=== PATIENT | male | born 1960 | race Caucasian/White ===

== ENCOUNTER 2020-01-30 18:47 | Inpatient (IN) | payer OTHER, SELFPAY ==
[2020-01-30] VITALS (30 sets, daily range): BP systolic 98–209; BP diastolic 52–139; PULSE 83–127; RESP 10–35; TEMP 36–36.6; O2SAT 95–99
--- NOTE | 2020-01-30 18:30 | RT.EKG_ITS ---
APPROVED REPORT Exam: Resting ECG Patient Location: E HR:95 bpm ECG Measurements Heart Rate 95 AXIS NJ 161 P 65 QRSd 90 QRS -31 QT 354 T 42 QTc 445 Conclusion Sinus rhythm...normal P axis, V-rate 60- 99 Left axis deviation...QRS axis (-30,-90)
[2020-01-30 19:07] LABS: BE (Venous) -1 mmol/L (-2-3); HCO3 (Venous) 24 mmol/L (23-28); O2 Sat (Venous) 86 %; TCO2 (Venous) 21 mmol/L (24-29); pCO2 (Venous) 41 mmHg (41-51); pH (Venous) 7.38 (7.31-7.41); pO2 (Venous) 51 mmHg
[2020-01-30 19:09] LABS: Abs Immature Grans 0.02 10^3/uL (0.0-0.06); Absolute Basophil Count 0.05 10^3/uL (0.0-0.2); Absolute Eosinophil Count 0.09 10^3/uL (0.0-0.7); Absolute Lymphocyte Count 2.75 10^3/uL (1.2-3.4); Absolute Monocyte Count 0.45 10^3/uL (0.1-0.8); Absolute Neutrophil Count 3.73 10^3/uL (1.2-6.7); Basophils % 0.7; Eosinophils % 1.3; HGB 14.8 g/dL (13.5-17.5); Immature Grans % 0.3; Lymphocytes % 38.8; MCH 29.3 pg (27.0-33.0); MCHC 35.2 % (32.0-36.0); MCV 83.2 fL (80-95); MPV 10.5 fL (8.0-11.0); Monocytes % 6.3; Neutrophils % 52.6; Nucleated RBC 0 %; Platelet Count 207 10^3/uL (130-400); RBC 5.05 10^6/uL (4.36-5.78); RDW 12.3 % (11.8-14.1); RDW-SD 37.4 fL; WBC 7.09 10^3/uL (4.4-10.8)
[2020-01-30] MEDS: PROPOFOL 1,000 MG/100 ML BTL 3 MG IVPB (19:15)
--- NOTE | 2020-01-30 19:15 | DI.CT_ITS ---
EXAM: CT HEAD CERVICAL SPINE WO CLINICAL HISTORY: trauma TECHNIQUE: COMPARISON: CT HEAD WITHOUT CONTRAST from 04/20/2013 FINDINGS: CT examination cervical spine was performed utilizing multi slice acquisition and multiplanar reconst ruction. There is an ET tube and NG tube in position. There is an anterior cervical fusion at C5-6 level which appears intact. There are degenerative changes of the cervical spine. There is no evide nce of acute fracture. No cervical mass or. No facet dislocation. Noncontrast cranial CT was performed. Ventricular system is normal in appearance. There is no evide nce of acute intracranial hemorrhage, mass effect, or midline shift. The orbital and temporal bone s tructures appear intact. Mastoid air cells and visualized paranasal sinuses predominantly clear. IMPRESSION: No evidence of acute cervical spine fracture. No evidence of acute intracranial injury. RADIATION DOSE DELIVERED: 1,566.18mGy.cm Total DLP
--- NOTE | 2020-01-30 19:15 | DI.CT_ITS ---
EXAM: CT THORAX ABD/PEL CTA TECHNIQUE: CT examination of the chest, abdomen, and pelvis was performed with bolus infusion of 100 cc of Omnipaque 350. COMPARISON: CT ABD PELVIS WITH CONTRAST from 07/14/2009 FINDINGS: There is no evidence of a thoracic vascular injury. There are dependent areas of increased intrapul monary radiodensity, atelectasis versus aspiration pneumonia versus contusion.. No pneumothorax or p leural effusion. No mediastinal hematoma. No adenopathy in the chest. Tracheobronchial tree appears i ntact. The liver shows marked steatosis. The spleen, and pancreas appear normal. Gallbladder and bile ducts are normal. Adrenals and kidneys are unremarkable except for multiple bilateral incidental renal cysts.. No evid ence of urinary tract injury or obstruction. No abdominal or pelvic vascular injury seen. 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 No abdominal or pelvic adenopathy. No significant abdominal wall hernia or he matoma. No evidence of bowel injury. No fracture identified in the region surveyed. IMPRESSION: Dependent atelectasis of both lungs versus aspiration or less likely pulmonary contusion. Follow-up chest radiographs requested. RADIATION DOSE DELIVERED: 1,340.08mGy.cm Total DLP 1,340.08mGy.cm Total DLP DATA REPOSITORY: All CT scans at this facility are submitted to the National Radiology Data Registry (NRDR) Dose Index Registry (DIR) with the [employer] ([employer]). RADIATION OPTIMIZATION: All CT scans at this facility use at least one of these dose optimization te chniques: automated exposure control; mA and/or kV adjustment per patient size (includes targeted exa ms where dose is matched to clinical indication); or iterative reconstruction.
[2020-01-30] MEDS: fentaNYL 1,000 MCG in Normal Saline 80 ML 9.9 MCG IV (19:18)
--- NOTE | 2020-01-30 19:19 | ED.GENADUL_ITS ---
Discharge Plan Disposition Patient Disposition: [facility] INPATIENT Condition: Critical Discharge Details Clinical Impression: Chest pain, Unresponsive, Alcohol intoxication, Encounter for intubation Primary Care Provider: [facility] Provider: Elliott Lieberman Home Meds and New Rx's Prescriptions: No Action penicillin V potassium 500 MG tablet 500 mg PO QID Qty: 40 RF: 0 acetaminophen-codeine [Tylenol-Codeine #3] 1 TAB tablet 1 tab PO Q4H PRN PRN (Reason: Pain) Qty: 5 RF: 0 Medical Decision Making <Cesario Robertson MD - Last Filed: 01/30/20 19:38> 59 yo male with unknown medical history comes in with ems unresponsive. He was apparently at the [employer] and had 5 alcoholic drinks. HE started to complain of ch est pain there and apparently was given nitro by bystanders (unclear if this was his own nitro or another persons). He then collapsed to the groud and since ems has had him he has been unresponsive to any stimuli. glucose with them was over 200. HE arrives with a gcs of 3, pupils are dilated but are responsive. No reported seizure like activity. No signs of trauma, ekg shows sinus rhythm without ishcemic findings. He had snoring respirations on arrival and was not protecting his airway so I intubated him with a 7.5 ET tube using 100mg rocuronium and 100mg propofol without complications. Unclear etiology of his unresponsiveness and chest pain earlier. Could be just alcohol intoxication but given the fall and chest pain will obtian ct head and c sspine to evaluate for traumatic injuries. Will also obtain cta chest/abd/pelvis to evaluate for disseciton as well. Will obtain labs including troponin, cbc, metabolic panel and drug screen. Pt's labs unremarkable thus far, negative troponin, tolerating the ventilator well, heading to CT now. Pt will be signed out to oncoming provider pending imaging results Differential Diagnosis Differential Diagnosis: tbi, acs, dissection, alcohol intoxication Lab Data Lab results reviewed: Yes I reviewed the patient's lab results. ECG Data Attestation: I personally reviewed and interpreted this ECG (s) as follows: Prior ECG tracings: not available for review Interpretation: sinus rhythm, rate of 95, pr 161, qtc 445 <Elliott Lieberman DO - Last Filed: 01/30/20 22:58> Upon my evaluation, this patient had a high probability of imminent or life- threatening deterioration, which required my direct attention, intervention, and personal management. I have personally provided 30 minutes of critical care time exclusive of time spent on separately billable procedures. Time includes review of laboratory data, radiology results, discussion with consultants, managing the ventilator, sedatives, and monitoring for potential decompensation. Interventions were performed as documented. Patient was signed out to me by my colleague Dr. Cesario Aguero, please refer to his HPI assessment and plan physical exam. Patient was intubated prior to my arrival, started on medications work-up was started we are pending read of imaging and the return of the rest of his labs. Laboratory work-up has returned, relatively unremarkable, no white count bandemia or left shift, CT scan of the chest abdomen pelvis is positive for signs of aspiration pneumonia, CT scan of the head neck is negative for acute process per virtual radiology. Zosyn was started for suspected aspiration pneumonia, VBG unremarkable, electrolytes demonstrate a sodium of 129, calcium of 7.6, both of which I feel unlikely to be the cause of the patient's symptomatology, proBNP and initial troponin are negative, TSH benign, urine drug screen here negative, sugar elevated, salicylates and acetaminophen negative, ethyl alcohol 132. Patient was initially sedated with propofol and fentanyl, Versed was then added, eventually on these the patient began to slowly start to wake up, with purpose ful movements of all extremities, and vaguely interacting and responding to her questions and statements. He has tried writing on a board. He does not appear to be bucking the vent at this time, and appears stable. Uncertain as to the exact etiology of the cause of the patient's symptoms, I do wonder if he had dysrhythmia, and then became altered secondary to transient intracranial ischemia from the dysrhythmia. Although he is on multiple sedatives he does not seem to show significant focal deficit at this time. No indication for TPA currently. I think this would be harmful for the patient in the current scenario. I did contact the hospital and she will come and assess the patient. [facility] secondary to a lack of room availability at the hospital. 10:56 PM Patient will be admitted for further management. I have extensively reviewed the treatment plan with the patient. I have addressed all patient concerns at this time. I have also discussed the plan with the admitting physician and they agree with the current assessment and plan and have agreed to assume responsibility for the patient. All parties demonstrate verbal understanding and agreement with our assessment and plan at this time. FINDINGS: Brain: Normal. No hemorrhage. Unremarkable white matter. No mass effect. Cerebral ventricles: No ventriculomegaly. Bones/joints: Unremarkable. No acute fracture. Paranasal sinuses: There is a small amount of fluid in the right maxillary sinus and a nasal mucosal thickening and opacification of a few ethmoid air cells. Mastoid air cells: Visualized mastoid air cells are well aerated. Soft tissues: Unremarkable. Nasal cavity: There is minimal nasal mucosal thickening IMPRESSION: 1. No acute intracranial abnormality. 2. Evidence of sinus inflammation. FINDINGS: Tubes, catheters and devices: Orotracheal tube terminates in the upper trachea at the level of T2. Orogastric tube traverses the visualized portion of the upper esophagus. Bones/joints: There is surgical fusion C5-C6 including anterior orthopedic plate. No acute fracture or spondylolisthesis. Discs/Spinal canal/Neural foramina: No significant disc protrusion. No severe spinal canal stenosis. No significant neural foraminal narrowing. Soft tissues: Unremarkable. Lungs: Lung apices are normal. IMPRESSION: No acute findings. Thank you for allowing us to participate in the care of your patient. Dictated and Authenticated by: Dell Maurer MD 01/30/2020 8:21 PM Eastern Time ([place] & [place]) IMPRESSION: 1. No thoracic aortic dissection or aneurysm. 2. Dependent bibasilar airspace opacities, right greater than left, some of which represents atelectasis but there may be underlying aspiration or bronchopneumonia in these regions as well. Recommend clinical correlation. IMPRESSION: 1. No abdominal aortic aneurysm or dissection identified. 2. No acute process within the abdomen or pelvis identified. 3. 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 4. Hepatic steatosis. 5. Multiple simple renal cysts. No follow-up is recommended. Thank you for allowing us to participate in the care of your patient. Dictated and Authenticated by: Freddie Ashley MD 01/30/2020 8:40 PM Eastern Time ([place] & [place]) HPI <Cesario Robertson MD - Last Filed: 01/30/20 19:38> General Mode of arrival: EMS . Date/Time Provider Initiated Documentation: 01/30/20 19:13 . Limitations to Documentation: altered mental status . Information obtained by: EMS . History of Present Illness 59 year old M presents to the emergency department with the chief complaint of unresponsive, Patient started experiencing this hour(s) (1) and it has been constant. Patient notes chest pain. Related Data Home Medications Medication Instructions Recorded Confirmed acetaminophen-codeine [Tylenol 1 tab PO Q4H PRN PRN #5 tab 06/09/15 W/Codeine #3 Tablet] penicillin V potassium 500 mg PO QID #40 tablet 06/09/15 Previous Rx's Medication Instructions Recorded acetaminophen-codeine [Tylenol 1 tab PO Q4H PRN PRN #5 tab 06/09/15 W/Codeine #3 Tablet] penicillin V potassium 500 mg PO QID #40 tablet 06/09/15 Allergies Allergy/AdvReac Type Severity Reaction Status Date / Time No Known Allergies Allergy Unverified 06/09/15 22:23 Review of Systems <Cesario Robertson MD - Last Filed: 01/30/20 19:38> Unobtainable due to mental status PFSH <Cesario Robertson MD - Last Filed: 01/30/20 19:38> Social History Smoking/Tobacco Use Status: Never Alcohol Intake: current Drug use: Never Exam <Cesario Robertson MD - Last Filed: 01/30/20 19:38> Const General: other (unresponsive) Orientation: alert [facility] Head: normal to inspection Ears: external ears normal General nose exam: external nose normal Mouth: moist mucous membranes Eyes General: appearance normal, both eyes and all related structures Neck Neck: normal visual inspection Resp Effort & Inspection: normal respiratory effort Cardio Rate: regular rate GI Palpation: soft Skin General skin exam: no rashes or lesions noted Neuro General: patient obtunded Extrem General: normal to inspection Psych Mental Status: mental status grossly normal Course <Cesario Robertson MD - Last Filed: 01/30/20 19:38> Lab/Test Results Lab/Test Results: Laboratory Tests Range/Units 01/30/20 01/30/20 01/30/20 18:38 19:00 19:00 WBC (4.4-10.8) 10^3/uL 7.09 RBC (4.36-5.78) 10^6/uL 5.05 Hgb (13.5-17.5) g/dL 14.8 Hct (40.0-50.0) % 42.0 MCV (80-95) fL 83.2 MCH (27.0-33.0) pg 29.3 MCHC (32.0-36.0) % 35.2 RDW (11.8-14.1) % 12.3 Plt Count (130-400) 10^3/uL 207 MPV (8.0-11.0) fL 10.5 Immature Gran % 0.3 Neutrophils % 52.6 Lymphocytes % 38.8 Monocytes % 6.3 Eosinophils % 1.3 Basophils % 0.7 Nucleated RBC % % 0 Absolute Neutrophils (1.2-6.7) 10^3/uL 3.73 Absolute Lymphocytes (1.2-3.4) 10^3/uL 2.75 Absolute Monocytes (0.1-0.8) 10^3/uL 0.45 Absolute Eosinophils (0.0-0.7) 10^3/uL 0.09 Absolute Basophils (0.0-0.2) 10^3/uL 0.05 VBG pH (7.31-7.41) 7.38 VBG pCO2 (41-51) mmHg 41 VBG pO2 mmHg 51 VBG HCO3 (23-28) mmol/L 24 VBG Total CO2 (24-29) mmol/L 21 L VBG O2 Saturation % 86 VBG Base Excess (-2-3) mmol/L -1 Sodium Cancelled Potassium Cancelled Chloride Cancelled Carbon Dioxide Cancelled Anion Gap Cancelled BUN Cancelled Creatinine Cancelled Estimated GFR/1.73 m2 Cancelled Glucose Cancelled Calcium Cancelled Procedures <Cesario Robertson MD - Last Filed: 01/30/20 19:38> Intubation Time out performed: Yes sedative: other (propofol) Mg Given: 100 paralytic: Rocuronium Mg Given: 100 Laryngoscope: fiberoptic video scope (size 4 cmac mac blade) ET Tube Size: 7.5 ET Tube Uncuffed: No Tube Secured Depth (cm): 22 Tube Secured Location: lips Tube Placement Confirmation: visualized tube passing through cords, equal breath sounds bilaterally, no breath sounds over epigastrum and confirmation by capnometry Patient Tolerated Procedure: no complications Intubation Complications: none Critical Care Time <Cesario Robertson MD - Last Filed: 01/30/20 19:38> Critical Care Time Critical Care Time: Yes Total Critical Care Time: 60 (minutes) Attestation: time spent with frequent reassessments, hemodynamic monitoring and lab review in patient with gcs of 3 requiring intubation and potential to deteriorate at any time Sign Out <Cesario Robertson MD - Last Filed: 01/30/20 19:38> Sign Out Data: Sign Out Comment: Unknown medical history, was at [facility] drinking alcohol when he complained of chest pain and was given nitro by bystanders then collapsed. GCS of 3 on arrival in ED, ct head/cspine and cta chest/abd/pelvis pending Last updated by Cesario Robertson MD at 01/30/20 19:41
[2020-01-30 19:33] LABS: Albumin 3.6 g/dL (3.4-5.0); Alkaline Phosphatase 83 U/L (46-116); BUN 11 mg/dL (7-18); Bilirubin, Total 0.6 mg/dL (0.2-1.0); CREATININE 0.96 mg/dL (0.70-1.30); Calcium 7.6 mg/dL (8.5-10.1); Chloride 95 mmol/L (98-107); ETHANOL BLOOD 132.3 mg/dL (<3); Lipase 99 U/L (73-393); Magnesium 2.2 mg/dL (1.8-2.4); NT-proBNP 20 pg/mL (<300); Potassium 3.9 mmol/L (3.5-5.1); Sodium 129 mmol/L (136-145); TSH (W/Ref FT4) 1.31 uIU/mL (0.36-3.74); Total Protein 7.2 g/dL (6.4-8.2); Troponin I < 0.05 ng/mL (<0.06)
[2020-01-30 19:34] LABS: Glucose 356 mg/dL (74-106)
[2020-01-30 19:36] LABS: Salicylate < 2.8 mg/dL (2.8-20.0)
[2020-01-30] MEDS: Vecuronium 10 MG VIAL IVP (19:38)
[2020-01-30 19:47] LABS: Acetaminophen < 2 ug/mL (10-30)
--- NOTE | 2020-01-30 20:22 | DI.VRAD_ITS ---
PROCEDURE INFORMATION: Exam: CT Head Without Contrast Exam date and time: 01/30/2020 7:52 PM Age: 59 years old Clinical indication: Injury or trauma; Blunt trauma (contusions or hematomas); Unconscious; Injury date: 01/30/20; Injury details: Fall from standing hit head TECHNIQUE: Imaging protocol: Computed tomography of the head without contrast. Radiation optimization: All CT scans at this facility use at least one of these dose optimization techniques: automated exposure control; mA and/or kV adjustment per patient size (includes targeted exams where dose is matched to clinical indication); or iterative reconstruction. COMPARISON: CT HEAD WITHOUT CONTRAST 04/20/2013 8:21 PM FINDINGS: Brain: Normal. No hemorrhage. Unremarkable white matter. No mass effect. Cerebral ventricles: No ventriculomegaly. Bones/joints: Unremarkable. No acute fracture. Paranasal sinuses: There is a small amount of fluid in the right maxillary sinus and a nasal mucosal thickening and opacification of a few ethmoid air cells. Mastoid air cells: Visualized mastoid air cells are well aerated. Soft tissues: Unremarkable. Nasal cavity: There is minimal nasal mucosal thickening IMPRESSION: 1. No acute intracranial abnormality. 2. Evidence of sinus inflammation. PROCEDURE INFORMATION: Exam: CT Cervical Spine Without Contrast Exam date and time: 01/30/2020 7:52 PM Age: 59 years old Clinical indication: Injury or trauma; Blunt trauma (contusions or hematomas); Unconscious; Injury date: 01/30/20; Injury details: Fall from standing hit head TECHNIQUE: Imaging protocol: Computed tomography images of the cervical spine without contrast. Radiation optimization: All CT scans at this facility use at least one of these dose optimization techniques: automated exposure control; mA and/or kV adjustment per patient size (includes targeted exams where dose is matched to clinical indication); or iterative reconstruction. COMPARISON: CT HEAD WITHOUT CONTRAST 04/20/2013 8:21 PM FINDINGS: Tubes, catheters and devices: Orotracheal tube terminates in the upper trachea at the level of T2. Orogastric tube traverses the visualized portion of the upper esophagus. Bones/joints: There is surgical fusion C5-C6 including anterior orthopedic plate. No acute fracture or spondylolisthesis. Discs/Spinal canal/Neural foramina: No significant disc protrusion. No severe spinal canal stenosis. No significant neural foraminal narrowing. Soft tissues: Unremarkable. Lungs: Lung apices are normal. IMPRESSION: No acute findings. Dictated and Authenticated by: Dell Maurer MD. Ordering:ALISTAIR Nassar MD
[2020-01-30] MEDS: Omnipaque 350 MG/ML 100 ML BTL IJ (20:24)
[2020-01-30] MEDS: Normal Saline - Diluent 50 ML VIAL IV (20:25)
[2020-01-30] MEDS: Normal Saline Flush 10 ML SYR IVP (20:25)
[2020-01-30 20:31] LABS: ALT 36 U/L (16-63); AST 22 U/L (15-37)
[2020-01-30 20:32] LABS: Bilirubin, Direct 0.08 mg/dL (0.00-0.20)
[2020-01-30] MEDS: PIPERACILLIN/TAZO 4.5 GM in Normal Saline 100 ML IVPB (20:38)
--- NOTE | 2020-01-30 20:40 | DI.VRAD_ITS ---
PROCEDURE INFORMATION: Exam: CT Angiography Chest With Contrast Exam date and time: 01/30/2020 7:19 PM Age: 59 years old Clinical indication: Type not specified; Other: Chest pain, unresponsivr; Patient HX: Chest pain, unresponsive TECHNIQUE: Imaging protocol: Computed tomographic angiography of the chest with intravenous contrast. 3D rendering (Not supervised by radiologist): MIP and/or 3D reconstructed images were created by the technologist. Radiation optimization: All CT scans at this facility use at least one of these dose optimization techniques: automated exposure control; mA and/or kV adjustment per patient size (includes targeted exams where dose is matched to clinical indication); or iterative reconstruction. Contrast material: OMNIPAQUE 350; Contrast volume: 100 ml; Contrast route: INTRAVENOUS (IV); COMPARISON: CR ABD FLAT UPRIGHT PA CHEST 08/10/2014 10:11 PM FINDINGS: Tubes, catheters and devices: There is an endotracheal tube in place with its tip at the level of the clavicular heads. There is a nasogastric tube in place, with its tip within the lateral gastric body. Pulmonary arteries: See Aorta finding. Aorta: There is no thoracic aortic dissection or aneurysm. Evaluation for pulmonary embolism is limited due to suboptimal opacification of the central pulmonary arteries, but no central pulmonary embolism is identified on this exam. Lungs: There are dependent bibasilar airspace opacities, some of which appears to represent atelectasis, but there may be underlying aspiration or bronchopneumonia in these regions as well. There is mild atelectasis within the lingula. Pleural space: Unremarkable. No pneumothorax. No pleural effusion. Heart: Heart size is normal. There is no bowing of the interventricular septum or disproportionate enlargement of the right heart. No pericardial effusion is identified. Lymph nodes: Unremarkable. No enlarged lymph nodes. Bones/joints: There is anterior fusion hardware at C5-C6 which appears grossly intact. No acute fractures or subluxations are identified. Soft tissues: Unremarkable. IMPRESSION: 1. No thoracic aortic dissection or aneurysm. 2. Dependent bibasilar airspace opacities, right greater than left, some of which represents atelectasis but there may be underlying aspiration or bronchopneumonia in these regions as well. Recommend clinical correlation. PROCEDURE INFORMATION: Exam: CT Angiography Abdomen and Pelvis With Contrast Exam date and time: 01/30/2020 7:19 PM Age: 59 years old Clinical indication: Type not specified; Other: Chest pain, unresponsivr; Patient HX: Chest pain, unresponsive TECHNIQUE: Imaging protocol: Computed tomographic angiography of the abdomen and pelvis with intravenous contrast material. 3D rendering (Not supervised by radiologist): MIP and/or 3D reconstructed images were created by the technologist. Radiation optimization: All CT scans at this facility use at least one of these dose optimization techniques: automated exposure control; mA and/or kV adjustment per patient size (includes targeted exams where dose is matched to clinical indication); or iterative reconstruction. Contrast material: OMNIPAQUE 350; Contrast volume: 100 ml; Contrast route: INTRAVENOUS (IV); COMPARISON: CR ABD FLAT UPRIGHT PA CHEST 08/10/2014 10:11 PM FINDINGS: Aorta: See Celiac trunk and mesenteric arteries finding. Celiac trunk and mesenteric arteries: There is focal narrowing of the origin of the celiac axis, best seen on image 68, series 8, suggesting mass effect associated with the adjacent median arcuate ligament. The distal celiac axis enhances normally. There is no aneurysm or dissection involving the abdominal aorta or iliac arteries. There is mild atherosclerotic calcification of the inferior aspect of the abdominal aorta. Renal arteries: No occlusion or significant stenosis. Right iliac arteries: No occlusion or significant stenosis. Left iliac arteries: No occlusion or significant stenosis. Liver: The liver parenchyma demonstrates diffusely decreased attenuation suggesting steatosis. Gallbladder and bile ducts: Unremarkable. No calcified stones. No ductal dilation. Pancreas: Unremarkable. No mass. No ductal dilation. Spleen: Unremarkable. No splenomegaly. Adrenals: Unremarkable. No mass. Kidneys and ureters: There are multiple bilateral simple renal cysts, the largest measuring 5.7 x 6.6 cm at the lateral lower pole the left kidney on image 91, series 4. Stomach and bowel: Unremarkable. No obstruction. No mucosal thickening. Appendix: No evidence of appendicitis. Intraperitoneal space: Unremarkable. No free air. No significant fluid collection. Lymph nodes: Unremarkable. No enlarged lymph nodes. Urinary bladder: Unremarkable. No mass. Reproductive: Unremarkable as visualized. Bones/joints: No acute fractures or subluxations are identified. Soft tissues: Unremarkable. IMPRESSION: 1. No abdominal aortic aneurysm or dissection identified. 2. No acute process within the abdomen or pelvis identified. 3. 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 4. Hepatic steatosis. 5. Multiple simple renal cysts. No follow-up is recommended. Dictated and Authenticated by: Freddie Ashley MD. Ordering:ALISTAIR Nassar MD
[2020-01-30 20:46] LABS: Bilirubin Negative (Negative); Blood Negative (Negative); Clarity Clear (Clear); Glucose 500 mg/dL (Negative); Ketones Negative (Negative); Leukocyte Esterase Negative (Negative); Nitrite Negative (Negative); Urobilinogen 0.2 EU/dL (Up TO 0.2); pH 6.5 (5-8)
[2020-01-30 20:56] LABS: Bacteria Negative HPF (Negative); C & S Indicated? No; Casts Negative LPF (Negative); Crystals Negative HPF (Negative); Epithelial Cells Negative HPF (Negative); Mucus Negative (Negative); Other Cells Negative (Negative); RBC Negative HPF (0-2); WBC Negative HPF (0-5)
[2020-01-30 21:00] LABS: *AMPHETAMINES SCREEN URINE Negative (Negative); *BARBITURATES SCREEN URINE Negative (Negative); *BENZODIAZEPINES SCREEN URINE Negative (Negative); Cannabinoids THC Negative (Negative); Cocaine Screen,Urine Negative (Negative); METHADONE URINE SCREEN Negative (Negative); OPIATES URINE SCREEN Negative (Negative)
[2020-01-30 21:01] LABS: Tricyclic Antidepressants Negative (Negative)
[2020-01-30] MEDS: MIDAZOLAM 50 MG in Normal Saline 90 ML IV (21:14)
[2020-01-30 22:03] LABS: BE -4 mmol/L (-2-3); HCO3 22 mmol/L (22-26); pCO2 48 mmHg (35-45); pH 7.28 (7.35-7.45); pO2 85 mmHg (80-105); sO2 96 % (95-98); tCO2 20 mmol/L (23-27)
[2020-01-30 22:06] LABS: FIO2 40 %; Site Right Radial
--- NOTE | 2020-01-30 22:10 | NUR.NOTE ---
Nursing Note: Rapid Intubation Note: Propofal 100 mg given @ 190 Sean 100 mg given @ 190 Intubated @ 1909, 7.5 ET 22 @ lip
[2020-01-30 22:26] LABS: Troponin I < 0.05 ng/mL (<0.06)
--- NOTE | 2020-01-30 23:09 | HPE_ITS ---
Date of service: 01/30/20 Time of Service: 22:50 Assessment and Plan Assessment and plan (1) LOC (loss of consciousness): Status: Acute Assessment and plan: preceded by chest pain. DDx: syncope, non-convulsive status epilepticus, CVA/hypoperfusion, alcohol intoxication The patient could not protect airway and was intubated. Since the patient's mental status was already improving in the ED and he was noted to be waking up while on propofol, versed, and fentanyl, I trust that the process was transient and he should be able to be extubated within the next 24 hours. (2) On mechanically assisted ventilation: Status: Acute Assessment and plan: As above. Does have evidence of aspiration PNA, so this is being treated with IV zosyn. Checking ABG now that the patient's rate was increased to 18 (from 15) as he did have evidence of mild respiratory acidosis/CO2 retention. We will do daily ABGs, sedation vacations, plan for extubation within the next 24 hours. (3) Aspiration pneumonia: Status: Acute Assessment and plan: Continue zosyn started in the ED. Is considered a PUI for COVID-19. (4) Chest pain: Status: Acute Assessment and plan: No ACS by troponins. However, the patient also had chest pains in June of this year for which he was seen at the [place] and was recommended to have outpatient stress test. At the time, his chest pain was relieved with nitroglycerin. We will contact his PCP to see if this stress test happened. The patient would benefit from having a stress test prior to discharge. For now, monitor on a vehicle monitor technician. Start rectal Asa as intubated. (5) Alcohol intoxication: Status: Acute Assessment and plan: Reviewing [facility] records, the patient was in remission as of November of 2019, so this is a recurrence of drinking. Unfortunately, I do not know whether the patient has ever had an alcohol withdrawal seizure. Certaily, the patient is at risk of withdrawal, which we should keep in mind when attempting to extubate him. Start banana bag/IV thiamine. (6) Non-insulin dependent type 2 diabetes mellitus: Status: Chronic Assessment and plan: Cover with SSI Q6H (7) CAD (coronary artery disease): Status: Chronic Assessment and plan: Per [facility] ED notes from 06/2019, the patient had an SD in his 30s. No further details are provided. As above, we will investigate if the patient ever had a stress test. (8) Hyperlipidemia: Status: Chronic Assessment and plan: Check fasting lipid panel. Not on a statin at this time. (9) Hypertension: Status: Chronic Assessment and plan: Not on antihypertensives as outpatient. Will monitor BPs here. (10) DVT prophylaxis: Status: Acute Assessment and plan: lovenox, teds, SCDS. (11) Discharge planning issues: Status: Acute Assessment and plan: Full code. Total Critical Care Time 60 minutes. History of Present Illness History of Present Illness Chief Complaint: chest pain followed by prolonged episode of LOC Narrative: Mr Deleon is a 59 year old male with PMHx of CAD s/p SD, NIDDM2, hypertension, hyperlipidemia, Alcohol dependence, CORDELIA (?on CPAP), TBI, who, per ED provider report, was drinking at [employer] when he reported chest pain, for which he took nitroglycerin (unclear if it was his or someone else's), following which he collapsed to the ground and became unresponsive, which he still was at the time of EMS evaluation and remained so during transfer to [facility] ED. Here, his GCS was 3 and he was felt to not be able to protect his airway. He was intubated, using rocuronium and propofol. His workup in the ED oswald s so far revealed what appears to be aspiration pneumonia, but is otherwise negative. The patient remains intubated, sedated. [facility], but [facility] due to lack of beds/resources. Hospitalists were asked to take over care. The patient cannot provide any history due to being intubated/sedated. Review of Systems Unobtainable due to endotracheal tube [facility] Medical History (Updated 01/31/20 @ 00:05 by Poly Briceno MD) Alcohol dependence CAD (coronary artery disease) Cervical radiculopathy due to degenerative joint disease of spine Hyperlipidemia Hypertension Impulse control disorder Internal thrombosed hemorrhoids Late effects of self-inflicted injury Major depressive disorder, recurrent, unspecified Migraines [facility], during his early 30s Neck pain Non-insulin dependent type 2 diabetes mellitus Obstructive sleep apnea OCD (obsessive compulsive disorder) Polysubstance abuse PTSD (post-traumatic stress disorder) Rectal bleeding Rosacea Sleep disturbance TBI (traumatic brain injury) Surgical History (Updated 01/30/20 @ 23:20 by Poly Briceno MD) Status post cervical discectomy Family History (Updated 01/30/20 @ 23:31 by Poly Briceno MD) Other Family history unobtainable due to patient's condition Social History Smoking/Tobacco Use Status: Never Alcohol Intake: current Drug use: Never Meds Home Medications and Allergies Home Medications Medication Instructions Recorded Confirmed Type cyclobenzaprine 10 mg PO BID PRN 01/30/20 01/30/20 History ibuprofen 800 mg PO TID PRN PRN 01/30/20 01/30/20 History metformin 1,000 mg PO BID AC 01/30/20 01/30/20 History mirtazapine 60 mg PO HS 01/30/20 01/30/20 History paroxetine HCl 80 mg PO HS 01/30/20 01/30/20 History Allergies Allergy/AdvReac Type Severity Reaction Status Date / Time No Known Allergies Allergy Unverified 06/09/15 22:23 Exam Narrative Exam Narrative: General: Obese male, intubated, sedated Neurological: Eyes closed, does not open to voice or pain (sedated), pupils 3 mm, symmetric, not tracking, not following commands Psychiatric: unable to evaluate due to being sedated Skin: visible skin intact HEENT: Atraumatic, normocephalic, eyes closed, ET tube in place, C-collar in place Cardiovascular: RRR, no m/r/g Lungs: Ventilator respiratory sounds Gastrointestinal: soft, nondistended Genitourinary: has a marrero Extremities: no edema BLEs Results Imaging Additional studies: CT head w/o contrast: 1. No acute intracranial abnormality. 2. Evidence of sinus inflammation. CT c-spine w/o contrast: No acute findings. CT chest: 1. No thoracic aortic dissection or aneurysm. 2. Dependent bibasilar airspace opacities, right greater than left, some of which represents atelectasis but there may be underlying aspiration or bronchopneumonia in these regions as well. Recommend clinical correlation. Evaluation for pulmonary embolism is limited due to suboptimal opacification of the central pulmonary arteries, but no central pulmonary embolism is identified on this exam. CTA abdomen/pelvis: 1. No abdominal aortic aneurysm or dissection identified. 2. No acute process within the abdomen or pelvis identified. 3. 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 4. Hepatic steatosis. 5. Multiple simple renal cysts. No follow-up is recommended. EKG: ST, HR 95, L axis deviation, Peaked T waves, no acute ischemia Labs Result diagrams: 01/30/20 19:00 01/30/20 19:00 Labs: Laboratory Results - last 24 hr 01/30/20 01/30/20 01/30/20 18:38 19:00 19:00 WBC RBC Hgb Hct MCV MCH MCHC RDW Plt Count MPV Immature Gran % Neutrophils % Lymphocytes % Monocytes % Eosinophils % Basophils % Nucleated RBC % Absolute Neutrophils Absolute Lymphocytes Absolute Monocytes Absolute Eosinophils Absolute Basophils ABG Sample Site ABG pH ABG pCO2 ABG pO2 ABG HCO3 ABG Total CO2 ABG O2 Saturation ABG Base Excess VBG pH VBG pCO2 VBG pO2 VBG HCO3 VBG Total CO2 VBG O2 Saturation VBG Base Excess Oxygen Liter Flow FiO2 Sodium Cancelled 129 L Potassium Cancelled 3.9 Chloride Cancelled 95 L Carbon Dioxide Cancelled 21.0 Anion Gap Cancelled 13.0 H BUN Cancelled 11 Creatinine Cancelled 0.96 Estimated GFR/1.73 m2 Cancelled >= 60.00 Glucose Cancelled 356 H Calcium Cancelled 7.6 L Magnesium 2.2 Total Bilirubin 0.6 Conjugated Bilirubin 0.08 AST 22 ALT 36 Alkaline Phosphatase 83 Troponin I NT-Pro-B Natriuret Pep 20 Total Protein 7.2 Albumin 3.6 Lipase 99 TSH 1.31 Urine Color Urine Clarity Urine pH Ur Specific [place] Urine Protein Urine Ketones Urine Blood Urine Nitrite Urine Bilirubin Urine Urobilinogen Ur Leukocyte Esterase Urine RBC Urine WBC Ur Epithelial Cells Urine Crystals Urine Bacteria Urine Casts Urine Mucus Urine Other Ur Culture Indicated? Urine Glucose Salicylates Urine Opiates Screen Urine Methadone Screen Acetaminophen < 2 Ur Barbiturates Screen Ur Tricyclics Screen Ur Amphetamines Screen U Benzodiazepines Scrn Urine Cocaine Screen Ur THC Screen Ethyl Alcohol 132.3 01/30/20 01/30/20 01/30/20 19:00 19:00 19:00 WBC 7.09 RBC 5.05 Hgb 14.8 Hct 42.0 MCV 83.2 MCH 29.3 MCHC 35.2 RDW 12.3 Plt Count 207 MPV 10.5 Immature Gran % 0.3 Neutrophils % 52.6 Lymphocytes % 38.8 Monocytes % 6.3 Eosinophils % 1.3 Basophils % 0.7 Nucleated RBC % 0 Absolute Neutrophils 3.73 Absolute Lymphocytes 2.75 Absolute Monocytes 0.45 Absolute Eosinophils 0.09 Absolute Basophils 0.05 ABG Sample Site ABG pH ABG pCO2 ABG pO2 ABG HCO3 ABG Total CO2 ABG O2 Saturation ABG Base Excess VBG pH 7.38 VBG pCO2 41 VBG pO2 51 VBG HCO3 24 VBG Total CO2 21 L VBG O2 Saturation 86 VBG Base Excess -1 Oxygen Liter Flow FiO2 Sodium Potassium Chloride Carbon Dioxide Anion Gap BUN Creatinine Estimated GFR/1.73 m2 Glucose Calcium Magnesium Total Bilirubin Conjugated Bilirubin AST ALT Alkaline Phosphatase Troponin I NT-Pro-B Natriuret Pep Total Protein Albumin Lipase TSH Urine Color Urine Clarity Urine pH Ur Specific [place] Urine Protein Urine Ketones Urine Blood Urine Nitrite Urine Bilirubin Urine Urobilinogen Ur Leukocyte Esterase Urine RBC Urine WBC Ur Epithelial Cells Urine Crystals Urine Bacteria Urine Casts Urine Mucus Urine Other Ur Culture Indicated? Urine Glucose Salicylates < 2.8 Urine Opiates Screen Urine Methadone Screen Acetaminophen Ur Barbiturates Screen Ur Tricyclics Screen Ur Amphetamines Screen U Benzodiazepines Scrn Urine Cocaine Screen Ur THC Screen Ethyl Alcohol 01/30/20 01/30/20 01/30/20 19:00 19:31 19:31 WBC RBC Hgb Hct MCV MCH MCHC RDW Plt Count MPV Immature Gran % Neutrophils % Lymphocytes % Monocytes % Eosinophils % Basophils % Nucleated RBC % Absolute Neutrophils Absolute Lymphocytes Absolute Monocytes Absolute Eosinophils Absolute Basophils ABG Sample Site ABG pH ABG pCO2 ABG pO2 ABG HCO3 ABG Total CO2 ABG O2 Saturation ABG Base Excess VBG pH VBG pCO2 VBG pO2 VBG HCO3 VBG Total CO2 VBG O2 Saturation VBG Base Excess Oxygen Liter Flow FiO2 Sodium Potassium Chloride Carbon Dioxide Anion Gap BUN Creatinine Estimated GFR/1.73 m2 Glucose Calcium Magnesium Total Bilirubin Conjugated Bilirubin AST ALT Alkaline Phosphatase Troponin I < 0.05 NT-Pro-B Natriuret Pep Total Protein Albumin Lipase TSH Urine Color Yellow Urine Clarity Clear Urine pH 6.5 Ur Specific [place] 1.010 Urine Protein Trace H Urine Ketones Negative Urine Blood Negative Urine Nitrite Negative Urine Bilirubin Negative Urine Urobilinogen 0.2 Ur Leukocyte Esterase Negative Urine RBC Negative Urine WBC Negative Ur Epithelial Cells Negative Urine Crystals Negative Urine Bacteria Negative Urine Casts Negative Urine Mucus Negative Urine Other Negative Ur Culture Indicated? No Urine Glucose 500 H Salicylates Urine Opiates Screen Negative Urine Methadone Screen Negative Acetaminophen Ur Barbiturates Screen Negative Ur Tricyclics Screen Negative Ur Amphetamines Screen Negative U Benzodiazepines Scrn Negative Urine Cocaine Screen Negative Ur THC Screen Negative Ethyl Alcohol 01/30/20 01/30/20 22:00 22:00 WBC RBC Hgb Hct MCV MCH MCHC RDW Plt Count MPV Immature Gran % Neutrophils % Lymphocytes % Monocytes % Eosinophils % Basophils % Nucleated RBC % Absolute Neutrophils Absolute Lymphocytes Absolute Monocytes Absolute Eosinophils Absolute Basophils ABG Sample Site Right radial ABG pH 7.28 L ABG pCO2 48 H ABG pO2 85 ABG HCO3 22 ABG Total CO2 20 L ABG O2 Saturation 96 ABG Base Excess -4 L VBG pH VBG pCO2 VBG pO2 VBG HCO3 VBG Total CO2 VBG O2 Saturation VBG Base Excess Oxygen Liter Flow [id number] FiO2 40 Sodium Potassium Chloride Carbon Dioxide Anion Gap BUN Creatinine Estimated GFR/1.73 m2 Glucose Calcium Magnesium Total Bilirubin Conjugated Bilirubin AST ALT Alkaline Phosphatase Troponin I < 0.05 NT-Pro-B Natriuret Pep Total Protein Albumin Lipase TSH Urine Color Urine Clarity Urine pH Ur Specific [place] Urine Protein Urine Ketones Urine Blood Urine Nitrite Urine Bilirubin Urine Urobilinogen Ur Leukocyte Esterase Urine RBC Urine WBC Ur Epithelial Cells Urine Crystals Urine Bacteria Urine Casts Urine Mucus Urine Other Ur Culture Indicated? Urine Glucose Salicylates Urine Opiates Screen Urine Methadone Screen Acetaminophen Ur Barbiturates Screen Ur Tricyclics Screen Ur Amphetamines Screen U Benzodiazepines Scrn Urine Cocaine Screen Ur THC Screen Ethyl Alcohol Last Vital Signs Temp 36 C L 01/30/20 20:32 Pulse 100 H 01/30/20 21:46 Resp 10 L 01/30/20 21:46 BP 118/92 H 01/30/20 21:46 Pulse Ox 96 01/30/20 21:46 COVID-19 Screening Exposure or possible exposure to illness during travel?: Yes Medical treatment received for symptoms/illness related to travel?: Patient is not able to answer any of the above questions. Possible exposure is presumed since he was drinking [place] the [place]
[2020-01-31] VITALS (84 sets, daily range): BP systolic 105–146; BP diastolic 41–88; PULSE 70–98; RESP 1–23; TEMP 36.3–37.3; O2SAT 89–100
[2020-01-31 00:08] LABS: BE -4 mmol/L (-2-3); HCO3 22 mmol/L (22-26); pCO2 43 mmHg (35-45); pH 7.32 (7.35-7.45); pO2 137 mmHg (80-105); sO2 99 % (95-98); tCO2 20 mmol/L (23-27)
[2020-01-31 00:10] LABS: FIO2 40 %; Site Right Radial
[2020-01-31] MEDS: Normal Saline 1,000 ML 150 ML IV ×2 (00:37→10:00)
[2020-01-31] MEDS: THIAMINE 100 MG in Normal Saline 100 ML 200 MG IVPB (01:10)
[2020-01-31] MEDS: Pantoprazole 40 MG VIAL IVP ×2 (01:15→23:25)
[2020-01-31] MEDS: Albuterol/Ipratropium 3 ML UPD VIAL UPD ×5 (01:16→23:26)
[2020-01-31] MEDS: Aspirin 300 MG SUPP PR ×2 (01:17→09:13)
[2020-01-31] MEDS: Insulin Aspart 300 UNITS/3 ML PEN SC ×5 (01:50→23:22)
[2020-01-31] MEDS: PIPERACILLIN/TAZO 4.5 GM in Normal Saline 100 ML IVPB ×4 (01:51→19:48)
[2020-01-31] MEDS: Lacri-Lube 3.5 GM TUBE OU (01:51)
[2020-01-31] MEDS: MAGNESIUM SULFATE 8.12 MEQ, MULTIVITAMIN 10 ML, THIAMINE 100 MG, FOLIC ACID 1 MG in Nor... 150 MG IV (01:52)
[2020-01-31] MEDS: PROPOFOL 1,000 MG/100 ML BTL 35.7 MG IVPB ×2 (02:22→04:52)
[2020-01-31 06:39] LABS: Lactate 1.7 mmol/L (0.6-1.4)
[2020-01-31 06:45] LABS: Abs Immature Grans 0.03 10^3/uL (0.0-0.06); Absolute Eosinophil Count 0.08 10^3/uL (0.0-0.7); Absolute Lymphocyte Count 2.26 10^3/uL (1.2-3.4); Absolute Monocyte Count 0.77 10^3/uL (0.1-0.8); Basophils % 0.4; Eosinophils % 0.7; HCT 38.6 % (40.0-50.0); HGB 13.6 g/dL (13.5-17.5); Immature Grans % 0.3; MCHC 35.2 % (32.0-36.0); MPV 10.6 fL (8.0-11.0); Monocytes % 6.8; Neutrophils % 71.8; Nucleated RBC 0 %; Platelet Count 202 10^3/uL (130-400); RBC 4.54 10^6/uL (4.36-5.78); RDW 12.8 % (11.8-14.1); RDW-SD 39.6 fL
[2020-01-31] MEDS: MIDAZOLAM 50 MG in Normal Saline 90 ML 13.874 MG IV (06:47)
[2020-01-31 06:48] LABS: Absolute Basophil Count 0.05 10^3/uL (0.0-0.2); Absolute Neutrophil Count 8.11 10^3/uL (1.2-6.7)
[2020-01-31] MEDS: PROPOFOL 1,000 MG/100 ML BTL 38.6 MG IVPB (07:03)
[2020-01-31 07:43] LABS: BE 1 mmol/L (-2-3); HCO3 26 mmol/L (22-26); pCO2 43 mmHg (35-45); pH 7.39 (7.35-7.45); pO2 74 mmHg (80-105); sO2 95 % (95-98); tCO2 23 mmol/L (23-27)
[2020-01-31 07:45] LABS: FIO2 30 %; Site Left Radial
[2020-01-31 07:55] LABS: Cholesterol 488 mg/dL (<200)
[2020-01-31 07:56] LABS: HDL Cholesterol 29 mg/dL (40-60); Triglyceride 3876 mg/dL (<150)
[2020-01-31 07:57] LABS: Anion Gap 11.5 mmol/L (3-11); CO2 21.5 mmol/L (21.0-32.0); Chloride 99 mmol/L (98-107); Potassium 3.6 mmol/L (3.5-5.1); Sodium 132 mmol/L (136-145); TSH 1.25 uIU/mL (0.36-3.74); Troponin I < 0.05 ng/mL (<0.06)
--- NOTE | 2020-01-31 08:00 | DI.US_ITS ---
APPROVED REPORT EXAM: Comprehensive 2D, Doppler, and color-flow Echocardiogram Patient Location: In-Patient Room/Bed: [id number] [employer] Supervisor: Sophie Aden RDCS (AE) Indications: Syncope, Chest pain Other Information Technically limited study due to inability to position patient. Conclusion Normal left ventricular chamber size and wall thickness. Estimated ejection fraction is 55 to 60%. There are no segmental wall motion abnormalities. Normal right ventricular size and function Normal right and left atrial size Mild aortic valve sclerosis without regurgitation or stenosis Mildly thickened mitral leaflets, trace regurgitation Structurally normal tricuspid valve with trace regurgitation. Normal estimated right ventricular sys tolic pressure Structurally normal pulmonic valve Wall motion Left Ventricle The left ventricle is normal size. The left ventricular systolic function is normal. The left ventric ular ejection fraction is within the normal range. There is normal left ventricular wall thickness. T here is normal LV segmental wall motion. There is no ventricular septal defect visualized. LVEF is 56 %. Right Ventricle The right ventricle is normal size. The right ventricular systolic function is normal. The RVSP is 19 .9 mmHg. Atria The left atrium size is normal. The right atrium size is normal. The interatrial septum is intact wit h no evidence for an atrial septal defect. Aortic Valve The Aortic valve is sclerotic. Aortic valve is trileaflet. There is no aortic valvular stenosis. No a ortic regurgitation is present. Mitral Valve Mitral valve leaflets are mildly thickened. No evidence of mitral valve stenosis. Trace mitral regurg itation. Tricuspid Valve The tricuspid valve is normal in structure. There is no tricuspid valve stenosis. Trace tricuspid reg urgitation. Pulmonic Valve The pulmonary valve is normal in structure. There is no pulmonic valvular stenosis. There is no pulmo tania valvular regurgitation. Great Vessels The aortic root is normal in size. The ascending aorta is normal in size. Aortic arch is not visualiz ed. IVC is normal in size and collapses >50% with inspiration. Pericardium There is no pericardial effusion. 2D Dimensions IVSD d PLAX 1.04 cm M: 0.6-1.2 LV Vol A2C d MOD 74.3 mL LVPW d PLAX 1.05 cm M: 0.6 - 1.2 LV Vol A4C d MOD 101.0 mL LVID d PLAX 4.47 cm M: 4.2 - 5.8 LA vol/ BSA A2C s A-L 14.7 mL/m2 LVDs 3.15 cm M: 2.5 - 4.0 LA vol/ BSA A4C s A-L 14.2 mL/m2 Ao Root d 3.01 cm M: 3.1 - 3.7 LA Vol/ BSA Biplane s A-L 14.6 mL/m2 RA Area A4C 14.40 cm2 LA Area A4C s MOD 12.95 cm2 RA Vol/ BSA A4C s A-L 17.5 mL/m2 LA Area A2C s MOD 13.32 cm2 Ao Asc Diam d 3.45 cm M: 2.6 - 3.4 LV EF A4C MOD 55.9 % LV EF Teichholz 55.2 % LV EF A2C MOD 56.9 % LVEF (Yip's) 56.91 % M: 52 - 72 LV EF Biplane MOD 56.9 % LV Volume 64.27 mL M: 62 - 150 SV 50.36 mL LV Volume Index 29.08 mL/m2 M: 34 - 74 SV Index 22.79 mL/m2 LV Vol Biplane MOD 88.5 mL FS 28.55 % M-Mode TAPSE 2.47 cm (M/F) >1.7 LV Diastology MV E' medial 0.086 (>0.07 m/s) E/A Ratio 1.0 LV E/e MED 6.60 (<14) MV E Vmax 0.57 (0.4-1.3 m/s) MV E' lateral 0.084 (>0.1 m/s) MV A Vmax 0.55 (0.4-1.3 m/s) LV E/e LAT 6.70 (<14) MV E/A Ratio 1.00 MV E/E' medial 6.65 MV E/E' lateral 6.74 Aortic Valve LVOT Area 3.33 cm2 AoV Area Vmax 2.44 cm2 LVOT Vmax 1.00 m/s AoV Area/ BSA (Vmax) 1.10 cm2/m2 LVOT Mean Roberto. 0.61 m/s VANESSA Mean Roberto. 2.16 cm2 LVOT Peak Grad 4.0 mmHg VANESSA Mean Roberto. Index 0.98 cm2/m2 LVOT Mean Grad 1.8 mmHg LVOT VTI 0.163 m LVOT Diam s 2.05 cm AoV Vmax 1.36 m/s Velocity Ratio 0.73 AoV Mean Roberto. 0.95 m/s AoV Peak Grad 7.4 mmHg LVOT SV 54.19 mL AoV Mean Grad 4.0 mmHg AoV VTI 0.247 m AoV Area VTI 2.20 cm2 AoV Area/ BSA (VTI) 0.99 cm/m2 Mitral Valve MV DT 256 (160-240 msec) MV PHT 74 msec MV Area PHT 2.97 cm2 Pulmonary Valve PV Vmax 1.14 (0.5-1.5 m/s) RVOT Peak Gr. 1.70 mmHg PV Peak Grad 5.2 mmHg RVOT Mean Gr. 0.85 mmHg PV Mean Grad 2.6 mmHg RVOT VTI 0.117 m PV VTI 0.182 m RVOT Vmax 0.65 m/s Tricuspid Valve TR Peak Grad 16.8 mmHg TR Vmax 2.05 m/s RA Pressure 3.00 mmHg RVSP (TR) 19.9 mmHg
--- NOTE | 2020-01-31 08:15 | DI.RAD_ITS ---
EXAM: XR PORTABLE CHEST AP CLINICAL HISTORY: intubated patient, f/u PNA TECHNIQUE: COMPARISON: CR ABD FLAT UPRIGHT PA CHEST from 08/10/2014 FINDINGS: Semi upright portable chest at 0815 hours. Heart is not enlarged. Lungs are grossly clear and well expanded. There is an ET tube which lies about 8 cm above the gayle. There is an NG tube in place. IMPRESSION: RADIATION DOSE DELIVERED: Total DLP
[2020-01-31 08:16] LABS: Albumin 3.4 g/dL (3.4-5.0); Total Protein 6.3 g/dL (6.4-8.2)
[2020-01-31 08:17] LABS: Bilirubin, Total 0.4 mg/dL (0.2-1.0); Glucose 182 mg/dL (74-106); Magnesium 2.1 mg/dL (1.8-2.4)
[2020-01-31 08:18] LABS: BUN 13 mg/dL (7-18); CREATININE 0.73 mg/dL (0.70-1.30)
[2020-01-31 08:28] LABS: Bilirubin, Direct 0.08 mg/dL (0.00-0.20); Calcium 7.9 mg/dL (8.5-10.1)
[2020-01-31 08:33] LABS: ALT 26 U/L (16-63); AST 21 U/L (15-37); Alkaline Phosphatase 58 U/L (46-116)
[2020-01-31 08:34] LABS: LDL CHOLESTEROL 113 mg/dL (<100)
--- NOTE | 2020-01-31 08:43 | PDOC.CMIN ---
- If Service Date Differs Date of service: 01/31/20 Time of Service: 11:00 Care Management Initial Assess REASON FOR HOSPITALIZATION:: Chest Pain, LOC, Aspiration Pneumonia PAST MEDICAL HISTORY/PAST SURGICAL HISTORY:: Alcohol dependence, CAD, cervical radiculopathy due to degenerative joint disease of spine, hyperlipidemia, hypertension, impulse control disorder, internal thrombosed hemorrhoids, late effects of self-inflicted injury, major depressive disorder recurrent, migrains, OH, neck pain, non-insulin dependent type 2 DM, CORDELIA, OCD, polysubstance abuse, PTSD, rectal bleeding, rosacea, sleep disturbance, TBI, cervical discectomy PREVIOUS FUNCTIONAL STATUS/SOCIAL/FAMILY SUPPORTS:: Unable to attain; patient currently unable to engage in CM assessment. Bryan normally accesses [facility] care at the [facility]. CM left VM for Libby Mason [facility]. CURRENT FUNCTIONAL STATUS:: Bryan was extubated this morning. He continues to be closely monitored in the ICU. ADVANCE DIRECTIVES:: None on file at [facility]. Has patient been provided with info about the portal/API?: No Did the patient sign up for the portal?: No CODE STATUS:: Full Code INSURANCE COVERAGE / FINANCIAL ISSUES:: [facility] CURRENT HOME/COMMUNITY [facility]/E[facility]IP[facility]. PRIMARY CARE PHYSICIAN:: [facility] POTENTIAL DISCHARGE NEEDS:: Follow up appointment with [facility]. PATIENT/FAMILY EDUCATION NEEDS:: Review discharge instructions, discuss Ask Me Three. ANTICIPATED BARRIERS TO DISCHARGE:: None identified at this time. TRANSPORTATION:: TBD by disposition. PLAN:: Bryan will return home when ready per MD. He will be evaluated for further needs to determine discharge plan. CM continues to follow.
[2020-01-31] MEDS: Enoxaparin 40 MG/0.4 ML SYR SC (09:13)
[2020-01-31] MEDS: Normal Saline Flush 10 ML SYR (10:05)
--- NOTE | 2020-01-31 13:29 | PGE_ITS ---
Date of Service Date of service: 01/31/20 Time of Service: 13:30 Assessment and Plan Assessment and plan (1) Non-insulin dependent type 2 diabetes mellitus: Status: Chronic Assessment and plan: On metformin at home; holding now. Diabetic diet. Glucose monitoring. A1c pending. (2) CAD (coronary artery disease): Status: Chronic Assessment and plan: He described CP prior to unresponsive episode; was given a nitroglycerin SL by a friend. Troponin levels normal. No EKG changes. Echocardiogram ordered. Not on an ASA or statin. Total cholesterol of 488. LDL LDL 113. HDL 29. Triglycerides 3876 See hyperlipidemia Begin ASA 81mg daily. Qualifiers: Coronary Disease-Associated Artery/Lesion type: [place] artery [place] vs. transplanted heart: [place] heart (3) Hypertension: Status: Chronic Assessment and plan: Not currently taking an antihypertensive Normotensive currently. Monitor (4) Aspiration pneumonia: Status: Acute Assessment and plan: His CP that he experienced could have been a result of reflux with subsequent aspiration. Alternatively he could have aspirated while unresponsive. Regardless, cont Zosyn and monitor. (5) LOC (loss of consciousness): Status: Acute Assessment and plan: Unclear etiology. No seizure-like activity noted. Blood Etoh level elevated and was drinking at the time but level not at a level that would indicate a blackout. Arrhythmia?. Orthostasis? On telemetry and monitoring. (6) ETOH abuse: Status: Chronic Assessment and plan: Intoxicated on admission. Will begin CIWA monitoring with prn lorazepam. (7) Mixed hyperlipidemia: Status: Acute Assessment and plan: Significantly elevated triglycerides and total cholesterol. Not on any lipid lowering meds. Lipitor 40mg daily; likely will need to titrate upward unless lifestyle modifications are effective; dietary and Etoh cessation. Tricor 145mg daily. Monitor as outpt. (8) Hyponatremia: Status: Acute Assessment and plan: Mild. Monitor. Subjective Subjective Interval history since last seen: Post-extubation, patient is lethargic but answers questions with brief answers. He doesn't recall the events of last PM and why he was brought here. Currently denies pain. Exam Const General: cooperative Nutritional Appearance: overweight Limitations: altered mental status (D/t sedating medications) Eyes General: appearance normal, both eyes and all related structures Sclera: sclerae normal Neck Other: C-collar in place. Resp Effort & Inspection: normal respiratory effort Auscultation: diminished lung sounds, no rales, no rhonchi and no wheezes Cardio Rate: regular rate Rhythm: regular rhythm Heart Sounds: S1 normal and S2 normal GI Palpation: soft and nontender Auscultation: hypoactive bowel sounds Skin General skin exam: no rashes or lesions noted Neuro General: moves all extremities Speech: other (speech is truncated d/t lethargy/sedation. Diminished volume.) Extrem General: no pedal edema and no calf tenderness Objective Last Vital Signs Temp 36.6 C 01/31/20 09:35 Pulse 89 01/31/20 12:01 Resp 14 01/31/20 12:01 BP 122/71 01/31/20 12:01 Pulse Ox 95 01/31/20 12:01 Laboratory Results - last 24 hr 01/30/20 01/30/20 01/30/20 18:38 19:00 19:00 WBC RBC Hgb Hct MCV MCH MCHC RDW Plt Count MPV Immature Gran % Neutrophils % Lymphocytes % Monocytes % Eosinophils % Basophils % Nucleated RBC % Absolute Neutrophils Absolute Lymphocytes Absolute Monocytes Absolute Eosinophils Absolute Basophils ABG Sample Site ABG pH ABG pCO2 ABG pO2 ABG HCO3 ABG Total CO2 ABG O2 Saturation ABG Base Excess VBG pH VBG pCO2 VBG pO2 VBG HCO3 VBG Total CO2 VBG O2 Saturation VBG Base Excess VBG Lactate Oxygen Liter Flow FiO2 Sodium Cancelled 129 L Potassium Cancelled 3.9 Chloride Cancelled 95 L Carbon Dioxide Cancelled 21.0 Anion Gap Cancelled 13.0 H BUN Cancelled 11 Creatinine Cancelled 0.96 Estimated GFR/1.73 m2 Cancelled >= 60.00 Glucose Cancelled 356 H Hemoglobin A1c Calcium Cancelled 7.6 L Magnesium 2.2 Total Bilirubin 0.6 Conjugated Bilirubin 0.08 AST 22 ALT 36 Alkaline Phosphatase 83 Troponin I NT-Pro-B Natriuret Pep 20 Total Protein 7.2 Albumin 3.6 Triglycerides Total Cholesterol LDL Cholesterol Direct LDL Cholesterol, Calc HDL Cholesterol Lipase 99 TSH 1.31 Urine Color Urine Clarity Urine pH Ur Specific [place] Urine Protein Urine Ketones Urine Blood Urine Nitrite Urine Bilirubin Urine Urobilinogen Ur Leukocyte Esterase Urine RBC Urine WBC Ur Epithelial Cells Urine Crystals Urine Bacteria Urine Casts Urine Mucus Urine Other Ur Culture Indicated? Urine Glucose Salicylates Urine Opiates Screen Urine Methadone Screen Acetaminophen < 2 Ur Barbiturates Screen Ur Tricyclics Screen Ur Amphetamines Screen U Benzodiazepines Scrn Urine Cocaine Screen Ur THC Screen Ethyl Alcohol 132.3 01/30/20 01/30/20 01/30/20 19:00 19:00 19:00 WBC 7.09 RBC 5.05 Hgb 14.8 Hct 42.0 MCV 83.2 MCH 29.3 MCHC 35.2 RDW 12.3 Plt Count 207 MPV 10.5 Immature Gran % 0.3 Neutrophils % 52.6 Lymphocytes % 38.8 Monocytes % 6.3 Eosinophils % 1.3 Basophils % 0.7 Nucleated RBC % 0 Absolute Neutrophils 3.73 Absolute Lymphocytes 2.75 Absolute Monocytes 0.45 Absolute Eosinophils 0.09 Absolute Basophils 0.05 ABG Sample Site ABG pH ABG pCO2 ABG pO2 ABG HCO3 ABG Total CO2 ABG O2 Saturation ABG Base Excess VBG pH 7.38 VBG pCO2 41 VBG pO2 51 VBG HCO3 24 VBG Total CO2 21 L VBG O2 Saturation 86 VBG Base Excess -1 VBG Lactate Oxygen Liter Flow FiO2 Sodium Potassium Chloride Carbon Dioxide Anion Gap BUN Creatinine Estimated GFR/1.73 m2 Glucose Hemoglobin A1c Calcium Magnesium Total Bilirubin Conjugated Bilirubin AST ALT Alkaline Phosphatase Troponin I NT-Pro-B Natriuret Pep Total Protein Albumin Triglycerides Total Cholesterol LDL Cholesterol Direct LDL Cholesterol, Calc HDL Cholesterol Lipase TSH Urine Color Urine Clarity Urine pH Ur Specific [place] Urine Protein Urine Ketones Urine Blood Urine Nitrite Urine Bilirubin Urine Urobilinogen Ur Leukocyte Esterase Urine RBC Urine WBC Ur Epithelial Cells Urine Crystals Urine Bacteria Urine Casts Urine Mucus Urine Other Ur Culture Indicated? Urine Glucose Salicylates < 2.8 Urine Opiates Screen Urine Methadone Screen Acetaminophen Ur Barbiturates Screen Ur Tricyclics Screen Ur Amphetamines Screen U Benzodiazepines Scrn Urine Cocaine Screen Ur THC Screen Ethyl Alcohol 01/30/20 01/30/20 01/30/20 19:00 19:31 19:31 WBC RBC Hgb Hct MCV MCH MCHC RDW Plt Count MPV Immature Gran % Neutrophils % Lymphocytes % Monocytes % Eosinophils % Basophils % Nucleated RBC % Absolute Neutrophils Absolute Lymphocytes Absolute Monocytes Absolute Eosinophils Absolute Basophils ABG Sample Site ABG pH ABG pCO2 ABG pO2 ABG HCO3 ABG Total CO2 ABG O2 Saturation ABG Base Excess VBG pH VBG pCO2 VBG pO2 VBG HCO3 VBG Total CO2 VBG O2 Saturation VBG Base Excess VBG Lactate Oxygen Liter Flow FiO2 Sodium Potassium Chloride Carbon Dioxide Anion Gap BUN Creatinine Estimated GFR/1.73 m2 Glucose Hemoglobin A1c Calcium Magnesium Total Bilirubin Conjugated Bilirubin AST ALT Alkaline Phosphatase Troponin I < 0.05 NT-Pro-B Natriuret Pep Total Protein Albumin Triglycerides Total Cholesterol LDL Cholesterol Direct LDL Cholesterol, Calc HDL Cholesterol Lipase TSH Urine Color Yellow Urine Clarity Clear Urine pH 6.5 Ur Specific [place] 1.010 Urine Protein Trace H Urine Ketones Negative Urine Blood Negative Urine Nitrite Negative Urine Bilirubin Negative Urine Urobilinogen 0.2 Ur Leukocyte Esterase Negative Urine RBC Negative Urine WBC Negative Ur Epithelial Cells Negative Urine Crystals Negative Urine Bacteria Negative Urine Casts Negative Urine Mucus Negative Urine Other Negative Ur Culture Indicated? No Urine Glucose 500 H Salicylates Urine Opiates Screen Negative Urine Methadone Screen Negative Acetaminophen Ur Barbiturates Screen Negative Ur Tricyclics Screen Negative Ur Amphetamines Screen Negative U Benzodiazepines Scrn Negative Urine Cocaine Screen Negative Ur THC Screen Negative Ethyl Alcohol 01/30/20 01/30/20 01/31/20 22:00 22:00 00:05 WBC RBC Hgb Hct MCV MCH MCHC RDW Plt Count MPV Immature Gran % Neutrophils % Lymphocytes % Monocytes % Eosinophils % Basophils % Nucleated RBC % Absolute Neutrophils Absolute Lymphocytes Absolute Monocytes Absolute Eosinophils Absolute Basophils ABG Sample Site Right radial Right radial ABG pH 7.28 L 7.32 L ABG pCO2 48 H 43 ABG pO2 85 137 H ABG HCO3 22 22 ABG Total CO2 20 L 20 L ABG O2 Saturation 96 99 H ABG Base Excess -4 L -4 L VBG pH VBG pCO2 VBG pO2 VBG HCO3 VBG Total CO2 VBG O2 Saturation VBG Base Excess VBG Lactate Oxygen Liter Flow Vt470/peep5/r15 Vt470/r18/peep5 FiO2 40 40 Sodium Potassium Chloride Carbon Dioxide Anion Gap BUN Creatinine Estimated GFR/1.73 m2 Glucose Hemoglobin A1c Calcium Magnesium Total Bilirubin Conjugated Bilirubin AST ALT Alkaline Phosphatase Troponin I < 0.05 NT-Pro-B Natriuret Pep Total Protein Albumin Triglycerides Total Cholesterol LDL Cholesterol Direct LDL Cholesterol, Calc HDL Cholesterol Lipase TSH Urine Color Urine Clarity Urine pH Ur Specific [place] Urine Protein Urine Ketones Urine Blood Urine Nitrite Urine Bilirubin Urine Urobilinogen Ur Leukocyte Esterase Urine RBC Urine WBC Ur Epithelial Cells Urine Crystals Urine Bacteria Urine Casts Urine Mucus Urine Other Ur Culture Indicated? Urine Glucose Salicylates Urine Opiates Screen Urine Methadone Screen Acetaminophen Ur Barbiturates Screen Ur Tricyclics Screen Ur Amphetamines Screen U Benzodiazepines Scrn Urine Cocaine Screen Ur THC Screen Ethyl Alcohol 10/26/20 10/26/20 10/26/20 06:25 06:25 06:25 WBC RBC Hgb Hct MCV MCH MCHC RDW Plt Count MPV Immature Gran % Neutrophils % Lymphocytes % Monocytes % Eosinophils % Basophils % Nucleated RBC % Absolute Neutrophils Absolute Lymphocytes Absolute Monocytes Absolute Eosinophils Absolute Basophils ABG Sample Site ABG pH ABG pCO2 ABG pO2 ABG HCO3 ABG Total CO2 ABG O2 Saturation ABG Base Excess VBG pH VBG pCO2 VBG pO2 VBG HCO3 VBG Total CO2 VBG O2 Saturation VBG Base Excess VBG Lactate 1.7 H Oxygen Liter Flow FiO2 Sodium 132 L Potassium 3.6 Chloride 99 Carbon Dioxide 21.5 Anion Gap 11.5 H BUN 13 Creatinine 0.73 Estimated GFR/1.73 m2 >= 60.00 Glucose 182 H D Hemoglobin A1c Cancelled Calcium 7.9 L Magnesium 2.1 Total Bilirubin 0.4 Conjugated Bilirubin 0.08 AST 21 ALT 26 Alkaline Phosphatase 58 Troponin I < 0.05 NT-Pro-B Natriuret Pep Total Protein 6.3 L Albumin 3.4 Triglycerides 3876 H Total Cholesterol 488 H LDL Cholesterol Direct 113 H LDL Cholesterol, Calc Tnp HDL Cholesterol 29 L Lipase TSH 1.25 Urine Color Urine Clarity Urine pH Ur Specific [place] Urine Protein Urine Ketones Urine Blood Urine Nitrite Urine Bilirubin Urine Urobilinogen Ur Leukocyte Esterase Urine RBC Urine WBC Ur Epithelial Cells Urine Crystals Urine Bacteria Urine Casts Urine Mucus Urine Other Ur Culture Indicated? Urine Glucose Salicylates Urine Opiates Screen Urine Methadone Screen Acetaminophen Ur Barbiturates Screen Ur Tricyclics Screen Ur Amphetamines Screen U Benzodiazepines Scrn Urine Cocaine Screen Ur THC Screen Ethyl Alcohol 01/31/20 01/31/20 06:25 07:40 WBC 11.30 H D RBC 4.54 Hgb 13.6 Hct 38.6 L MCV 85.0 MCH 30.0 MCHC 35.2 RDW 12.8 Plt Count 202 MPV 10.6 Immature Gran % 0.3 Neutrophils % 71.8 Lymphocytes % 20.0 Monocytes % 6.8 Eosinophils % 0.7 Basophils % 0.4 Nucleated RBC % 0 Absolute Neutrophils 8.11 H Absolute Lymphocytes 2.26 Absolute Monocytes 0.77 Absolute Eosinophils 0.08 Absolute Basophils 0.05 ABG Sample Site Left radial ABG pH 7.39 ABG pCO2 43 ABG pO2 74 L ABG HCO3 26 ABG Total CO2 23 ABG O2 Saturation 95 ABG Base Excess 1 VBG pH VBG pCO2 VBG pO2 VBG HCO3 VBG Total CO2 VBG O2 Saturation VBG Base Excess VBG Lactate Oxygen Liter Flow Vt470/r18/peep5 FiO2 30 Sodium Potassium Chloride Carbon Dioxide Anion Gap BUN Creatinine Estimated GFR/1.73 m2 Glucose Hemoglobin A1c Calcium Magnesium Total Bilirubin Conjugated Bilirubin AST ALT Alkaline Phosphatase Troponin I NT-Pro-B Natriuret Pep Total Protein Albumin Triglycerides Total Cholesterol LDL Cholesterol Direct LDL Cholesterol, Calc HDL Cholesterol Lipase TSH Urine Color Urine Clarity Urine pH Ur Specific [place] Urine Protein Urine Ketones Urine Blood Urine Nitrite Urine Bilirubin Urine Urobilinogen Ur Leukocyte Esterase Urine RBC Urine WBC Ur Epithelial Cells Urine Crystals Urine Bacteria Urine Casts Urine Mucus Urine Other Ur Culture Indicated? Urine Glucose Salicylates Urine Opiates Screen Urine Methadone Screen Acetaminophen Ur Barbiturates Screen Ur Tricyclics Screen Ur Amphetamines Screen U Benzodiazepines Scrn Urine Cocaine Screen Ur THC Screen Ethyl Alcohol
[2020-01-31 14:35] LABS: COVID-19 RT-PCR UVMMC Result Negative (Negative)
[2020-01-31] MEDS: Acetaminophen 650 MG SUPP PR (16:19)
[2020-01-31] MEDS: Atorvastatin 40 MG TAB PO (19:59)
[2020-01-31] MEDS: Normal Saline Flush 10 ML SYR IVP ×2 (20:00→23:26)
[2020-01-31] MEDS: Normal Saline 1,000 ML 50 ML IV (21:56)
[2020-02-01] VITALS (62 sets, daily range): BP systolic 111–140; BP diastolic 74–89; PULSE 66–96; RESP 1–32; TEMP 36.8–37.1; O2SAT 89–99
[2020-02-01] MEDS: PIPERACILLIN/TAZO 4.5 GM in Normal Saline 100 ML IVPB ×4 (01:29→20:16)
[2020-02-01] MEDS: LORazepam 1 MG TAB PO/SL ×2 (01:33→06:50)
[2020-02-01] MEDS: Albuterol/Ipratropium 3 ML UPD VIAL UPD (06:13)
[2020-02-01] MEDS: Acetaminophen 325 MG TAB 650 MG PO ×2 (06:24→17:31)
[2020-02-01 06:47] LABS: Abs Immature Grans 0.02 10^3/uL (0.0-0.06); Absolute Basophil Count 0.05 10^3/uL (0.0-0.2); Absolute Eosinophil Count 0.19 10^3/uL (0.0-0.7); Absolute Monocyte Count 0.49 10^3/uL (0.1-0.8); Absolute Neutrophil Count 4.54 10^3/uL (1.2-6.7); Basophils % 0.7; Eosinophils % 2.6; HCT 38.2 % (40.0-50.0); Immature Grans % 0.3; Lymphocytes % 28.4; MCH 29.6 pg (27.0-33.0); MPV 10.8 fL (8.0-11.0); Monocytes % 6.6; Neutrophils % 61.4; Nucleated RBC 0 %; Platelet Count 178 10^3/uL (130-400); RBC 4.39 10^6/uL (4.36-5.78); RDW 12.8 % (11.8-14.1); RDW-SD 40.5 fL; WBC 7.39 10^3/uL (4.4-10.8)
[2020-02-01] MEDS: Insulin Aspart 300 UNITS/3 ML PEN SC ×4 (07:55→21:39)
[2020-02-01 07:56] LABS: ALT 26 U/L (16-63); AST 17 U/L (15-37); Albumin 3.2 g/dL (3.4-5.0); Alkaline Phosphatase 64 U/L (46-116); Anion Gap 6.9 mmol/L (3-11); BUN 15 mg/dL (7-18); Bilirubin, Total 0.7 mg/dL (0.2-1.0); CO2 23.1 mmol/L (21.0-32.0); Calcium 7.6 mg/dL (8.5-10.1); Chloride 104 mmol/L (98-107); Glucose 188 mg/dL (74-106); Potassium 3.5 mmol/L (3.5-5.1); Sodium 134 mmol/L (136-145); Total Protein 6.2 g/dL (6.4-8.2)
[2020-02-01] MEDS: Normal Saline Flush 10 ML SYR IVP ×3 (08:08→17:32)
[2020-02-01 08:33] LABS: Estimated Average Glucose 312 mg/dL; Hemoglobin A1C 12.5 % (<5.7)
--- NOTE | 2020-02-01 08:36 | CMPROGNOTE_ITS ---
Care Management Progress Note S/O: Per , Bryan will be transferred to M/S, and monitored for alcohol withdrawal. He is on room air and continues to be treated for aspiration pneumonia. CM paged [employer] to connect Bryan with services; he declined support. He reports he is 100% service connected. Libby Mason CM at the [facility] reports Bryan's PCP is Dr. Gutierrez at [facility], he also sees Izaiah Valenzuela for addiction services supports and is followed by . Libby reported the [facility] would be willing to consider Bryan in transfer. reports Bryan is not scoring high on CIWA and will likely discharge back to the community tomorrow; not requiring acute transfer. CM continues to follow. A: 59 year old male admitted to [facility] 01/30/20 for Chest pain, LOC, Aspiration Pneumonia P: Bryan will return home when ready per . [facility] will [facility] with [facility]; DC summary to [facility] to the [facility] upon discharge. CM continues to follow.
[2020-02-01] MEDS: Folic Acid 1 MG TAB PO (09:30)
[2020-02-01] MEDS: Enoxaparin 40 MG/0.4 ML SYR SC (09:30)
[2020-02-01] MEDS: Fenofibrate, Micronized 145 MG TAB PO (09:30)
[2020-02-01] MEDS: Multivitamin TAB 1 TAB PO (09:31)
[2020-02-01] MEDS: Thiamine 100 MG TAB PO (09:32)
[2020-02-01] MEDS: Aspirin 81 MG CHEW PO (09:32)
--- NOTE | 2020-02-01 10:37 | PHA.REVIEW ---
Pharmacy Admission Review - Admission Clinical Review (Last Updated 01/30/20 @ 23:42 by Poly Briceno MD) Hyponatremia (Acute) Mixed hyperlipidemia (Acute) On mechanically assisted ventilation (Acute) Aspiration pneumonia (Acute) Discharge planning issues (Acute) DVT prophylaxis (Acute) LOC (loss of consciousness) (Acute) Chest pain (Acute) Unresponsive (Acute) Alcohol intoxication (Acute) Encounter for intubation (Acute) No Known Allergies Allergy (Unverified 06/09/15 22:23) Height 6 ft Weight 93.4 kg - Renal Dosing Renal Dosing: BUN 15 mg/dL (7-18) 02/01/20 06:06 Creatinine 1.00 mg/dL (0.70-1.30) 02/01/20 06:06 Medications needing adjustments: Reviewed (Crcl ~89 mL/min current meds okay) - Anticoagulation Anticoagulation: Hgb 13.0 g/dL (13.5-17.5) L 02/01/20 06:06 Hct 38.2 % (40.0-50.0) L 02/01/20 06:06 Plt Count 178 10^3/uL (130-400) 02/01/20 06:06 Creatinine 1.00 mg/dL (0.70-1.30) 02/01/20 06:06 DVT Prohphylaxis: Reviewed Medications: Enoxaparin Therapeutic Anticoagulation: N/A - Opiate Usage Evaluate Pain Scale/Pains Meds: Intervened (fentanyl drip still ordered, no longer intubated, will talk to provider) Scheduled Bowel Reg ordered if on Opiates?: No - Relevant Labs Sodium 134 mmol/L (136-145) L 02/01/20 06:06 Potassium 3.5 mmol/L (3.5-5.1) 02/01/20 06:06 Chloride 104 mmol/L (98-107) 02/01/20 06:06 Magnesium 2.1 mg/dL (1.8-2.4) 01/31/20 06:25 Electrolytes, C-Reactive P, ESR: Reviewed - DM Control DM Control: Glucose 188 mg/dL (74-106) H 02/01/20 06:06 Hemoglobin A1c 12.5 % (<5.7) H 01/31/20 06:25 Hemoglobin A1c Cancelled 01/31/20 06:25 Finger Stick Blood Glucose 168 Finger Stick Blood Glucose 168 Insulin Dosing: Reviewed (sliding scale aspart ordered) - Heart Failure/SD Heart Failure/SD: Troponin I < 0.05 ng/mL (<0.06) 01/31/20 06:25 NT-Pro-B Natriuret Pep 20 pg/mL (<300) 01/30/20 19:00 EF%, ANNA's, B-Blockers, Diuretics: Reviewed - BP Control BP Control: Blood Pressure [Right Arm] 140/89 Blood Pressure 140/88 Blood Pressure 127/81 Blood Pressure 119/79 Blood Pressure 111/83 Blood Pressure 112/78 If elevated: N/A - Qtc Review If Elevated: N/A (QTc 445) - IV to PO Switch IV Medications: Intervened (Talked to provider about changing pantoprazole from IV to PO as pt is taking other PO meds.) - Home Meds Home Med List reviewed: Reviewed (Paroxetine may enhance the antiplatelet effect of ibuprofen; ibuprofen may diminish the therapeutic effect of paroxetine. Consider alternatives to NSAIDs, monitor.) Relevent Home Meds Not ordered & why?: cyclobenzaprine (PRN), ibuprofen (PRN), metformin (on hold, has sliding scale aspart ordered), mirtazapine, paroxetine - Current meds Current Medication Order Review: Intervened (Talked to provider as pt still had active orders for fentanyl drip, midazolam drip and propofol infusion yet pt was extubated yesterday. Okay by provider to discontinue these.) - Comments Comments/Follow Ups: Watch VS, BG, labs and for med changes (possible restart home meds?) Antibiotic Activity - Pharmacy Antibiotic Review Pharmacy Antibiotic Activity: Reviewed, no change (Zosyn to cover for aspiration pneumonia.)
--- NOTE | 2020-02-01 11:40 | W.PM.PROGNOT ---
Date of Service Date of service: 02/01/20 Time of Service: 11:40 Assessment and Plan Assessment and plan (1) Non-insulin dependent type 2 diabetes mellitus: Status: Chronic Assessment and plan: A1c of 12.5 On SS insulin; controlled. Diabetic education ordered. Begin glipizide now, metformin at time of d/c. Diabetic diet. (2) Hypertension: Status: Chronic Assessment and plan: Controlled No current antihypertensives. Qualifiers: Hypertension type: essential hypertension Qualified Code(s): I10 - Essential (primary) hypertension (3) Aspiration pneumonia: Status: Acute Assessment and plan: Cont Zosyn today. WBC count normal Change to po antibiotic tomorrow. Transfer to Med-Surg status Qualifiers: Laterality: left Lung location: lower lobe of lung (4) LOC (loss of consciousness): Status: Acute Assessment and plan: Unknown etiology. On telemetry; no arrythmia noted. (5) Alcohol intoxication: Status: Acute Assessment and plan: He states he doesn't drink regularly / daily. Was drinking at a bar at time of episode of CP then LOC. Encourage cessation. (6) Mixed hyperlipidemia: Status: Acute Assessment and plan: Initiated Atorvastatin and Tricor this admission Will need repeat lab as outpt. Subjective Subjective Patient reports: no new complaints, feels better and afebrile; denies nausea, vomiting and shortness of breath Exam Const General: cooperative and no acute distress Nutritional Appearance: average body habitus Orientation: alert, oriented to person and oriented to place Resp Effort & Inspection: normal respiratory effort Auscultation: clear to auscultation bilaterally and diminished lung sounds Cardio Jugular venous pressure: no JVD Rate: regular rate Rhythm: regular rhythm Heart Sounds: S1 normal and S2 normal GI Palpation: soft and nontender Auscultation: normal bowel sounds Extrem General: no pedal edema and no calf tenderness Objective Last Vital Signs Temp 36.8 C 02/01/20 08:12 Pulse 81 02/01/20 07:59 Resp 21 02/01/20 07:59 BP 140/89 02/01/20 07:59 Pulse Ox 96 02/01/20 07:59 Laboratory Results - last 24 hr 01/30/20 01/31/20 02/01/20 20:22 06:25 06:06 WBC RBC Hgb Hct MCV MCH MCHC RDW Plt Count MPV Immature Gran % Neutrophils % Lymphocytes % Monocytes % Eosinophils % Basophils % Nucleated RBC % Absolute Neutrophils Absolute Lymphocytes Absolute Monocytes Absolute Eosinophils Absolute Basophils Sodium 134 L Potassium 3.5 Chloride 104 Carbon Dioxide 23.1 Anion Gap 6.9 BUN 15 Creatinine 1.00 Estimated GFR/1.73 m2 >= 60.[address] Glu mg/dL 312 Hemoglobin A1c 12.5 H Calcium 7.6 L Total Bilirubin 0.7 AST 17 ALT 26 Alkaline Phosphatase 64 Total Protein 6.2 L Albumin 3.2 L COVID-19 PCR Negative Nasopharyn COVID-19 PCR Not Applicable [facility] 06:06 WBC 7.39 D RBC 4.39 Hgb 13.0 L Hct 38.2 L MCV 87.0 MCH 29.6 MCHC 34.0 RDW 12.8 Plt Count 178 MPV 10.8 Immature Gran % 0.3 Neutrophils % 61.4 Lymphocytes % 28.4 Monocytes % 6.6 Eosinophils % 2.6 Basophils % 0.7 Nucleated RBC % 0 Absolute Neutrophils 4.54 Absolute Lymphocytes 2.10 Absolute Monocytes 0.49 Absolute Eosinophils 0.19 Absolute Basophils 0.05 Sodium Potassium Chloride Carbon Dioxide Anion Gap BUN Creatinine Estimated GFR/1.[address] Glu mg/dL Hemoglobin A1c Calcium Total Bilirubin AST ALT Alkaline Phosphatase Total Protein Albumin COVID-19 PCR Nasopharyn COVID-19 PCR Ref Test Perform Site
--- NOTE | 2020-02-01 12:16 | NUR.NOTE ---
RN sends SNPP request to have MD write order to dc marrero catheter.Nursing Note:
--- NOTE | 2020-02-01 12:29 | W.NUTRFU ---
Date of service: 02/01/20 Time of Service: 12:29 Nutritional Follow up NOTE: 59 year old male admitted with alcohol intoxication, LOC requiring intubation. Currently extubated and to be moved out of ICU. Hx of CAD s/p NC, Dm2, HTN, hyperlipidemia, TBI and ETOH dependence. BMI wnl for age. Meds include MVI, thiamin, folic acid for repletion. A1C of 12.5% indicates hx of poorly controlled DM2. [employer] Consult pending. Following diabetic diet with excellent intake. Time Spent in Nutritional Counseling and Treatment: 0 time spent face to face
--- NOTE | 2020-02-01 13:53 | NUR.NOTE ---
Patient returns to bed after walking the full loop. Patient is more communicative.Nursing Note:
[2020-02-01] MEDS: Normal Saline 1,000 ML 50 ML IV (18:28)
[2020-02-01] MEDS: Atorvastatin 40 MG TAB PO (20:16)
[2020-02-01] MEDS: PARoxetine 20 MG TAB 80 MG PO (21:32)
[2020-02-01] MEDS: Mirtazapine 15 MG TAB 60 MG PO (21:32)
[2020-02-02] VITALS: PULSE 81
[2020-02-02] MEDS: PIPERACILLIN/TAZO 4.5 GM in Normal Saline 100 ML IVPB ×2 (02:13→08:01)
[2020-02-02] MEDS: glipiZIDE 5 MG TAB PO (06:35)
[2020-02-02] MEDS: Pantoprazole 40 MG TABCR PO (06:35)
[2020-02-02 07:08] LABS: Abs Immature Grans 0.02 10^3/uL (0.0-0.06); Absolute Basophil Count 0.06 10^3/uL (0.0-0.2); Absolute Eosinophil Count 0.24 10^3/uL (0.0-0.7); Absolute Lymphocyte Count 1.87 10^3/uL (1.2-3.4); Absolute Monocyte Count 0.49 10^3/uL (0.1-0.8); Absolute Neutrophil Count 3.75 10^3/uL (1.2-6.7); Basophils % 0.9; Eosinophils % 3.7; HCT 40.1 % (40.0-50.0); HGB 14.3 g/dL (13.5-17.5); Immature Grans % 0.3; Lymphocytes % 29.1; MCH 30.2 pg (27.0-33.0); MCHC 35.7 % (32.0-36.0); MCV 84.8 fL (80-95); MPV 10.5 fL (8.0-11.0); Monocytes % 7.6; Neutrophils % 58.4; Nucleated RBC 0 %; Platelet Count 193 10^3/uL (130-400); RBC 4.73 10^6/uL (4.36-5.78); RDW 12.6 % (11.8-14.1); RDW-SD 38.5 fL; WBC 6.43 10^3/uL (4.4-10.8)
[2020-02-02 07:52] VITALS: BP 149/86; PULSE 72; RESP 20; TEMP 37; O2SAT 94
[2020-02-02] MEDS: Insulin Aspart 300 UNITS/3 ML PEN SC (08:00)
[2020-02-02] MEDS: Enoxaparin 40 MG/0.4 ML SYR SC (08:00)
[2020-02-02] MEDS: Thiamine 100 MG TAB PO (08:01)
[2020-02-02] MEDS: Fenofibrate, Micronized 145 MG TAB PO (08:01)
[2020-02-02] MEDS: Aspirin 81 MG CHEW PO (08:02)
[2020-02-02] MEDS: Multivitamin TAB 1 TAB PO (08:02)
[2020-02-02] MEDS: Folic Acid 1 MG TAB PO (08:02)
--- NOTE | 2020-02-02 09:40 | DSE_ITS ---
Date of service: 02/02/20 Time of Service: 09:40 DS: Diagnosis Discharge Diagnosis (1) Non-insulin dependent type 2 diabetes mellitus: Status: Chronic (2) Hypertension: Status: Chronic (3) Aspiration pneumonia: Status: Acute (4) LOC (loss of consciousness): Status: Acute (5) Alcohol intoxication: Status: Acute (6) Mixed hyperlipidemia: Status: Acute Discharge Plan Disposition Patient Disposition: HOME Condition: Fair Discharge Details Reason For Visit: CHEST PAIN, LOC, ASPIRATION PNEUMONIA Admit Date/Time: 01/30/20 22:49 Admit Provider: Poly Briceno Attending Provider: Poly Briceno [facility] Care Provider[facility] Hospital Course Hospital Course: Mr Deleon is a 59 year old male with PMHx of CAD s/p RI, NIDDM2, hypertension, hyperlipidemia, Alcohol dependence, CORDELIA (?on CPAP), TBI, who, per ED provider report, was drinking at [employer] when he reported chest pain, for which he took nitroglycerin (unclear if it was his or someone else's). He then collapsed to the ground and became unresponsive; remained so at the time of EMS evaluation and remained so during transfer to [facility] ED. Here, his GCS was 3 and he was felt to not be able to protect his airway. He was intubated, using rocuronium and propofol. His workup in the ED revealed what appears to be aspiration pneumonia, but was otherwise negative. [place] transfer was sought, but declined due to lack of beds/resources. Hospitalists were asked to take over care. The following AM he was extubated w/o difficulty. He then was weaned readily to room air. Of note, he had an elevated hemoglobin A1c of 12.5. He takes metformin at home and could not tell me what a previous A1c reading was. Sliding scale insulin utilized. Glipizide initiated. His triglycerides were markedly elevated at 3876, total cholesterol at 488 and LDL of 113. HDL 29. Tricor and Atorvastatin initiated. He had no respiratory complaints of cough/sputum, SOA during the course of the remaining hospitalization. He will dc on a course of Augmentin. Follow up with PCP n 1-2 weeks for monitoring of DM2, lipids and respiratory status. He does indicate that he has, for a fairly longstanding period of time, tend to list to the R at times with ambulation. CT head during his ED evaluation was negative for any acute findings. I encouraged him to discuss this further with his PCP and possibly obtain a referral to neurology. Home Meds and New Rx's Prescriptions: New multivitamin [Multiple Vitamins] Tablet 1 tab PO DAILY Qty: 0 RF: 0 atorvastatin [Lipitor] 40 mg Tablet 40 mg PO QPM Qty: 30 RF: 0 aspirin 81 mg Tablet,Chewable 81 mg PO DAILY Qty: 0 RF: 0 glipizide 5 mg Tablet 5 mg PO DAILY@0730 Qty: 30 RF: 0 amoxicillin-pot clavulanate 875-125 mg Tablet 1 tab PO BID Qty: 10 RF: 0 fenofibrate nanocrystallized [Tricor] 145 mg Tablet 145 mg PO DAILY Qty: 30 RF: 0 thiamine mononitrate (vit B1) [Vitamin B-1 (mononitrate)] 100 mg Tablet 100 mg PO DAILY Qty: 0 RF: 0 Continued cyclobenzaprine 10 mg Tablet 10 mg PO BID PRN (Reason: Muscle Spasm) RF: 0 ibuprofen 800 mg Tablet 800 mg PO TID PRN PRN (Reason: pain) RF: 0 mirtazapine 30 mg Tablet 60 mg PO HS RF: 0 metformin 1,000 mg Tablet 1,000 mg PO BID AC RF: 0 paroxetine HCl 40 mg Tablet 80 mg PO HS RF: 0 Discharge Instructions Instructions: Aspiration Pneumonia (GEN) Additional Instructions: PLEASE FOLLOW UP WITH YOUR PRIMARY CARE PROVIDER AT THE [place] WITHIN TWO WEEKS Stand Alone Forms: Nursing Discharge Form Activity:: Activity as Tolerated Equipment/Supplies:: No Equipment Needed Diet:: heart healthy Discharge Orders Discharge Orders: Discharge Order (Routine); Ordered 02/02/20 Ordered By: Josh Kimbrough Discharge Data Discharge Date/Time-TO BE ENTERED AT DEPARTURE: 02/02/20 11:45 DS: Summary Status at Discharge Functional status at discharge: independent ambulation Overall status at discharge: patient is progressing back to baseline Mental Status: mental status grossly normal Speech and Movement: speech clear Mood: congruent mood Affect: normal affect Exam Const General: cooperative and no acute distress Nutritional Appearance: average body habitus Orientation: oriented to person and oriented to place Eyes Sclera: sclerae normal Pupils: PERRL EOM: EOM intact bilaterally Resp Effort & Inspection: normal respiratory effort Auscultation: clear to auscultation bilaterally GI Palpation: soft and nontender Auscultation: normal bowel sounds Skin General skin exam: no rashes or lesions noted Neuro General: patient alert, patient oriented x3, moves all extremities and no focal motor deficits Speech: speech normal Extrem General: no pedal edema and no calf tenderness Psych Appearance: grossly normal Mental Status: mental status grossly normal Speech and Movement: speech clear Mood: congruent mood Affect: normal affect Attitude: cooperative DS: Data Vitals/I&O Vitals and I&O: Vital Signs Temperature 37.0 C 02/02/20 07:52 Temperature Source Tympanic 02/02/20 07:52 Pulse 72 02/02/20 07:52 Pulse Rhythm Regular 02/02/20 06:11 Pulse 81 02/02/20 00:00 Respiratory Rate 20 02/02/20 07:52 Respiratory Effort Non-Labored 02/02/20 06:11 Respiratory Depth Normal 02/02/20 06:11 Respiratory Pattern Normal 02/02/20 06:11 Blood Pressure 149/86 H 02/02/20 07:52 Blood Pressure Mean 92 02/01/20 18:01 Blood Pressure Position Supine 02/01/20 16:14 Pulse Oximetry 94 02/02/20 07:52 Respiratory End-tidal CO2 30 01/31/20 11:01 Oxygen Delivery Method Room Air 02/02/20 07:52 Oxygen Flow Rate 0 02/02/20 07:52 Fraction of Inspired Oxygen (FIO2) 21 02/01/20 15:15 End Tidal Co2 46 01/30/20 20:32 Pain Level 7 02/01/20 20:12 Comment 01/31/20 06:30 Intake & Output 02/01/20 02/01/20 02/02/20 11:59 23:59 11:59 Intake Total 680 / 3040 2360 / 3040 100 / 100 Output Total 625 / 4200 3575 / 4200 700 / 700 Balance 55 / -1160 -1215 / -1160 -600 / -600 Weight 93.4 kg 91.8 kg Intake: IV 200 / 1420 1220 / 1420 100 / 100 Oral 480 / 1620 1140 / 1620 Output: Urine 625 / 4200 3575 / 4200 700 / 700 Other: Urine Color Light Laurie Pale Pale Yellow Yellow Urine Appearance Clear Clear Clear Urine Odor Normal Normal Comment Camejo in place 2 voids [id number] Voiding Methods Urinal Urinal Data Completed and Pending Labs on day of discharge: Labs from last 24 hours 02/02/20 02/02/20 02/01/20 06:50 05:35 05:35 WBC 6.43 RBC 4.73 Hgb 14.3 Hct 40.1 MCV 84.8 MCH 30.2 MCHC 35.7 RDW 12.6 Plt Count 193 MPV 10.5 Immature Gran % 0.3 Neutrophils % 58.4 Lymphocytes % 29.1 Monocytes % 7.6 Eosinophils % 3.7 Basophils % 0.9 Nucleated RBC % 0 Absolute Neutrophils 3.75 Absolute Lymphocytes 1.87 Absolute Monocytes 0.49 Absolute Eosinophils 0.24 Absolute Basophils 0.06 ABG Sample Site Cancelled Cancelled ABG pH Cancelled Cancelled ABG pCO2 Cancelled Cancelled ABG pO2 Cancelled Cancelled ABG HCO3 Cancelled Cancelled ABG Total CO2 Cancelled Cancelled ABG O2 Saturation Cancelled Cancelled ABG Base Excess Cancelled Cancelled Oxygen Liter Flow Cancelled Cancelled FiO2 Cancelled Cancelled [facility] Medical History Alcohol dependence CAD (coronary artery disease) Cervical radiculopathy due to degenerative joint disease of spine Hyperlipidemia Hypertension Impulse control disorder Internal thrombosed hemorrhoids Late effects of self-inflicted injury Major depressive disorder, recurrent, unspecified Migraines [facility], during his early 30s Neck pain Non-insulin dependent type 2 diabetes mellitus Obstructive sleep apnea OCD (obsessive compulsive disorder) Polysubstance abuse PTSD (post-traumatic stress disorder) Rectal bleeding Rosacea Sleep disturbance TBI (traumatic brain injury) Surgical History Status post cervical discectomy Family History Other Family history unobtainable due to patient's condition Social History Smoking/Tobacco Use Status: Never Smoking risk assessment performed?: Yes Alcohol Intake: current Drug use: Never
--- NOTE | 2020-02-02 18:22 | PDOC.CMDIS ---
- If Service Date Differs Date of service: 02/02/20 Time of Service: 18:23 LACE Index Scoring Tool - Questions: Length of Stay (in days): 4 - 6 Acuity (Admit via E.D.?): Yes E.D. Visits: 1 - Answers: Total Score: 8 Risk of Readmission: Low Risk Care Management Discharge Reason for Hospitalization: Chest Pain, LOC, Aspiration Pneumonia Discharge Plan: Bryan will return home today with no additional services. He was sent home with 5 days of meds, as [facility]. [facility]. He refused to be connected to a asset recovery specialist. His sister drove him home via private vehicle. Patient/Family Education Needs: Review discharge instructions regarding activity levels and medications, discussion of self care needs including ask me three.
== END 2020-02-02 11:45 | disposition home or self-care (01) | DRG 208 ==
LOC: ER 23:01 → ICU 01-31 08:59 → MS 02-01 18:23
PROVIDERS: Emergency Medicine; Family Medicine; Admitting Provider Internal Medicine; Emergency Provider Student in an Organized Health Care Education/Training Program; Visit Provider Internal Medicine
DX: J69.0 Pneumonitis due to inhalation of food and vomit (principal); F33.9 Major depressive disorder, recurrent, unspecified; E87.1 Hypo-osmolality and hyponatremia; R40.2432 Glasgow coma scale score 3-8, at arrival to emergency department; R07.89 Other chest pain; F10.10 Alcohol abuse, uncomplicated; E11.9 Type 2 diabetes mellitus without complications; I25.10 Atherosclerotic heart disease of native coronary artery without angina pectoris; I25.2 Old myocardial infarction; Z11.59 Encounter for screening for other viral diseases; I10 Essential (primary) hypertension; G47.33 Obstructive sleep apnea (adult) (pediatric); F42.9 Obsessive-compulsive disorder, unspecified; F43.10 Post-traumatic stress disorder, unspecified; Z87.820 Personal history of traumatic brain injury; E78.2 Mixed hyperlipidemia
CPT/HCPCS: 31500; 36415; 74177; 80048; 80053; 80061; 80076; 80307; 82805; 83690; 83721; 93005; 96365; 96366; 96367; 96368; 96375; 99232; 99233; 99239; 99291; J1650; U0003; 36600; 70450; 71045; 72125; 80320; 80329; 81003; 81015; 82248; 83036; 83605; 83735; 83880; 84443; 84484; 85025; 93010; 93306; 94002; 94640; 94667; J0610; J2543; J3010; J3490; J7620

== ENCOUNTER 2020-11-08 21:28 | Emergency (ER) | payer OTHER, SELFPAY ==
--- NOTE | 2020-11-08 21:15 | RT.EKG_ITS ---
APPROVED REPORT Exam: Resting ECG Reason for Exam: [facility] Patient Location: E HR:95 bpm ECG Measurements Heart Rate 95 AXIS ND 139 P 54 QRSd 95 QRS -11 QT 352 T 44 QTc 444 Conclusion Sinus rhythm...normal P axis, V-rate 60- 99
[2020-11-08 21:30] VITALS: BP 154/100; PULSE 94; RESP 20; TEMP 37.1; O2SAT 94
--- NOTE | 2020-11-08 21:30 | DI.RAD_ITS ---
Exam(s) XR CHEST 2V PA LATERAL EXAM: XR CHEST 2V PA LATERAL CLINICAL HISTORY: unresponsive. TECHNIQUE: 2D digital imaging was performed. COMPARISON: CR XR PORTABLE CHEST AP from 01/31/2020 FINDINGS: Lungs are underinflated. This probably accounts for the increased markings in the lung bases. Heart size is normal. The mediastinum is not widened. Mid upper lung cruz appear unremarkable. There are no pleural effusions. No pneumothorax. IMPRESSION: No acute pulmonary findings.Some increased markings in both lung bases noted but this may be related to the poor inspiratory effort, more so than actual pathology. Recommend nonportable upright PA and lateral views when clinically possible. DATA REPOSITORY: RADIATION DOSE DELIVERED:
--- NOTE | 2020-11-08 21:30 | DI.CT_ITS ---
Exam(s) CT HEAD CERVICAL SPINE WO EXAM: CT HEAD CERVICAL SPINE WO CLINICAL HISTORY: altered mentation. TECHNIQUE: Imaging Protocol: Axial computed tomography images with coronal and sagittal reformatted images were created and reviewed COMPARISON: CT CT HEAD CERVICAL SPINE WO from 01/30/2020 FINDINGS: BRAIN: There are no skull fractures nor fluid in the visualized paranasal sinuses. There is no evidence of intracranial hemorrhage, mass effect, or shift of midline structures. There are no extra-axial fluid collections. The ventricles are not enlarged or shifted and there is no blo od within the ventricular system nor within the basal cisterns. CERVICAL SPINE: There is an anterior fusion plate across see 5-6 level. This appears intact and there is fusion thes e levels. Some disc space narrowing noted 1 level above and below the fusion. No fractures. No lis thesis. There is no evidence of fracture nor listhesis. No significant prevertebral soft tissue swelling. There is no significant facet joint malalignment. No significant osseous lesions evident. IMPRESSION: No acute intracranial findings on this noninfused CT scan of the brain. No evidence of cervical spine fracture, malalignment, nor acute compromise of the cervical spinal can al. Intact C5-6 fusion plate. RADIATION DOSE DELIVERED: 1,599.39mGy.cm Total DLP DATA REPOSITORY: All CT scans at this facility are submitted to the National Radiology Data Registry (NRDR) Dose Index Registry (DIR) with the [employer] (A[employer]). RADIATION OPTIMIZATION: All CT scans at this facility use at least one of these dose optimization te chniques: automated exposure control; mA and/or kV adjustment per patient size (includes targeted exa ms where dose is matched to clinical indication); or iterative reconstruction.
[2020-11-08 21:55] LABS: Abs Immature Grans 0.02 10^3/uL (0.0-0.06); Absolute Basophil Count 0.08 10^3/uL (0.0-0.2); Absolute Eosinophil Count 0.12 10^3/uL (0.0-0.7); Absolute Lymphocyte Count 3.54 10^3/uL (1.2-3.4); Absolute Monocyte Count 0.55 10^3/uL (0.1-0.8); Absolute Neutrophil Count 3.31 10^3/uL (1.2-6.7); Eosinophils % 1.6; HCT 42.4 % (40.0-50.0); HGB 15.2 g/dL (13.5-17.5); Immature Grans % 0.3; Lymphocytes % 46.5; MCH 29.4 pg (27.0-33.0); MCHC 35.8 % (32.0-36.0); MPV 10.3 fL (8.0-11.0); Monocytes % 7.2; Neutrophils % 43.4; Nucleated RBC 0 %; Platelet Count 225 10^3/uL (130-400); RBC 5.17 10^6/uL (4.36-5.78); RDW 12.2 % (11.8-14.1); RDW-SD 36.8 fL; WBC 7.62 10^3/uL (4.4-10.8)
[2020-11-08 22:23] LABS: Acetaminophen < 2 ug/mL (10-30); Salicylate < 2.8 mg/dL (<2.8)
[2020-11-08 22:37] LABS: Albumin 3.8 g/dL (3.4-5.0); Alkaline Phosphatase 81 U/L (46-116); Anion Gap 17.3 mmol/L (3-11); BUN 19 mg/dL (7-18); Bilirubin, Total 0.6 mg/dL (0.2-1.0); CO2 18.7 mmol/L (21.0-32.0); Calcium 7.7 mg/dL (8.5-10.1); Chloride 94 mmol/L (98-107); ETHANOL BLOOD 143.1 mg/dL (<3); Sodium 130 mmol/L (136-145)
--- NOTE | 2020-11-08 22:44 | NUR.NOTE ---
pt seen in bed appears to be sleeping, no signs of pain or distress, will continue to monitor and maintain safety
--- NOTE | 2020-11-08 23:02 | W.ED.GENAD ---
Discharge Plan Discharge Details Chief Complaint: ETOHWithdr Clinical Impression: Episode of unresponsiveness Primary Care Provider: Lisa,Local ED Provider: Ulices Núñez Home Meds and New Rx's Prescriptions: No Action cyclobenzaprine 10 mg Tablet 10 mg PO BID PRN (Reason: Muscle Spasm) RF: 0 ibuprofen 800 mg Tablet 800 mg PO TID PRN PRN (Reason: pain) RF: 0 mirtazapine 30 mg Tablet 60 mg PO HS RF: 0 metformin 1,000 mg Tablet 1,000 mg PO BID AC RF: 0 paroxetine HCl 40 mg Tablet 80 mg PO HS RF: 0 multivitamin [Multiple Vitamins] Tablet 1 tab PO DAILY Qty: 0 RF: 0 atorvastatin [Lipitor] 40 mg Tablet 40 mg PO QPM Qty: 30 RF: 0 aspirin 81 mg Tablet,Chewable 81 mg PO DAILY Qty: 0 RF: 0 glipizide 5 mg Tablet 5 mg PO DAILY@0730 Qty: 30 RF: 0 amoxicillin-pot clavulanate 875-125 mg Tablet 1 tab PO BID Qty: 10 RF: 0 fenofibrate nanocrystallized [Tricor] 145 mg Tablet 145 mg PO DAILY Qty: 30 RF: 0 thiamine mononitrate (vit B1) [Vitamin B-1 (mononitrate)] 100 mg Tablet 100 mg PO DAILY Qty: 0 RF: 0 Medical Decision Making -- 60-year-old male here after unresponsive episode, unresponsive on arrival. No observed seizure activity. No incontinence. Patient does demonstrate some volitional movement. Consider acute life-threatening intracranial traumatic hemorrhage and C-spine fracture, plan to obtain CT of the head and cervical spine. --CT of the head was interpreted by radiology: No acute intracranial abnormality. CT of the cervical spine was interpreted by radiology: Negative for cervical spine fracture. Labs reviewed and nondiagnostic. Patient became more alert and more active. He was observed scratching his forehead when no one was in the room and then when someone entered he would stop doing volitional movement. --Patient eloped from the emergency department. He was able to get up and get fully dressed and ambulate without any difficulty out of the ED. As he was briskly leaving he stated that he clearly stated that he just wanted to go home. Patient would not stop when staff and I attempted to assist him. Diagnosis: Unresponsive episode Disposition: eloped Medical Records Medical records reviewed: Yes I reviewed the patient's medical records. HPI General Mode of arrival: ambulatory. Date/Time Provider Initiated Documentation: 11/08/20 21:29. Limitations to Documentation: no limitations. Information obtained by: patient. HPI Narrative: 60-year-old male with multiple medical problems presents after collapsing at a bar. Currently patient became unconscious and was helped to the ground by friends. EMS were called and found the patient unresponsive. Apparently patient had similar presentation in 01/2020. He was altered and intubated to protect his airway, extubated the following day had unremarkable hospital course. Unclear etiology for prior syncope. History and review of systems limited secondary to altered mental status. Related Data Home Medications Medication Instructions Recorded Confirmed cyclobenzaprine 10 mg PO BID PRN 01/30/20 01/30/20 ibuprofen 800 mg PO TID PRN PRN 01/30/20 01/30/20 metformin 1,000 mg PO BID AC 01/30/20 01/30/20 mirtazapine 60 mg PO HS 01/30/20 01/30/20 paroxetine HCl 80 mg PO HS 01/30/20 01/30/20 amoxicillin-pot clavulanate 1 tab PO BID #10 tab 02/02/20 aspirin 81 mg PO DAILY #0 tab 02/02/20 atorvastatin [Lipitor] 40 mg PO QPM #30 tab 02/02/20 fenofibrate nanocrystallized 145 mg PO DAILY #30 tab 02/02/20 [Tricor] glipizide 5 mg PO DAILY@0730 #30 tab 02/02/20 multivitamin [Multiple Vitamins] 1 tab PO DAILY #0 tab 02/02/20 thiamine mononitrate (vit B1) 100 mg PO DAILY #0 tab 02/02/20 [Vitamin B-1 (mononitrate)] Previous Rx's Medication Instructions Recorded amoxicillin-pot clavulanate 1 tab PO BID #10 tab 02/02/20 aspirin 81 mg PO DAILY #0 tab 02/02/20 atorvastatin [Lipitor] 40 mg PO QPM #30 tab 02/02/20 fenofibrate nanocrystallized 145 mg PO DAILY #30 tab 02/02/20 [Tricor] glipizide 5 mg PO DAILY@0730 #30 tab 02/02/20 multivitamin [Multiple Vitamins] 1 tab PO DAILY #0 tab 02/02/20 thiamine mononitrate (vit B1) 100 mg PO DAILY #0 tab 02/02/20 [Vitamin B-1 (mononitrate)] Allergies Allergy/AdvReac Type Severity Reaction Status Date / Time No Known Allergies Allergy Unverified 06/09/15 22:23 General Stated Complaint: ETOHWithdr BOB: 2 Review of Systems Unobtainable due to mental status [facility] Medical History Alcohol dependence CAD (coronary artery disease) Cervical radiculopathy due to degenerative joint disease of spine Hyperlipidemia Hypertension Impulse control disorder Internal thrombosed hemorrhoids Late effects of self-inflicted injury Major depressive disorder, recurrent, unspecified Migraines Myocardial infarction per [place] records, during his early 30s Neck pain Non-insulin dependent type 2 diabetes mellitus Obstructive sleep apnea OCD (obsessive compulsive disorder) Polysubstance abuse PTSD (post-traumatic stress disorder) Rectal bleeding Rosacea Sleep disturbance TBI (traumatic brain injury) Surgical History Status post cervical discectomy Family History Other Family history unobtainable due to patient's condition Social History Smoking/Tobacco Use Status: Never Smoking risk assessment performed?: Yes Alcohol Intake: current Drug use: Never Exam Const General: no acute distress HENMT Head: normocephalic and atraumatic Mouth: moist mucous membranes Eyes Conjunctivae: normal conjunctivae Sclera: normal sclerae Pupils: PERRL Neck Neck: trachea midline and supple Resp Auscultation: clear to auscultation bilaterally, no rales, no rhonchi and no wheezes Cardio Rate: regular rate and not tachycardic Rhythm: regular rhythm GI Palpation: soft, not firm, no guarding, no masses, not rigid and nontender Skin General skin exam: no rashes or lesions noted Neuro General: patient obtunded Other: Patient does have voluntary movements to guard his face on confrontation Extrem General: no edema Psych Appearance: grossly normal Course Vital Signs Vital signs: Vital Signs Temperature 37.1 C 11/08/20 21:30 Pulse 94 H 11/08/20 21:30 Respiratory Rate 20 11/08/20 21:30 Blood Pressure 154/100 H 11/08/20 21:30 Pulse Oximetry 94 11/08/20 21:30 Temperature 37.1 C 11/08/20 21:30 Temperature Source Temporal Artery Scan 11/08/20 21:30 Pulse 94 H 11/08/20 21:30 Respiratory Rate 20 11/08/20 21:30 Respiratory Effort Non-Labored 11/08/20 21:40 Respiratory Pattern Normal 11/08/20 21:41 Blood Pressure 154/100 H 11/08/20 21:30 Blood Pressure Position Supine 11/08/20 21:30 Pulse Oximetry 94 11/08/20 21:30 Oxygen Delivery Method Room Air 11/08/20 21:30 Oxygen Flow Rate 0 11/08/20 21:30 End Tidal Co2 42 11/08/20 21:30 Pain Level 0 11/08/20 21:30 Lab/Test Results Lab/Test Results: Laboratory Tests Range/Units 11/08/20 11/08/20 11/08/20 21:47 21:47 21:47 WBC (4.4-10.8) 10^3/uL 7.62 RBC (4.36-5.78) 10^6/uL 5.17 Hgb (13.5-17.5) g/dL 15.2 Hct (40.0-50.0) % 42.4 MCV (80-95) fL 82.0 MCH (27.0-33.0) pg 29.4 MCHC (32.0-36.0) % 35.8 RDW (11.8-14.1) % 12.2 Plt Count (130-400) 10^3/uL 225 MPV (8.0-11.0) fL 10.3 Immature Gran % 0.3 Neutrophils % 43.4 Lymphocytes % 46.5 Monocytes % 7.2 Eosinophils % 1.6 Basophils % 1.0 Nucleated RBC % % 0 Absolute Neutrophils (1.2-6.7) 10^3/uL 3.31 Absolute Lymphocytes (1.2-3.4) 10^3/uL 3.54 H Absolute Monocytes (0.1-0.8) 10^3/uL 0.55 Absolute Eosinophils (0.0-0.7) 10^3/uL 0.12 Absolute Basophils (0.0-0.2) 10^3/uL 0.08 PT (9.3-11.0) sec INR Not Applicable Salicylates (<2.8) mg/dL < 2.8 Acetaminophen (10-30) ug/mL < 2
[2020-11-08 23:10] LABS: CREATININE 0.5 mg/dL (0.70-1.30); Total Protein 7.7 g/dL (6.4-8.2); Troponin I < 0.05 ng/mL (<0.06)
[2020-11-08 23:11] LABS: Glucose 344 mg/dL (74-106)
--- NOTE | 2020-11-08 23:13 | DI.VRAD_ITS ---
PROCEDURE INFORMATION: Exam: CT Head Without Contrast Exam date and time: 11/08/2020 9:43 PM Age: 60 years old Clinical indication: Altered mental status/memory loss TECHNIQUE: Imaging protocol: Computed tomography of the head without contrast. COMPARISON: CT HEAD CERVICAL SPINE WO 01/30/2020 7:53 PM FINDINGS: Brain: Normal. No hemorrhage. Unremarkable white matter. No mass effect. Extra-axial space: No evidence of subdural hemorrhage. Cerebral ventricles: No ventriculomegaly. Paranasal sinuses: Visualized sinuses are unremarkable. No fluid levels. Mastoid air cells: Visualized mastoid air cells are well aerated. Bones/joints: Unremarkable. No acute fracture. Soft tissues: Unremarkable. IMPRESSION: No acute intracranial abnormality. PROCEDURE INFORMATION: Exam: CT Cervical Spine Without Contrast Exam date and time: 11/08/2020 9:43 PM Age: 60 years old Clinical indication: Altered mental status/memory loss TECHNIQUE: Imaging protocol: Computed tomography images of the cervical spine without contrast. COMPARISON: CT HEAD CERVICAL SPINE WO 01/30/2020 7:53 PM FINDINGS: Bones/joints: Negative for cervical spine fracture. Mild degenerative anterolisthesis noted C2 on C3. Anterior fusion at C5-C6 is solid. No complications are observed. Discs/Spinal canal/Neural foramina: Moderate disc space narrowing with endplate sclerosis and osteophyte formation noted at C4-C5, greatest on the right. Right uncovertebral spurring noted at C4-C5, with moderate neural foraminal narrowing on the right. Disc space narrowing and osteophyte formation noted at C6-C7, greatest on the left. Lungs: Lung apices are normal. Soft tissues: Unremarkable. IMPRESSION: Negative for cervical spine fracture. Dictated and Authenticated by: Cesario Giraldo MD. Ordering:JASVIR Elena MD
--- NOTE | 2020-11-08 23:14 | DI.VRAD_ITS ---
PROCEDURE INFORMATION: Exam: XR Chest Exam date and time: 11/08/2020 9:44 PM Age: 60 years old Clinical indication: Other: AMS TECHNIQUE: Imaging protocol: XR of the chest. Views: 2 views. COMPARISON: CR XR PORTABLE CHEST AP 01/31/2020 8:10 AM FINDINGS: Lungs: Lung volumes are low. Pulmonary vessels are mildly indistinct. Mild opacity noted in the lung bases. Pleural spaces: Unremarkable. No pleural effusion. No pneumothorax. Heart/Mediastinum: Unremarkable. No cardiomegaly. Bones/joints: Unremarkable. IMPRESSION: 1. Low lung volumes. 2. Mild interstitial infiltrates/edema. Dictated and Authenticated by: Cesario Giraldo MD. Ordering:JASVIR Elena MD
[2020-11-08 23:17] LABS: ALT 22 U/L (16-63); AST 49 U/L (15-37)
--- NOTE | 2020-11-08 23:19 | NUR.NOTE ---
pt elopes while still in eval, IV access removed prior to elopement, belongings with patient
== END 2020-11-08 23:20 ==
LOC: ER 21:47
PROVIDERS: Emergency Provider Student in an Organized Health Care Education/Training Program
DX: R41.89 Other symptoms and signs involving cognitive functions and awareness (principal); R41.82 Altered mental status, unspecified; R55 Syncope and collapse; Z53.29 Procedure and treatment not carried out because of patient's decision for other reasons
CPT/HCPCS: 36415; 80053; 85610; 93005; 99285; 70450; 71046; 72125; 80320; 80329; 84484; 85025; 93010; 99284

== ENCOUNTER 2022-05-28 21:33 | Emergency (ER) | payer OTHER, SELFPAY ==
--- NOTE | 2022-05-28 21:30 | RT.EKG_ITS ---
APPROVED REPORT Exam: Resting ECG Reason for Exam: fall, ms change Patient Location: E HR:95 bpm ECG Measurements Heart Rate 95 AXIS WV 146 P 53 QRSd 93 QRS -20 QT 352 T 39 QTc 443 Conclusion Sinus rhythm...normal P axis, V-rate 60- 99
[2022-05-28 21:33] VITALS: BP 137/80; PULSE 98; RESP 14; TEMP 37.1; O2SAT 94
--- NOTE | 2022-05-28 21:39 | W.ED.GENAD ---
Discharge Plan Disposition Patient Disposition: Eloped Condition: Improving Discharge Details Chief Complaint: AMS/LOC Clinical Impression: Left against medical advice Primary Care Provider: Lisa,Local ED Provider: Gurvinder Amaya Home Meds and New Rx's Prescriptions: No Action cyclobenzaprine 10 mg Tablet 10 mg PO BID PRN (Reason: Muscle Spasm) ibuprofen 800 mg Tablet 800 mg PO TID PRN PRN (Reason: pain) mirtazapine 30 mg Tablet 60 mg PO HS metformin 1,000 mg Tablet 1,000 mg PO BID AC paroxetine HCl 40 mg Tablet 80 mg PO HS multivitamin [Multiple Vitamins] Tablet 1 tab PO DAILY Qty: 0 0RF atorvastatin [Lipitor] 40 mg Tablet 40 mg PO QPM Qty: 30 0RF aspirin 81 mg Tablet,Chewable 81 mg PO DAILY Qty: 0 0RF glipizide 5 mg Tablet 5 mg PO DAILY@0730 Qty: 30 0RF amoxicillin-pot clavulanate 875-125 mg Tablet 1 tab PO BID Qty: 10 0RF fenofibrate nanocrystallized [Tricor] 145 mg Tablet 145 mg PO DAILY Qty: 30 0RF thiamine mononitrate (vit B1) [Vitamin B-1 (mononitrate)] 100 mg Tablet 100 mg PO DAILY Qty: 0 0RF Medical Decision Making 61-year-old male who was drinking alcohol at the [facility], when he fell backwards off a stool and struck him post. He became unresponsive, EMS was called, he was placed in a c-collar and brought to the hospital. He had normal glucose on route. On arrival he is initially unresponsive but then graspers and removed with tongue depressor and demonstrates normal neurologic exam. The patient had a work-up for his unresponsiveness and fall initiated. At approximately 10 PM he removed his c-collar and ambulated without difficulty out of the emergency department and eloped. HPI General Mode of arrival: EMS. Limitations to Documentation: altered mental status. Information obtained by: patient and EMS. History of Present Illness 61 year old M presents to the emergency department with the chief complaint of Intoxicated, fall, unresponsive, described as moderate and similar to prior episodes, and is localized to the head and right. Patient reports no radiation. Patient started experiencing this minute(s) and it has been other (Improving). No relieving factors improve symptom(s), No exacerbating factors reported . Patient notes denies chest pain. Patient did receive the following treatments prior to arrival, other (C-collar) Related Data Home Medications Medication Instructions Recorded Confirmed cyclobenzaprine 10 mg tablet 10 mg PO BID PRN Muscle Spasm 01/30/20 01/30/20 ibuprofen 800 mg tablet 800 mg PO TID PRN PRN pain 01/30/20 01/30/20 metformin 1,000 mg tablet 1,000 mg PO BID AC 01/30/20 01/30/20 mirtazapine 30 mg tablet 60 mg PO HS 01/30/20 01/30/20 paroxetine HCl 40 mg tablet 80 mg PO HS 01/30/20 01/30/20 amoxicillin 875 mg-potassium 1 tab PO BID #10 tabs 02/02/20 clavulanate 125 mg tablet aspirin 81 mg chewable tablet 81 mg PO DAILY #0 tabs 02/02/20 atorvastatin 40 mg tablet (Lipitor) 40 mg PO QPM #30 tabs 02/02/20 fenofibrate nanocrystallized 145 145 mg PO DAILY #30 tabs 02/02/20 mg tablet (Tricor) glipizide 5 mg tablet 5 mg PO DAILY@0730 #30 tabs 02/02/20 multivitamin (Multiple Vitamins 1 tab PO DAILY #0 tabs 02/02/20 tablet) thiamine mononitrate (vit B1) 100 100 mg PO DAILY #0 tabs 02/02/20 mg tablet (Vitamin B-1 (mononitrate)) Previous Rx's Medication Instructions Recorded amoxicillin 875 mg-potassium 1 tab PO BID #10 tabs 02/02/20 clavulanate 125 mg tablet aspirin 81 mg chewable tablet 81 mg PO DAILY #0 tabs 02/02/20 atorvastatin 40 mg tablet (Lipitor) 40 mg PO QPM #30 tabs 02/02/20 fenofibrate nanocrystallized 145 145 mg PO DAILY #30 tabs 20 mg tablet (Tricor) glipizide 5 mg tablet 5 mg PO DAILY@0730 #30 tabs 02/02/20 multivitamin (Multiple Vitamins 1 tab PO DAILY #0 tabs 02/02/20 tablet) thiamine mononitrate (vit B1) 100 100 mg PO DAILY #0 tabs 20 mg tablet (Vitamin B-1 (mononitrate)) Allergies Allergy/AdvReac Type Severity Reaction Status Date / Time No Known Allergies Allergy Unverified 06/09/15 22:23 General BOB: 2 Review of Systems Unobtainable due to mental status PFSH All Active Problems (Updated 05/28/22 @ 22:04 by Gurvinder Amaya MD) Left against medical advice (Acute) Hyponatremia (Acute) Mixed hyperlipidemia (Acute) ETOH abuse (Chronic) Non-insulin dependent type 2 diabetes mellitus (Chronic) CAD (coronary artery disease) (Chronic) On mechanically assisted ventilation (Acute) Hypertension (Chronic) Hyperlipidemia (Chronic) Aspiration pneumonia (Acute) Discharge planning issues (Acute) DVT prophylaxis (Acute) LOC (loss of consciousness) (Acute) Chest pain (Acute) Unresponsive (Acute) Alcohol intoxication (Acute) Encounter for intubation (Acute) Medical History Alcohol dependence Cervical radiculopathy due to degenerative joint disease of spine Impulse control disorder Internal thrombosed hemorrhoids Late effects of self-inflicted injury Major depressive disorder, recurrent, unspecified Migraines [facility] early 30s Neck pain Obstructive sleep apnea OCD (obsessive compulsive disorder) Polysubstance abuse PTSD (post-traumatic stress disorder) Rectal bleeding Rosacea Sleep disturbance TBI (traumatic brain injury) Surgical History Status post cervical discectomy Family History Other Family history unobtainable due to patient's condition Social History Smoking/Tobacco Use Status: Never Smoking risk assessment performed?: Yes Alcohol Intake: current Alcohol Intake frequency: other Alcohol type: other Drug use: Never Substance use type: unknown Exam Narrative Exam Narrative: GEN: awake, positive gag reflex, grasps and then removed tongue depressor HEAD: Normocephalic, atraumatic, no cephalohematoma ENT: Mucous membranes moist, oropharynx unremarkable, External ear exam unremarkable EYES: PERRL, EOMI NECK: Full ROM, no JOSE, no menigismus CHEST/RESP: Nontender, clear to auscultation bilateral, no wheeze/rhonchi/rales CARDIOVASCULAR: RRR, no murmur, rub melisa. 2+ Rad pulse bilateral ABDOMEN: Soft, nontender, no mass. +Bowel sounds EXT: Full ROM, no edema, no rash Neuro: Grossly normal neurologic exam
[2022-05-28 21:42] VITALS: RESP 14
[2022-05-28 21:55] LABS: Abs Immature Grans 0.02 10^3/uL (0.0-0.06); Absolute Basophil Count 0.07 10^3/uL (0.0-0.2); Absolute Eosinophil Count 0.12 10^3/uL (0.0-0.7); Absolute Lymphocyte Count 3.65 10^3/uL (1.2-3.4); Absolute Monocyte Count 0.61 10^3/uL (0.1-0.8); Absolute Neutrophil Count 3.79 10^3/uL (1.2-6.7); Basophils % 0.8; Eosinophils % 1.5; HCT 43.6 % (40.0-50.0); HGB 15.1 g/dL (13.5-17.5); Immature Grans % 0.2; Lymphocytes % 44.2; MCH 28.5 pg (27.0-33.0); MCHC 34.6 % (32.0-36.0); MCV 82 fL (80-95); Monocytes % 7.4; Neutrophils % 45.9; Platelet Count 225 10^3/uL (130-400); RBC 5.29 10^6/uL (4.36-5.78); RDW 12.5 % (11.8-14.1); RDW-SD 37.4 fL; WBC 8.26 10^3/uL (4.4-10.8)
[2022-05-28 22:12] LABS: ALT 29 U/L (16-63); Albumin 4.3 g/dL (3.4-5.0); Alkaline Phosphatase 72 U/L (46-116); Anion Gap 11.9 mmol/L (3-11); BUN 15 mg/dL (7-18); Bilirubin, Total 0.4 mg/dL (0.2-1.0); CO2 25.1 mmol/L (21.0-32.0); Calcium 8.8 mg/dL (8.5-10.1); Chloride 100 mmol/L (98-107); ETHANOL BLOOD 203.9 mg/dL (<10); Glucose 270 mg/dL (74-106); Magnesium 2.5 mg/dL (1.8-2.4); Potassium 3.9 mmol/L (3.5-5.1); Sodium 137 mmol/L (136-145); Total Protein 7.9 g/dL (6.4-8.2); Troponin I < 50 ng/L (<or=60)
[2022-05-28 22:21] LABS: AST 18 U/L (15-37)
== END 2022-05-28 22:02 | disposition left against medical advice (07) ==
PROVIDERS: Emergency Provider Emergency Medicine
DX: Z04.3 Encounter for examination and observation following other accident (principal); I10 Essential (primary) hypertension; E11.9 Type 2 diabetes mellitus without complications; F10.120 Alcohol abuse with intoxication, uncomplicated; Y90.7 Blood alcohol level of 200-239 mg/100 ml; Z53.29 Procedure and treatment not carried out because of patient's decision for other reasons
CPT/HCPCS: 80053; 93005; 99284; 80320; 83735; 84484; 85025; 93010

== ENCOUNTER 2022-10-14 14:18 | Emergency (ER) | payer OTHER, SELFPAY ==
[2022-10-14 14:26] VITALS: BP 157/89; PULSE 104; TEMP 37.1; O2SAT 98
--- NOTE | 2022-10-14 14:45 | RT.EKG_ITS ---
APPROVED REPORT Exam: Resting ECG Reason for Exam: tachy Patient Location: E HR:81 bpm ECG Measurements Heart Rate 81 AXIS NJ 136 P 54 QRSd 91 QRS 12 QT 369 T 35 QTc 430 Conclusion Sinus rhythm...normal P axis, V-rate 60- 99
--- NOTE | 2022-10-14 15:15 | NUR.NOTE ---
Nursing Note: Pt endorses telling SO that SO would have to take care of Rachana and pt was having an episode last night. Pt denies SI/HI now. Pt changed into paper clothing and belongings secured. Initial labs and EKG being finished now.
[2022-10-14 15:32] LABS: Abs Immature Grans 0.03 10^3/uL (0.0-0.06); Absolute Basophil Count 0.04 10^3/uL (0.0-0.2); Absolute Eosinophil Count 0.08 10^3/uL (0.0-0.7); Absolute Lymphocyte Count 2.47 10^3/uL (1.2-3.4); Absolute Monocyte Count 0.58 10^3/uL (0.1-0.8); Absolute Neutrophil Count 4.46 10^3/uL (1.2-6.7); Basophils % 0.5; HCT 43.5 % (40.0-50.0); HGB 14.9 g/dL (13.5-17.5); Immature Grans % 0.4; Lymphocytes % 32.2; MCH 28.4 pg (27.0-33.0); MCHC 34.3 % (32.0-36.0); MCV 83 fL (80-95); MPV 9.6 fL (8.0-11.0); Monocytes % 7.6; Neutrophils % 58.3; Platelet Count 219 10^3/uL (130-400); RBC 5.25 10^6/uL (4.36-5.78); RDW 12.6 % (11.8-14.1); RDW-SD 38.3 fL; WBC 7.66 10^3/uL (4.4-10.8)
[2022-10-14 15:53] LABS: Salicylate < 2.8 mg/dL (<2.8)
[2022-10-14 15:54] LABS: Acetaminophen < 2 ug/mL (10-30)
--- NOTE | 2022-10-14 15:55 | ED.GENADUL_ITS ---
Discharge Plan Discharge Details Chief Complaint: PsychEval Clinical Impression: Chronic post-traumatic stress disorder (PTSD) after combat, Alcohol abuse Primary Care Provider: Unknown,Unknown ED Provider: Cesario Robertson Home Meds and New Rx's Prescriptions: No Action cyclobenzaprine 10 mg Tablet 10 mg PO BID PRN (Reason: Muscle Spasm) ibuprofen 800 mg Tablet 800 mg PO TID PRN PRN (Reason: pain) mirtazapine 30 mg Tablet 60 mg PO HS metformin 1,000 mg Tablet 1,000 mg PO BID AC paroxetine HCl 40 mg Tablet 80 mg PO HS multivitamin [Multiple Vitamins] Tablet 1 tab PO DAILY Qty: 0 0RF atorvastatin [Lipitor] 40 mg Tablet 40 mg PO QPM Qty: 30 0RF aspirin 81 mg Tablet,Chewable 81 mg PO DAILY Qty: 0 0RF glipizide 5 mg Tablet 5 mg PO DAILY@0730 Qty: 30 0RF amoxicillin-pot clavulanate 875-125 mg Tablet 1 tab PO BID Qty: 10 0RF fenofibrate nanocrystallized [Tricor] 145 mg Tablet 145 mg PO DAILY Qty: 30 0RF thiamine mononitrate (vit B1) [Vitamin B-1 (mononitrate)] 100 mg Tablet 100 mg PO DAILY Qty: 0 0RF duloxetine 60 mg Capsule,Delayed Release(Dr/Ec) 60 mg PO QHS Medical Decision Making Lab Data Lab results reviewed: Yes I reviewed the patient's lab results. Lab results narrative: Labs are negative except for glucose that is little over 300. UDS is pending. ECG Data Attestation: I personally reviewed and interpreted this ECG (s) as follows: (EKG: Normal sinus rhythm at 81, normal intervals and EKG.) HPI General Date/Time Provider Initiated Documentation: 10/14/22 14:35 . 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 He tells me that he suffers from PTSD although it's not as bad as it used to be. He states that he used to drink a lot of alcohol but has cut down. He was drinking last night and feeling poorly from his PTSD which is due to combat in the war. He tells me that he was in the for 23 years. He called the [place] crisis hotline. He states that he also texted his that she would need to arrange to have their 10-year-old daughter Winnie this weekend and maybe forever. It is not clear what else he said to prompt healthcare workers to obtain a judges order for ER evaluation and hospitalization. Denies SI or HI. He does tell me that the spell that he had last night was not nearly as bad as he used to have in the past. Related Data Home Medications Medication Instructions Recorded Confirmed cyclobenzaprine 10 mg tablet 10 mg PO BID PRN Muscle Spasm 01/30/20 01/30/20 ibuprofen 800 mg tablet 800 mg PO TID PRN PRN pain 01/30/20 01/30/20 metformin 1,000 mg tablet 1,000 mg PO BID AC 01/30/20 01/30/20 mirtazapine 30 mg tablet 60 mg PO HS 01/30/20 01/30/20 paroxetine HCl 40 mg tablet 80 mg PO HS 01/30/20 01/30/20 amoxicillin 875 mg-potassium 1 tab PO BID #10 tabs 02/02/20 clavulanate 125 mg tablet aspirin 81 mg chewable tablet 81 mg PO DAILY #0 tabs 02/02/20 atorvastatin 40 mg tablet (Lipitor) 40 mg PO QPM #30 tabs 02/02/20 fenofibrate nanocrystallized 145 145 mg PO DAILY #30 tabs 02/02/20 mg tablet (Tricor) glipizide 5 mg tablet 5 mg PO DAILY@0730 #30 tabs 02/02/20 multivitamin (Multiple Vitamins 1 tab PO DAILY #0 tabs 02/02/20 tablet) thiamine mononitrate (vit B1) 100 100 mg PO DAILY #0 tabs 02/02/20 mg tablet (Vitamin B-1 (mononitrate)) duloxetine 60 mg capsule,delayed 60 mg PO QHS 10/14/22 10/14/22 release Previous Rx's Medication Instructions Recorded amoxicillin 875 mg-potassium 1 tab PO BID #10 tabs 02/02/20 clavulanate 125 mg tablet aspirin 81 mg chewable tablet 81 mg PO DAILY #0 tabs 02/02/20 atorvastatin 40 mg tablet (Lipitor) 40 mg PO QPM #30 tabs 02/02/20 fenofibrate nanocrystallized 145 145 mg PO DAILY #30 tabs 20 mg tablet (Tricor) glipizide 5 mg tablet 5 mg PO DAILY@0730 #30 tabs 02/02/20 multivitamin (Multiple Vitamins 1 tab PO DAILY #0 tabs 02/02/20 tablet) thiamine mononitrate (vit B1) 100 100 mg PO DAILY #0 tabs 02/02/20 mg tablet (Vitamin B-1 (mononitrate)) Allergies Allergy/AdvReac Type Severity Reaction Status Date / Time No Known Allergies Allergy Unverified 10/14/22 14:32 General Stated Complaint: PsychEval BOB: 2 Review of Systems Constitutional Constitutional: Denies chills, Denies fever(s), Denies headache(s) and Denies weakness Eyes Eyes: Denies diplopia and Reports other (no redness) ENT Ears, Nose, Mouth, and Throat: Denies otalgia, Denies headache(s), Denies nasal congestion, Denies nasal discharge, Denies neck pain and Denies sore throat Cardiovascular Cardiovascular: Denies chest pain, Denies palpitations and Denies dyspnea Respiratory Respiratory: Denies cough and Denies dyspnea Gastrointestinal Gastrointestinal: Denies abdominal pain, Denies diarrhea, Denies nausea and Denies vomiting Genitourinary Genitourinary: Denies difficulty urinating and Denies dysuria Musculoskeletal Musculoskeletal: Denies myalgias, Denies muscle weakness, Denies neck pain, Denies numbness and Reports other (edema) Integumentary/Breasts Skin/Breast: Denies change in pigmentation and Denies rash Neurologic Neurologic: Denies headache(s), Denies numbness and Denies weakness Endocrine Endocrine: Denies palpitations PFSH All Active Problems (Updated 10/14/22 @ 18:01 by Deb Lopez MD) Chronic post-traumatic stress disorder (PTSD) after combat (Acute) Alcohol abuse (Chronic) Hyponatremia (Acute) Mixed hyperlipidemia (Acute) ETOH abuse (Chronic) Non-insulin dependent type 2 diabetes mellitus (Chronic) CAD (coronary artery disease) (Chronic) On mechanically assisted ventilation (Acute) Hypertension (Chronic) Hyperlipidemia (Chronic) Aspiration pneumonia (Acute) Discharge planning issues (Acute) DVT prophylaxis (Acute) LOC (loss of consciousness) (Acute) Chest pain (Acute) Unresponsive (Acute) Alcohol intoxication (Acute) Encounter for intubation (Acute) Medical History Alcohol dependence Cervical radiculopathy due to degenerative joint disease of spine Impulse control disorder Internal thrombosed hemorrhoids Late effects of self-inflicted injury Major depressive disorder, recurrent, unspecified Migraines [facility] during his early 30s Neck pain Obstructive sleep apnea OCD (obsessive compulsive disorder) Polysubstance abuse PTSD (post-traumatic stress disorder) Rectal bleeding Rosacea Sleep disturbance TBI (traumatic brain injury) Surgical History Status post cervical discectomy Family History Other Family history unobtainable due to patient's condition Social History Smoking/Tobacco Use Status: Never Smoking risk assessment performed?: Yes Alcohol Intake: current Alcohol Intake frequency: a few times a month Alcohol type: beer Drug use: Never Substance use type: does not use Housing: house Do you feel safe at home: Yes Do you feel safe in your relationship?: Yes Exam Const General: no acute distress, well developed, well groomed and not in acute distress Nutritional Appearance: well nourished Orientation: alert and oriented x3 HENMT Head: normocephalic and atraumatic Ears: external ears normal Mouth: oropharynx normal and moist mucous membranes Throat: posterior oropharynx normal Eyes Conjunctivae: conjunctivae normal Neck Neck: full ROM and supple Chest Chest: normal inspection of the chest Resp Effort & Inspection: normal respiratory effort Auscultation: clear to auscultation bilaterally Cardio Rate: regular rate Rhythm: regular rhythm Heart Sounds: no murmurs and no rubs GI Inspection: normal to inspection Palpation: soft, nontender and other (non distended) Auscultation: normal bowel sounds Skin General skin exam: no rashes or lesions noted and other (pink, warm, dry) Neuro General: patient alert, patient awake and patient oriented x3 Speech: speech normal Motor: other ([place]) Sensory Exam: no sensory deficits noted Extrem General: normal to inspection, full ROM and pedal edema present Psych Mental Status: mental status grossly normal Speech and Movement: speech and movement normal Affect: normal affect Course Vital Signs Vital signs: Vital Signs Temperature 37.1 C 10/14/22 14:26 Pulse 104 H 10/14/22 14:26 Blood Pressure 157/89 H 10/14/22 14:26 Pulse Oximetry 98 10/14/22 14:26 Temperature 37.1 C 10/14/22 14:26 Temperature Source Temporal Artery Scan 10/14/22 14:26 Pulse 104 H 10/14/22 14:26 Respiratory Effort Normal 10/14/22 14:30 Blood Pressure 157/89 H 10/14/22 14:26 Blood Pressure Position Sitting 10/14/22 14:26 Pulse Oximetry 98 10/14/22 14:26 Oxygen Delivery Method Room Air 10/14/22 14:26 Oxygen Flow Rate 0 10/14/22 14:26 Pain Level 0 10/14/22 14:26 Lab/Test Results Lab/Test Results: Laboratory Tests Range/Units 10/14/22 10/14/22 15:20 15:20 WBC (4.4-10.8) 10^3/uL 7.66 RBC (4.36-5.78) 10^6/uL 5.25 Hgb (13.5-17.5) g/dL 14.9 Hct (40.0-50.0) % 43.5 MCV (80-95) fL 83 MCH (27.0-33.0) pg 28.4 MCHC (32.0-36.0) % 34.3 RDW (11.8-14.1) % 12.6 Plt Count (130-400) 10^3/uL 219 MPV (8.0-11.0) fL 9.6 Immature Gran % 0.4 Neutrophils % 58.3 Lymphocytes % 32.2 Monocytes % 7.6 Eosinophils % 1.0 Basophils % 0.5 Nucleated RBC % (0.0-0.3) % 0.0 Absolute Neutrophils (1.2-6.7) 10^3/uL 4.46 Absolute Lymphocytes (1.2-3.4) 10^3/uL 2.47 Absolute Monocytes (0.1-0.8) 10^3/uL 0.58 Absolute Eosinophils (0.0-0.7) 10^3/uL 0.08 Absolute Basophils (0.0-0.2) 10^3/uL 0.04 Salicylates (<2.8) mg/dL < 2.8 Acetaminophen (10-30) ug/mL < 2 Sign Out Sign Out Data: Sign Out Comment: 62-year-old with PTSD who is here for gabriel (signed judges order). Crisis has been called and will be coming in to see the patient Last updated by Deb Lopez MD at 10/14/22 16:14 PAWSS Have you Been Recently Intoxicated or Drunk Within the Last 30 days?: Yes Have you Ever Experienced Previous Episodes of Alcohol Withdrawal?: No Have you ever Experienced Withdrawal Seizures?: No Have you ever Experienced Delirium Tremens(DT)s?: No Have you ever undergone Alcohol Rehabilitation Treatment (i.e, inpt ot outpatient treatment programs)?: Yes Have you ever Experienced Blackouts?: Yes Have you ever Combined Alcohol with other Downers within the last 90 days?: No Have you ever Combined Alcohol with any other Substance of Abuse during the last 90 days?: No Result: 3
[2022-10-14 15:56] LABS: ALT 16 U/L (16-63); AST 14 U/L (15-37); Albumin 3.7 g/dL (3.4-5.0); Alkaline Phosphatase 81 U/L (46-116); Anion Gap 8.2 mmol/L (3-11); BUN 14 mg/dL (7-18); Bilirubin, Total 0.6 mg/dL (0.2-1.0); CO2 27.8 mmol/L (21.0-32.0); CREATININE 1.1 mg/dL (0.70-1.30); Calcium 8.5 mg/dL (8.5-10.1); Chloride 102 mmol/L (98-107); Estimated GFR 76.85 (mL/min/1.73m2); Glucose 312 mg/dL (74-106); Potassium 4.3 mmol/L (3.5-5.1); Sodium 138 mmol/L (136-145); TSH (W/Ref FT4) 0.74 uIU/mL (0.36-3.74); Total Protein 7.2 g/dL (6.4-8.2)
[2022-10-14 15:57] LABS: ETHANOL BLOOD < 3.0 mg/dL (<10)
--- NOTE | 2022-10-14 18:06 | CMPROGNOTE_ITS ---
Date of service: 10/14/22 Time of Service: 18:06 Care Management Progress Note Progress Note Text Progress Note Text: Bryan was brought to the ED on a court order. Last evening he texted his a message that caused her concern about his mental health and safety. Since arriving at [facility] Bryan has been calm and cooperative. CM met with him and he explained that he was not suicidal or homicidal. He stated that he was upset last night but was much better now. He shared his desire to go home. After screening by [facility] crisis screener today, the decision was made to discharge him home on a safety plan.
--- NOTE | 2022-10-14 18:09 | W.EDPROG ---
Date of service: 10/14/22 Time of Service: 18:09 Medical Decision Making pt stable, no si/hi on my exam and spoke with hs and cleared to go home which I feel is comfortable. Will d/c and have him f/u with pcp and his mental health providers Sign Out Sign Out Data: Sign Out Comment: 62-year-old with PTSD who is here for evnc (signed judges order). Crisis has been called and will be coming in to see the patient Last updated by Deb Lopez MD at 10/14/22 16:14 Discharge Plan Disposition Patient Disposition: Home Condition: Stable Discharge Details Clinical Impression: Chronic post-traumatic stress disorder (PTSD) after combat Primary Care Provider: Unknown,Unknown ED Provider: Cesario Robertson Home Meds and New Rx's Prescriptions: Continued cyclobenzaprine 10 mg Tablet 10 mg PO BID PRN (Reason: Muscle Spasm) ibuprofen 800 mg Tablet 800 mg PO TID PRN PRN (Reason: pain) mirtazapine 30 mg Tablet 60 mg PO HS metformin 1,000 mg Tablet 1,000 mg PO BID AC paroxetine HCl 40 mg Tablet 80 mg PO HS multivitamin [Multiple Vitamins] Tablet 1 tab PO DAILY Qty: 0 0RF atorvastatin [Lipitor] 40 mg Tablet 40 mg PO QPM Qty: 30 0RF aspirin 81 mg Tablet,Chewable 81 mg PO DAILY Qty: 0 0RF glipizide 5 mg Tablet 5 mg PO DAILY@0730 Qty: 30 0RF amoxicillin-pot clavulanate 875-125 mg Tablet 1 tab PO BID Qty: 10 0RF fenofibrate nanocrystallized [Tricor] 145 mg Tablet 145 mg PO DAILY Qty: 30 0RF thiamine mononitrate (vit B1) [Vitamin B-1 (mononitrate)] 100 mg Tablet 100 mg PO DAILY Qty: 0 0RF duloxetine 60 mg Capsule,Delayed Release(Dr/Ec) 60 mg PO QHS Discharge Instructions Additional Instructions: follow up with your primary care provider and mental health providers if you feel more ill, have thoughts of self harm or others return to the emergency department
--- NOTE | 2022-10-15 17:11 | PDOC.MHCN_ITS ---
Date of service: 10/14/22 Time of Service: 17:10 PHQ-9 Over the last 2 weeks, how often have you been bothered by any of the following problems? 1. Little interest or pleasure in doing things: nearly every day 2. Feeling down, depressed, or hopeless: nearly every day 3. Trouble falling or staying asleep, or sleeping too much: nearly every day 4. Feeling tired or having little energy: nearly every day 5. Poor appetite or overeating: nearly every day 6. Feeling bad about yourself - or that you are a failure or have let yourself and your family down: not at all 7. Trouble concentrating on things, such as reading the newspaper or watching television: nearly every day 8. Moving or speaking so slowly that other people could have noticed? - Or the opposite - being so fidgety or restless that you have been moving around a lot more than usual: not at all 9. Thoughts that you would be better off or of hurting yourself in some way: not at all Total score: 18 If you checked off any problems, how difficult have these problems made it for y ou to do your work, take care of things at home, or get along with other people?: not difficult at all Source: Developed by Drs. Vinicio Fatima, Kristina Deleon, Nash Taveras and colleagues, with an educational red from [employer]. Suicide Severity Rate CSSRS Have you wished you were or wished you could go to sleep and not wake up?: No Have you actually had any thoughts of killing yourself?: No CSSRS3 Have you ever done anything, started to do anything or prepared to do anything to end your life?: Yes CSSRS4 Was this within the past three months?: No Screening Score Total Score: 2 Screening: Positive Mental Health Emergency Note Release [facility] release signed:: Yes Reason for Visit In the last 2 weeks has the pt presented for ES prior to today?: No Client Information Client is: Adult Outpatient Well Housed: Yes Non Suicidal Self Injury Current: No History: No Safety Risk/Harm to Self or Others Current Ideation to Harm Self or Others: No Risk: Does risk to harm exist?: No Asssessment/Mental Status Appearance: Disheveled Attitude: Cooperative and Hostile Behavior: Unremarkable Speech: Normal Affect: Normal Mood: Stressed and Irritable Thought process: Unremarkable Hallucinations: No evidence Delusions: No evidence Attention: Unremarkable Perception: Not impaired Orientation: Fully orientated Memory: Impaired in: (Client reported that he has a bad memory ) Immediate Insight: Good Judgement: Good Neurovegetative Symptoms Sleep: No change (Client has a hard time sleeping due to PTSD) Appetitie: Disordered (Client reports that he eats one meal a day ) Interests: Decrease Energy: Decrease Libido: Not applicable Substance Use: Other (Client drinks occasionally ) Drug Issues: Other (NO) Do you use nicotine?: No Have you used substances in the last 7 days?: yes, Alcohol Additional Issues: Assaultive/Threatening Behavior: No Medical Concerns: No Client engaged in active self harm w/weapon: No Threatening to run away: No Child reported abuse/neglect: No Voluntarily presenting for services: Yes Domestic violence is a concern: No Extreme Psychosis or extreme behavior is present: No Impression Client is Bryan Deleon 62-year-old male who presented into [facility] Ed with police after a warrant was written to evaluate the client?s mental well-being and if he was a risk to himself or others. Client reported that he had sent a text to the mother of his daughter last night but was able to calm down within a 10-minute span of time. Client acknowledged that his PTSD is getting worse [facility] talk [facility] program centered around PTSD treatments. Client was cooperative but appeared disheveled client reported a lack of sleep and appetite but due to his PTSD, client reported no thoughts of SI or HI at this time to this medical technical writer and did not report an intent or plan to cause harm to himself and did not report that he engages in non-suicidal self-injury. Client did report an attempt over 10 years ago that did result in an inpatient stay at a facility in [place]. At this time client was deemed not a danger to himself or others and was safety planned home with the intent to [facility] tomorrow at 2:00 to further discuss potential treatments for PTSD. Plan/Disposition Recommended Disposition: Community resources. Reports/communication Outcome discussed with: ED/Personnel
== END 2022-10-14 19:05 | disposition home or self-care (01) ==
PROVIDERS: Emergency Medicine; Emergency Provider Emergency Medicine
DX: F43.11 Post-traumatic stress disorder, acute (principal); F10.10 Alcohol abuse, uncomplicated; R00.0 Tachycardia, unspecified; I25.2 Old myocardial infarction; Z87.820 Personal history of traumatic brain injury; E11.9 Type 2 diabetes mellitus without complications; I25.10 Atherosclerotic heart disease of native coronary artery without angina pectoris; Z79.82 Long term (current) use of aspirin; Z79.84 Long term (current) use of oral hypoglycemic drugs
CPT/HCPCS: 36415; 80053; 93005; 99284; 80320; 80329; 84443; 85025; 93010

== ENCOUNTER 2023-02-09 21:50 | Emergency (ER) | payer OTHER, SELFPAY ==
[2023-02-09] VITALS (21 sets, daily range): BP systolic 102–130; BP diastolic 67–87; PULSE 83–104; RESP 9–26; TEMP 36.7; O2SAT 88–97
--- NOTE | 2023-02-09 21:30 | RT.EKG_ITS ---
APPROVED REPORT Exam: Resting ECG Reason for Exam: ams Patient Location: E HR:108 bpm ECG Measurements Heart Rate 108 AXIS IA 141 P 52 QRSd 98 QRS 29 QT 368 T 26 QTc 494 Conclusion Sinus tachycardia...rate> [address] segment or T wave abnormalities to suggest occlusive HI
--- NOTE | 2023-02-09 21:45 | DI.CT_ITS ---
Exam(s) CT HEAD WO EXAM: CT HEAD WO CLINICAL HISTORY: seziure. TECHNIQUE: Imaging Protocol: Axial computed tomography images with coronal and sagittal reformatted images were created and reviewed COMPARISON: CT CT HEAD CERVICAL SPINE WO from 11/08/2020 FINDINGS: Ventricles and Extra axial spaces: Normal in size and morphology for the patient's age. Hemorrhage: None. Cerebral parenchyma: No acute midline shift or mass effect. Midline shift: None. Brainstem/Cerebellum: Normal. Calvarium: Normal. Visualized Paranasal sinuses/Mastoids: Clear. Soft Tissues: Unremarkable. IMPRESSION: No acute intracranial process. RADIATION DOSE DELIVERED: Total DLP DATA REPOSITORY: All CT scans at this facility are submitted to the National Radiology Data Registry (NRDR) Dose Index Registry (DIR) with the [employer] ([employer]). RADIATION OPTIMIZATION: All CT scans at this facility use at least one of these dose optimization te chniques: automated exposure control; mA and/or kV adjustment per patient size (includes targeted exa ms where dose is matched to clinical indication); or iterative reconstruction.
--- NOTE | 2023-02-09 21:56 | DI.RAD_ITS ---
Exam(s) XR CHEST 1V IN DI DEPT EXAM: XR CHEST 1V IN DI DEPT CLINICAL HISTORY: seizure TECHNIQUE: 2D digital imaging was performed of the chest. One image was obtained. An AP view was ob tained. COMPARISON: CR,XR XR CHEST 2V PA LATERAL from 11/08/2020 FINDINGS: There is poor inspiration. MEDIASTINUM: Normal. HEART: Normal. PULMONARY VASCULATURE: Normal. LUNGS: Clear. PLEURAL SPACE: No pleural effusion or pneumothorax. BONE:Within normal limits for the patient's age. OTHER FINDINGS:Normal. IMPRESSION: No acute pulmonary findings. DATA REPOSITORY: RADIATION DOSE DELIVERED:
[2023-02-09 22:23] LABS: Abs Immature Grans 0.01 10^3/uL (0.0-0.06); Absolute Basophil Count 0.07 10^3/uL (0.0-0.2); Absolute Lymphocyte Count 2.84 10^3/uL (1.2-3.4); Absolute Monocyte Count 0.52 10^3/uL (0.1-0.8); Basophils % 1.1; Eosinophils % 1.6; HCT 43.4 % (40.0-50.0); HGB 14.9 g/dL (13.5-17.5); Immature Grans % 0.2; Lymphocytes % 46.3; MCHC 34.3 % (32.0-36.0); MCV 84 fL (80-95); MPV 9.7 fL (8.0-11.0); Monocytes % 8.5; Neutrophils % 42.3; Platelet Count 218 10^3/uL (130-400); RBC 5.14 10^6/uL (4.36-5.78); RDW 12.9 % (11.8-14.1); RDW-SD 39.5 fL; WBC 6.14 10^3/uL (4.4-10.8)
--- NOTE | 2023-02-09 22:24 | ED.GENADUL_ITS ---
Discharge Plan Discharge Details Chief Complaint: Seizure ED Provider: Liane Gamboa Home Meds and New Rx's Prescriptions: No Action cyclobenzaprine 10 mg Tablet 10 mg PO BID PRN (Reason: Muscle Spasm) ibuprofen 800 mg Tablet 800 mg PO TID PRN PRN (Reason: pain) mirtazapine 30 mg Tablet 60 mg PO HS metformin 1,000 mg Tablet 1,000 mg PO BID AC paroxetine HCl 40 mg Tablet 80 mg PO HS atorvastatin [Lipitor] 40 mg Tablet 40 mg PO QPM Qty: 30 0RF aspirin 81 mg Tablet,Chewable 81 mg PO DAILY Qty: 0 0RF glipizide 5 mg Tablet 5 mg PO DAILY@0730 Qty: 30 0RF amoxicillin-pot clavulanate 875-125 mg Tablet 1 tab PO BID Qty: 10 0RF fenofibrate nanocrystallized [Tricor] 145 mg Tablet 145 mg PO DAILY Qty: 30 0RF thiamine mononitrate (vit B1) [Vitamin B-1 (mononitrate)] 100 mg Tablet 100 mg PO DAILY Qty: 0 0RF duloxetine 60 mg Capsule,Delayed Release(Dr/Ec) 60 mg PO QHS Medical Decision Making 62yo M with hx of polysubstance use, ETOH abuse, T2DM, CAD, HTN, HLD, PTSD, presenting via EMS for unresponsiveness. Medical history from [facility] record review. [facility] and EMS responded to patient's address for a 911 hang-up call; on [facility] arrival they found him unresponsive and administered Narcan. Remained unresponsive on EMS arrival with normal vital signs, blood glucose in 200's. No drug paraphanelia noted and no indication of overdose found near patient. Shortly after their arrival he began to have generalized tonic-clonic activity; this lasted for approximately 4 minutes and was terminated with 10mg of diazapam. Shortly after this he again became responsive, agitated, and pulled out his IVs. Limited history from patient, post-ictal vs clinically intoxicated on arrival. He does report having seizures in the past but cannot further clarify. Vital signs reassuring, benign physical exam, grossly non-focal neurologic exam though patient not fully participatory with assessment. Head CT independently reviewed, no acute bleed on my view, agree with radiology read below. CXR independently reviewed, no focal pneumonia on my view, agree with radiology read below. EKG sinus tachycardia, appropriate intervals, no indication of occlusive SD. Labs reviewed as below, normal CBC with no leukocytosis, CMP with no significant electrolyte abnormalities, slightly elevated gap (presume 2/t lactic in setting of tonic-clonic seizure), initial troponin negative, serum salicylate and tylenol negative, ethanol 230. On reassessment he remains nontoxic appearing with reassuring vital signs, continues with confusion and dysarthria (again ? continued post-ictal state vs alcohol intoxication). Will need continued observation and reassessment in the ED, futher clarification of seizure history once patient is able to provided. Signed out to overnight physician pending UA and UDS, delta troponin, re-eval. Medical Records Medical records reviewed: Yes I reviewed the patient's medical records. Imaging Data Radiologic Study: Imaging: X-Ray Radiologist's impression: IMPRESSION: No acute findings. Radiologic Study #2: Imaging: CT Scan Radiologist's impression: IMPRESSION: No acute intracranial abnormality. Lab Data Lab results reviewed: Yes I reviewed the patient's lab results. Labs: Laboratory Tests Range/Units 02/09/23 22:15 WBC (4.4-10.8) 10^3/uL 6.14 RBC (4.36-5.78) 10^6/uL 5.14 Hgb (13.5-17.5) g/dL 14.9 Hct (40.0-50.0) % 43.4 MCV (80-95) fL 84 MCH (27.0-33.0) pg 29.0 MCHC (32.0-36.0) % 34.3 RDW (11.8-14.1) % 12.9 Plt Count (130-400) 10^3/uL 218 MPV (8.0-11.0) fL 9.7 Immature Gran % 0.2 Neutrophils % 42.3 Lymphocytes % 46.3 Monocytes % 8.5 Eosinophils % 1.6 Basophils % 1.1 Nucleated RBC % (0.0-0.3) % 0.0 Absolute Neutrophils (1.2-6.7) 10^3/uL 2.60 Absolute Lymphocytes (1.2-3.4) 10^3/uL 2.84 Absolute Monocytes (0.1-0.8) 10^3/uL 0.52 Absolute Eosinophils (0.0-0.7) 10^3/uL 0.10 Absolute Basophils (0.0-0.2) 10^3/uL 0.07 Sodium (136-145) mmol/L 136 Potassium (3.5-5.1) mmol/L 3.7 Chloride (98-107) mmol/L 100 Carbon Dioxide (21.0-32.0) mmol/L 22.3 Anion Gap (3-11) mmol/L 13.7 H BUN (7-18) mg/dL 11 Creatinine (0.70-1.30) mg/dL 1.0 Est GFR (CKD-EPI 2020) (mL/min/1.73m2) 86.16 Glucose (74-106) mg/dL 291 H Calcium (8.5-10.1) mg/dL 8.9 Magnesium (1.8-2.4) mg/dL 2.5 H Total Bilirubin (0.2-1.0) mg/dL 0.4 AST (15-37) U/L 14 L ALT (16-63) U/L 25 Alkaline Phosphatase (46-116) U/L 74 Troponin I (<or=60) ng/L < 50 Total Protein (6.4-8.2) g/dL 7.4 Albumin (3.4-5.0) g/dL 3.8 Salicylates (<2.8) mg/dL < 2.8 Acetaminophen (10-30) ug/mL < 2 Ethyl Alcohol (<10) mg/dL 229.9 H HPI General Mode of arrival: EMS . Date/Time Provider Initiated Documentation: 02/09/23 21:55 . Limitations to Documentation: altered mental status . Information obtained by: patient, EMS and old records reviewed . HPI Narrative: 62yo M with hx of polysubstance use, ETOH abuse, T2DM, CAD, HTN, HLD, PTSD, presenting via EMS for unresponsiveness. [facility] and [facility] responded to patient's address for a 911 hang-up call; on [facility] arrival they found him unresponsive and administered Narcan. Remained unresponsive on EMS arrival with normal vital signs. No drug paraphanelia noted and no indication of overdose found near patient. Shortly after their arrival he began to have generalized tonic-clonic activity; this lasted for approximately 4 minutes and was terminated with 10mg of diazapam. Shortly after this he again became responsive, agitated, and pulled out his IVs. Limited history from patient, somewhat confused on arrival, unable to provide medical history. Medical history from [facility] chart review. He does state he has had seizures before though I cannot identify any seizure history on chart review. Related Data Home Medications Medication Instructions Recorded Confirmed cyclobenzaprine 10 mg tablet 10 mg PO BID PRN Muscle Spasm 01/30/20 02/09/23 ibuprofen 800 mg tablet 800 mg PO TID PRN PRN pain 01/30/20 02/09/23 metformin 1,000 mg tablet 1,000 mg PO BID AC 01/30/20 02/09/23 mirtazapine 30 mg tablet 60 mg PO HS 01/30/20 02/09/23 paroxetine HCl 40 mg tablet 80 mg PO HS 01/30/20 02/09/23 amoxicillin 875 mg-potassium 1 tab PO BID #10 tabs 02/02/20 02/09/23 clavulanate 125 mg tablet aspirin 81 mg chewable tablet 81 mg PO DAILY #0 tabs 02/02/20 02/09/23 atorvastatin 40 mg tablet (Lipitor) 40 mg PO QPM #30 tabs 02/02/20 02/09/23 fenofibrate nanocrystallized 145 145 mg PO DAILY #30 tabs 02/02/20 02/09/23 mg tablet (Tricor) glipizide 5 mg tablet 5 mg PO DAILY@0730 #30 tabs 02/02/20 02/09/23 thiamine mononitrate (vit B1) 100 100 mg PO DAILY #0 tabs 02/02/20 02/09/23 mg tablet (Vitamin B-1 (mononitrate)) duloxetine 60 mg capsule,delayed 60 mg PO QHS 10/14/22 02/09/23 release Previous Rx's Medication Instructions Recorded amoxicillin 875 mg-potassium 1 tab PO BID #10 tabs 02/02/20 clavulanate 125 mg tablet aspirin 81 mg chewable tablet 81 mg PO DAILY #0 tabs 02/02/20 atorvastatin 40 mg tablet (Lipitor) 40 mg PO QPM #30 tabs 02/02/20 fenofibrate nanocrystallized 145 145 mg PO DAILY #30 tabs 02/02/20 mg tablet (Tricor) glipizide 5 mg tablet 5 mg PO DAILY@0730 #30 tabs 02/02/20 thiamine mononitrate (vit B1) 100 100 mg PO DAILY #0 tabs 02/01/20 mg tablet (Vitamin B-1 (mononitrate)) Allergies Allergy/AdvReac Type Severity Reaction Status Date / Time No Known Allergies Allergy Unverified 02/09/23 22:43 General Stated Complaint: Seizure BOB: 2 PFSH All Active Problems (Updated 11/14/22 @ 00:06 by JOMAR TORRES) Hyponatremia (Acute) Mixed hyperlipidemia (Acute) ETOH abuse (Chronic) Non-insulin dependent type 2 diabetes mellitus (Chronic) CAD (coronary artery disease) (Chronic) On mechanically assisted ventilation (Acute) Hypertension (Chronic) Hyperlipidemia (Chronic) Aspiration pneumonia (Acute) Discharge planning issues (Acute) DVT prophylaxis (Acute) LOC (loss of consciousness) (Acute) Chest pain (Acute) Unresponsive (Acute) Alcohol intoxication (Acute) Encounter for intubation (Acute) Medical History Alcohol dependence Cervical radiculopathy due to degenerative joint disease of spine Impulse control disorder Internal thrombosed hemorrhoids Late effects of self-inflicted injury Major depressive disorder, recurrent, unspecified Migraines [facility], during his early 30s Neck pain Obstructive sleep apnea OCD (obsessive compulsive disorder) Polysubstance abuse PTSD (post-traumatic stress disorder) Rectal bleeding Rosacea Sleep disturbance TBI (traumatic brain injury) Surgical History Status post cervical discectomy Family History Other Family history unobtainable due to patient's condition Social History Smoking/Tobacco Use Status: Never Smoking risk assessment performed?: Yes Alcohol Intake: current Alcohol Intake frequency: a few times a month Alcohol type: beer Drug use: Never Substance use type: does not use Housing: house Do you feel safe at home: Yes Do you feel safe in your relationship?: Yes Exam Narrative Exam Narrative: General: Alert,in no acute distress. Head: Normocephalic, atraumatic Neck: Trachea midline, Neck supple. Cardiac: RRR, no murmurs appreciated Resp: No respiratory distress. CTAB. Abd: Soft, non-distended, nontender : No suprapubic tenderness. Incontinent of urine. Extremities: No deformities. No peripheral edema. Neuro: GCS 14. PERRL. EOMI. Slurred speech. No facial asymmetry. Motor- Moves all extremities freely against gravity. Sensation- Intact to light touch and symmetric multiple dermatomes including upper and lower extremities Course Vital Signs Vital signs: Vital Signs Temperature 36.7 C 02/09/23 21:51 Pulse 97 H 02/09/23 21:51 Respiratory Rate 18 02/09/23 21:51 Blood Pressure 130/87 02/09/23 21:51 Pulse Oximetry 91 L 02/09/23 21:51 Temperature 36.7 C 02/09/23 21:51 Pulse 97 H 02/09/23 21:51 Respiratory Rate 18 02/09/23 21:51 Respiratory Effort Normal 02/09/23 21:58 Respiratory Depth Normal 02/09/23 21:58 Respiratory Pattern Normal 02/09/23 21:58 Blood Pressure 130/87 02/09/23 21:51 Pulse Oximetry 91 L 02/09/23 21:51 Oxygen Delivery Method Room Air 02/09/23 21:51 Oxygen Flow Rate 0 02/09/23 21:51 Comment unable to get a pain level 02/09/23 21:51 Sign Out Sign Out Data: Sign Out Comment: 62yo M unclear if past seizure history presenting after unresponsive episode followed by generalized tonic-clonic activity terminated by EMS with benzos. Post-ictal vs intoxicated on arrival. Head CT negative, labs overall reassuring, ETOH 230. Pending delta troponin, urine, sober re-eval. Will need to clarify if he does have true seizure history or not. Last updated by Liane Gamboa MD at 02/09/23 23:35 PAWSS Have you Been Recently Intoxicated or Drunk Within the Last 30 days?: Unable to Obtain Have you Ever Experienced Previous Episodes of Alcohol Withdrawal?: Unable to Obtain Have you ever Experienced Withdrawal Seizures?: No Have you ever Experienced Delirium Tremens(DT)s?: Unable to Obtain Have you ever undergone Alcohol Rehabilitation Treatment (i.e, inpt ot outpatient treatment programs)?: Unable to Obtain Have you ever Experienced Blackouts?: Unable to Obtain Have you ever Combined Alcohol with other Downers within the last 90 days?: Unable to Obtain Have you ever Combined Alcohol with any other Substance of Abuse during the last 90 days?: Unable to Obtain Positive Blood Alcohol level on Presentation? [PCS.BAL]: Unable to Obtain Evidence of Increased Autonomic Activity (i.e. HR>120, tremor, sweating, agitation, nausea)?: Unable to Obtain Result: 0
[2023-02-09 22:39] LABS: ALT 25 U/L (16-63); AST 14 U/L (15-37); Albumin 3.8 g/dL (3.4-5.0); Alkaline Phosphatase 74 U/L (46-116); Anion Gap 13.7 mmol/L (3-11); BUN 11 mg/dL (7-18); Bilirubin, Total 0.4 mg/dL (0.2-1.0); CO2 22.3 mmol/L (21.0-32.0); Calcium 8.9 mg/dL (8.5-10.1); Chloride 100 mmol/L (98-107); ETHANOL BLOOD 229.9 mg/dL (<10); Estimated GFR 86.16 (mL/min/1.73m2); Glucose 291 mg/dL (74-106); Potassium 3.7 mmol/L (3.5-5.1); Sodium 136 mmol/L (136-145); Total Protein 7.4 g/dL (6.4-8.2)
--- NOTE | 2023-02-09 22:40 | DI.VRAD_ITS ---
PROCEDURE INFORMATION: Exam: CT Head Without Contrast Exam date and time: 02/09/2023 10:23 PM Age: 62 years old Clinical indication: Other: Seizure TECHNIQUE: Imaging protocol: Computed tomography of the head without contrast. Radiation optimization: All CT scans at this facility use at least one of these dose optimization techniques: automated exposure control; mA and/or kV adjustment per patient size (includes targeted exams where dose is matched to clinical indication); or iterative reconstruction. COMPARISON: CT HEAD CERVICAL SPINE WO 11/08/2020 10:29 PM FINDINGS: Brain: Moderate volume loss No hemorrhage. Mild white matter disease No mass effect. Cerebral ventricles: No ventriculomegaly. Paranasal sinuses: Visualized sinuses are unremarkable. No fluid levels. Mastoid air cells: Visualized mastoid air cells are well aerated. Bones/joints: Unremarkable. No acute fracture. Soft tissues: Unremarkable. IMPRESSION: No acute intracranial abnormality. Dictated and Authenticated by: Jeff Hernandez MD. Ordering:JENNIE Rob MD
[2023-02-09 22:41] LABS: Magnesium 2.5 mg/dL (1.8-2.4); Troponin I < 50 ng/L (<or=60)
--- NOTE | 2023-02-09 22:41 | DI.VRAD_ITS ---
PROCEDURE INFORMATION: Exam: XR Chest Exam date and time: 02/09/2023 10:35 PM Age: 62 years old Clinical indication: Other: Seizure TECHNIQUE: Imaging protocol: Radiologic exam of the chest. Views: 1 view. COMPARISON: CR XR CHEST 2V PA LATERAL 11/08/2020 10:28 PM FINDINGS: Lungs: Low lung volumes No consolidation. Pleural spaces: No pleural effusion. No pneumothorax. Heart/Mediastinum: Grossly stable. Bones/joints: Unremarkable. IMPRESSION: No acute findings. Dictated and Authenticated by: Jeff Hernandez MD. Ordering:JENNIE Rob MD
[2023-02-09 22:50] LABS: Salicylate < 2.8 mg/dL (<2.8)
[2023-02-09 22:51] LABS: Acetaminophen < 2 ug/mL (10-30)
[2023-02-10] VITALS (92 sets, daily range): BP systolic 85–163; BP diastolic 48–97; PULSE 89–107; RESP 16–22; O2SAT 90–99
[2023-02-10 02:00] LABS: Troponin I < 50 ng/L (<or=60)
[2023-02-10 04:19] LABS: Bilirubin Negative (Negative); Blood Negative (Negative); Clarity Clear (Clear); Glucose 500 mg/dL (Negative); Ketones Trace mg/dL (Negative); Leukocyte Esterase Negative (Negative); Nitrite Negative (Negative); Specific Gravity <= 1.005 (1.005-1.025); Urobilinogen 0.2 mg/dL (Up to 0.2)
[2023-02-10 04:32] LABS: *AMPHETAMINES SCREEN URINE Negative (Negative); *BARBITURATES SCREEN URINE Negative (Negative); *BENZODIAZEPINES SCREEN URINE Positive (Negative); Cannabinoids THC Negative (Negative); Cocaine Screen,Urine Negative (Negative); METHADONE URINE SCREEN Negative (Negative); OPIATES URINE SCREEN Negative (Negative)
[2023-02-10 04:36] LABS: Tricyclic Antidepressants Negative (Negative)
--- NOTE | 2023-02-10 07:43 | W.EDPROG ---
Date of service: 02/10/23 Time of Service: 07:46 Medical Decision Making The patient was obtained in signout at approximately midnight from Dr. Gamboa. The patient was observed overnight in the emergency room for improved sobriety and was in fact much more interactive this morning with my conversation and examination. The patient does not appear to be exhibiting acute alcohol withdrawal at the moment. He has a heart rate of 98 and a blood pressure of 116/91, without any stress to physiology. I asked the patient to this morning when he awoke whether or not he would like to go home and he is unsure of what he would like to do. We discussed the fact that the abnormal behavior last night did not appear to be seizures. He has concerns about his frequent falls at home and we discussed that this is almost assuredly related to his alcohol misuse disorder. I have signed this case out to Dr. Ulices Núñez over the morning shift, and he has plans to reach out to a assistant cross country coach and discuss outpatient management. Sign Out Sign Out Data: Sign Out Comment: 62yo M unclear if past seizure history presenting after unresponsive episode followed by generalized tonic-clonic activity terminated by EMS with benzos. Post-ictal vs intoxicated on arrival. Head CT negative, labs overall reassuring, ETOH 230. Pending delta troponin, urine, sober re-eval. Will need to clarify if he does have true seizure history or not. Last updated by Liane Gamboa MD at 02/09/23 23:35 Discharge Plan Discharge Details Chief Complaint: Seizure Primary Care Provider: Unknown,Unknown ED Provider: Mayank Barba Home Meds and New Rx's Prescriptions: No Action cyclobenzaprine 10 mg Tablet 10 mg PO BID PRN (Reason: Muscle Spasm) ibuprofen 800 mg Tablet 800 mg PO TID PRN PRN (Reason: pain) mirtazapine 30 mg Tablet 60 mg PO HS metformin 1,000 mg Tablet 1,000 mg PO BID AC paroxetine HCl 40 mg Tablet 80 mg PO HS atorvastatin [Lipitor] 40 mg Tablet 40 mg PO QPM Qty: 30 0RF aspirin 81 mg Tablet,Chewable 81 mg PO DAILY Qty: 0 0RF glipizide 5 mg Tablet 5 mg PO DAILY@0730 Qty: 30 0RF amoxicillin-pot clavulanate 875-125 mg Tablet 1 tab PO BID Qty: 10 0RF fenofibrate nanocrystallized [Tricor] 145 mg Tablet 145 mg PO DAILY Qty: 30 0RF thiamine mononitrate (vit B1) [Vitamin B-1 (mononitrate)] 100 mg Tablet 100 mg PO DAILY Qty: 0 0RF duloxetine 60 mg Capsule,Delayed Release(Dr/Ec) 60 mg PO QHS
[2023-02-10] MEDS: THIAMINE 100 MG in Normal Saline 100 ML 200 MG IVPB (07:57)
--- NOTE | 2023-02-10 10:16 | ED.PROG_ITS ---
Date of service: 02/10/23 Time of Service: 10:32 Medical Decision Making Care was signed out by Dr. Castañeda , please see his documentation regarding prior ED course. Plan at signout was to await monitor for clinical sobriety and consult swimming coach or instructor. 1020 -- Patient reassessed and is sober. Patient is hemodynamically stable and neurologically intact. motorcoach operator here to meet with the patient. 1030 --patient refusing swimming coach or instructor services but [facility] Plan for discharge. Disposition decision was made weighing the risks and benefits of hospitalization versus outpatient treatment, the risk for further decompensation, and the patient's wishes. The patient was stable and requested discharge. Prior to discharge, my usual and customary return precautions were reviewed with the patient - this included follow-up instructions and reason to return to the emergency department if condition worsens, does not improve as expected, or other new concerns arise. I reviewed all results with the patient. He understands importance of medication compliance. Sign Out Sign Out Data: Sign Out Comment: 62yo M unclear if past seizure history presenting after unresponsive episode followed by generalized tonic-clonic activity terminated by EMS with benzos. Post-ictal vs intoxicated on arrival. Head CT negative, labs overall reassuring, ETOH 230. Pending delta troponin, urine, sober re-eval. Will need to clarify if he does have true seizure history or not. Last updated by Liane Gamboa MD at 02/09/23 23:35 Sign Out Comment: 62-year-old male, observed overnight in the emergency room for alcohol intoxication with questionable initial seizure activity at home. This activity, when observed in the emergency room, did not appear to represent seizure activity. The patient is more sober this morning and does not appear to be experiencing alcohol withdrawal. The patient is unsure if he would like to engage in any treatment for his alcohol misuse disorder. Patient signed out to Dr. Ulices Núñez at 8 AM pending discussion with recovery coaches in the local area. Last updated by Mayank Barba MD at 02/10/23 07:59 Discharge Plan Disposition Patient Disposition: Home Discharge Details Clinical Impression: Alcohol intoxication, Hyperglycemia, Noncompliance with medication regimen, Seizure-like activity Primary Care Provider: Unknown,Unknown ED Provider: Ulices Núñez Home Meds and New Rx's Prescriptions: Continued cyclobenzaprine 10 mg Tablet 10 mg PO BID PRN (Reason: Muscle Spasm) ibuprofen 800 mg Tablet 800 mg PO TID PRN PRN (Reason: pain) mirtazapine 30 mg Tablet 60 mg PO HS metformin 1,000 mg Tablet 1,000 mg PO BID AC paroxetine HCl 40 mg Tablet 80 mg PO HS atorvastatin [Lipitor] 40 mg Tablet 40 mg PO QPM Qty: 30 0RF aspirin 81 mg Tablet,Chewable 81 mg PO DAILY Qty: 0 0RF glipizide 5 mg Tablet 5 mg PO DAILY@0730 Qty: 30 0RF fenofibrate nanocrystallized [Tricor] 145 mg Tablet 145 mg PO DAILY Qty: 30 0RF thiamine mononitrate (vit B1) [Vitamin B-1 (mononitrate)] 100 mg Tablet 100 mg PO DAILY Qty: 0 0RF duloxetine 60 mg Capsule,Delayed Release(Dr/Ec) 60 mg PO QHS Discontinued amoxicillin-pot clavulanate 875-125 mg Tablet 1 tab PO BID Qty: 10 0RF Discharge Instructions Instructions: Alcohol Intoxication (ED), Diabetic Hyperglycemia (ED) Additional Instructions: Please stop abusing alcohol. Please take your medication as prescribed. Please contact your primary care physician to arrange follow-up. No operating a motor vehichle or heavy machinery until cleared by your doctor. Return to the ER immediately for any worsening or new concerning symptoms. Referrals: [facility] [Outside]
== END 2023-02-10 11:01 | disposition home or self-care (01) ==
PROVIDERS: Student in an Organized Health Care Education/Training Program; Emergency Provider Student in an Organized Health Care Education/Training Program
DX: G40.909 Epilepsy, unspecified, not intractable, without status epilepticus (principal); F10.120 Alcohol abuse with intoxication, uncomplicated; F19.10 Other psychoactive substance abuse, uncomplicated; E11.9 Type 2 diabetes mellitus without complications; I25.10 Atherosclerotic heart disease of native coronary artery without angina pectoris; I10 Essential (primary) hypertension; E78.5 Hyperlipidemia, unspecified; Z79.84 Long term (current) use of oral hypoglycemic drugs; Z79.82 Long term (current) use of aspirin; Y90.7 Blood alcohol level of 200-239 mg/100 ml; I25.2 Old myocardial infarction
CPT/HCPCS: 00123; 36415; 80053; 80307; 93005; 99284; 70450; 71045; 80320; 80329; 81003; 83735; 84484; 85025; 93010

== ENCOUNTER 2023-03-05 21:01 | Emergency (ER) | payer OTHER, SELFPAY ==
[2023-03-05 21:16] VITALS: BP 189/86; PULSE 83; RESP 18; TEMP 37.3; O2SAT 96
[2023-03-05 21:22] VITALS: BP 189/86; PULSE 83; RESP 19; TEMP 37.2; O2SAT 95
--- NOTE | 2023-03-05 21:45 | DI.RAD_ITS ---
Exam(s) XR PORTABLE CHEST AP EXAM: XR PORTABLE CHEST AP CLINICAL HISTORY: COVID +. TECHNIQUE: 2D digital imaging was performed. COMPARISON: CR,XR XR CHEST 1V IN DI DEPT from 02/09/2023 FINDINGS: Single AP portable view. Heart size is upper normal. The mediastinum is not widened. Lungs are clear. No infiltrates nor obvious pleural effusions. IMPRESSION: No acute pulmonary findings on this single AP portable view of the chest. DATA REPOSITORY: RADIATION DOSE DELIVERED:
--- NOTE | 2023-03-05 21:49 | ED.GENADUL_ITS ---
Discharge Plan Disposition Patient Disposition: Home Discharge Details Clinical Impression: COVID Primary Care Provider: Unknown,Unknown ED Provider: Liane Gamboa Home Meds and New Rx's Prescriptions: No Action cyclobenzaprine 10 mg Tablet 10 mg PO BID PRN (Reason: Muscle Spasm) ibuprofen 800 mg Tablet 800 mg PO TID PRN PRN (Reason: pain) mirtazapine 30 mg Tablet 60 mg PO HS metformin 1,000 mg Tablet 1,000 mg PO BID AC paroxetine HCl 40 mg Tablet 80 mg PO HS atorvastatin [Lipitor] 40 mg Tablet 40 mg PO QPM Qty: 30 0RF glipizide 5 mg Tablet 5 mg PO DAILY@0730 Qty: 30 0RF fenofibrate nanocrystallized [Tricor] 145 mg Tablet 145 mg PO DAILY Qty: 30 0RF thiamine mononitrate (vit B1) [Vitamin B-1 (mononitrate)] 100 mg Tablet 100 mg PO DAILY Qty: 0 0RF duloxetine 60 mg Capsule,Delayed Release(Dr/Ec) 60 mg PO QHS guanfacine 2 mg tablet 2 mg PO DAILY Discharge Instructions Instructions: COVID-19 (Coronavirus Disease 2019) (ED) Additional Instructions: Tylenol and ibuprofen at home for symptoms; follow the directions on the bottle. Some of your medications interact with Paxlovid- please call your primary care doctor in the morning to discuss whether to start this medication or not. It must be started soon after you test positive so it is very important to do this tomorrow. You also need to discuss your blood pressure which is high today and whether you should be taking your medications for this. Return to the emergency department for new or worsening symptoms including chest pain, worsening breathing, inability to keep down fluids, fever that does not respond to medication, or if you have any other concerns. Medical Decision Making 62yo M with hx of polysubstance use, DM, HTN, HLD, CAD, presenting for COVID. Tested positive for COVID yesterday, symptomatic with fatigue, body aches, cough, and shortness of breath with coughing. Home O2 sat reportedly 92%, advised to present to the ED for evaluation. Vital signs and physical exam reassuring on arrival, no tachycardia, hypoxia, or pleuritic pain to suggest pulmonary embolism. He is hypertensive, reports this is his baseline BP, not currently taking any of his prescribed medications other than guanfacine, mirtizapine, and duloxetine. No increased work of breathing, no respiratory distress. No chest pain to suggest cardiac ischemia. No indication for labs or EKG. Overall well appearing and reports symptoms consistent with COVID infection. Out of abundance of caution will get CXR to eval for potential pneu monia; independently reviewed, no pneumonia on my view, agree with radiology read below. Considered paxlovid given risk factors and age however interacts with guanfacine and would be hesitant to dc this; he was advised to call his primary care doctor in the morning to discuss his options as he will still be within the window to start. Repeat vital signs remain reassuring. Advised symptomatic treatment at home, close contact with PCP, PCP followup for blood pressure. Discharged home; discharge instructions including return precautions were reviewed with patient who verbalized understanding. All questions were answered and they are in full agreement with the plan. Imaging Data Radiologic Study: Imaging: X-Ray Radiologist's impression: IMPRESSION: Negative portable chest. HPI General Mode of arrival: ambulatory . Date/Time Provider Initiated Documentation: 03/05/23 21:48 . Limitations to Documentation: no limitations . Information obtained by: patient and old records reviewed . HPI Narrative: 62yo M with hx of polysubstance use, DM, HTN, HLD, CAD, presenting for COVID. Tested positive for COVID yesterday. Having fatigue, body aches, cough, and shortness of breath with coughing. Taking alleve at home for symptoms with some improvement, but still feels unwell. [facility], today reading 92%, [facility] and was advised to present to the ED for evaluation. No fevers, rash, chest pain, syncope, presysncope, LE edema, nausea, vomiting, diarrhea, or other concerns. Related Data Home Medications Medication Instructions Recorded Confirmed cyclobenzaprine 10 mg tablet 10 mg PO BID PRN Muscle Spasm 01/30/20 02/09/23 ibuprofen 800 mg tablet 800 mg PO TID PRN PRN pain 01/30/20 02/09/23 metformin 1,000 mg tablet 1,000 mg PO BID AC 01/30/20 02/09/23 mirtazapine 30 mg tablet 60 mg PO HS 01/30/20 03/05/23 paroxetine HCl 40 mg tablet 80 mg PO HS 01/30/20 02/09/23 atorvastatin 40 mg tablet (Lipitor) 40 mg PO QPM #30 tabs 02/02/20 02/09/23 fenofibrate nanocrystallized 145 145 mg PO DAILY #30 tabs 02/02/20 02/09/23 mg tablet (Tricor) glipizide 5 mg tablet 5 mg PO DAILY@0730 #30 tabs 02/02/20 02/09/23 thiamine mononitrate (vit B1) 100 100 mg PO DAILY #0 tabs 02/02/20 02/09/23 mg tablet (Vitamin B-1 (mononitrate)) duloxetine 60 mg capsule,delayed 60 mg PO QHS 10/14/22 03/05/23 release guanfacine 2 mg tablet 2 mg PO DAILY 03/05/23 03/05/23 Previous Rx's Medication Instructions Recorded atorvastatin 40 mg tablet (Lipitor) 40 mg PO QPM #30 tabs 02/02/20 fenofibrate nanocrystallized 145 145 mg PO DAILY #30 tabs 02/02/20 mg tablet (Tricor) glipizide 5 mg tablet 5 mg PO DAILY@0730 #30 tabs 02/02/20 thiamine mononitrate (vit B1) 100 100 mg PO DAILY #0 tabs 02/02/20 mg tablet (Vitamin B-1 (mononitrate)) Allergies Allergy/AdvReac Type Severity Reaction Status Date / Time No Known Allergies Allergy Unverified 02/09/23 22:43 General Stated Complaint: RespSymp BOB: 2 Review of Systems Narrative: see HPI PFSH All Active Problems (Updated 03/05/23 @ 22:48 by Liane Gamboa MD) COVID (Acute) Seizure-like activity (Acute) Noncompliance with medication regimen (Acute) Hyperglycemia (Acute) Alcohol intoxication (Acute) Hyponatremia (Acute) Mixed hyperlipidemia (Acute) ETOH abuse (Chronic) Non-insulin dependent type 2 diabetes mellitus (Chronic) CAD (coronary artery disease) (Chronic) On mechanically assisted ventilation (Acute) Hypertension (Chronic) Hyperlipidemia (Chronic) Aspiration pneumonia (Acute) Discharge planning issues (Acute) DVT prophylaxis (Acute) LOC (loss of consciousness) (Acute) Chest pain (Acute) Unresponsive (Acute) Alcohol intoxication (Acute) Encounter for intubation (Acute) Medical History Alcohol dependence Cervical radiculopathy due to degenerative joint disease of spine Impulse control disorder Internal thrombosed hemorrhoids Late effects of self-inflicted injury Major depressive disorder, recurrent, unspecified Migraines [facility], during his early 30s Neck pain Obstructive sleep apnea OCD (obsessive compulsive disorder) Polysubstance abuse PTSD (post-traumatic stress disorder) Rectal bleeding Rosacea Sleep disturbance TBI (traumatic brain injury) Surgical History Status post cervical discectomy Family History Other Family history unobtainable due to patient's condition Social History Smoking/Tobacco Use Status: Never Smoking risk assessment performed?: Yes Alcohol Intake: current Alcohol Intake frequency: a few times a month Alcohol type: beer Drug use: Never Substance use type: does not use Housing: house Do you feel safe at home: Yes Do you feel safe in your relationship?: Yes Exam Narrative Exam Narrative: General: Alert, well appearing, well nourished, in no acute distress. Head: Normocephalic, atraumatic Neck: Trachea midline, Neck supple. Cardiac: RRR, no murmurs appreciated Resp: No respiratory distress. CTAB. Abd: Soft, non-distended, nontender Extremities: No deformities. No peripheral edema. Neurologic: GCS 15. Moves all extremities freely against gravity Course Vital Signs Vital signs: Vital Signs Temperature 37.3 C 03/05/23 21:16 Pulse 83 03/05/23 21:16 Respiratory Rate 18 03/05/23 21:16 Blood Pressure 189/86 H 03/05/23 21:16 Pulse Oximetry 96 03/05/23 21:16 Temperature 37.2 C 03/05/23 21:22 Temperature Source Oral 03/05/23 21:22 Pulse 83 03/05/23 21:22 Respiratory Rate 19 03/05/23 21:22 Respiratory Effort Normal, Non-Labored 03/05/23 21:22 Respiratory Depth Normal 03/05/23 21:22 Blood Pressure 189/86 H 03/05/23 21:22 Blood Pressure Position Sitting 03/05/23 21:22 Pulse Oximetry 95 03/05/23 21:22 Oxygen Delivery Method Room Air 03/05/23 21:22 Oxygen Flow Rate 0 03/05/23 21:16 Pain Level 0 03/05/23 21:22 PAWSS Have you Been Recently Intoxicated or Drunk Within the Last 30 days?: Yes Have you Ever Experienced Previous Episodes of Alcohol Withdrawal?: No Have you ever Experienced Withdrawal Seizures?: No Have you ever Experienced Delirium Tremens(DT)s?: No Have you ever undergone Alcohol Rehabilitation Treatment (i.e, inpt ot outpatient treatment programs)?: Yes Have you ever Experienced Blackouts?: No Have you ever Combined Alcohol with other Downers within the last 90 days?: No Have you ever Combined Alcohol with any other Substance of Abuse during the last 90 days?: No Positive Blood Alcohol level on Presentation? [PCS.BAL]: No Evidence of Increased Autonomic Activity (i.e. HR>120, tremor, sweating, agitation, nausea)?: No Result: 2
--- NOTE | 2023-03-05 22:27 | DI.VRAD_ITS ---
PROCEDURE INFORMATION: Exam: XR Chest Exam date and time: 03/05/2023 22:06 Age: 62 years old Clinical indication: Other: Covid TECHNIQUE: Imaging protocol: Radiologic exam of the chest. Views: 1 view. COMPARISON: CR XR CHEST 1V IN DI DEPT 02/09/2023 22:35 FINDINGS: Lungs: No consolidation. Pleural spaces: No pleural effusion. No pneumothorax. Heart/Mediastinum: No cardiomegaly. Bones/joints: Cervical spine fixation hardware is partially assessed. No displaced fracture. IMPRESSION: Negative portable chest. Dictated and Authenticated by: Amy Chaudhry MD. Ordering:JENNIE Rob MD
[2023-03-05 22:58] VITALS: BP 138/82; PULSE 82; RESP 17; TEMP 36.7; O2SAT 97
== END 2023-03-05 22:58 | disposition home or self-care (01) ==
PROVIDERS: Emergency Provider Student in an Organized Health Care Education/Training Program
DX: U07.1 COVID-19 (principal); E11.9 Type 2 diabetes mellitus without complications; I10 Essential (primary) hypertension; E78.5 Hyperlipidemia, unspecified; I25.10 Atherosclerotic heart disease of native coronary artery without angina pectoris; Z79.899 Other long term (current) drug therapy; Z79.84 Long term (current) use of oral hypoglycemic drugs; R05.9 Cough, unspecified; R06.02 Shortness of breath
CPT/HCPCS: 82962; 99283; 71045

== ENCOUNTER 2023-09-14 22:03 | Emergency (ER) | payer OTHER, SELFPAY ==
--- NOTE | 2023-09-14 22:00 | DI.CT_ITS ---
Exam(s) CT HEAD WO EXAM: CT HEAD WO CLINICAL HISTORY: altered, catatonic. TECHNIQUE: Imaging Protocol: Axial computed tomography images with coronal and sagittal reformatted images were created and reviewed COMPARISON: CT CT HEAD WO from 02/09/2023 FINDINGS: There are no skull fractures. There is no fluid in the visualized paranasal sinuses. There is no evidence of intracranial hemorrhage, mass effect, or shift of midline structures. There are no extra-axial fluid collections. The ventricles are not enlarged or shifted and there is no blo od within the ventricular system nor within the basal cisterns. IMPRESSION: No acute intracranial findings on this noninfused CT scan of the brain. RADIATION DOSE DELIVERED: 829.51mGy.cm Total DLP DATA REPOSITORY: All CT scans at this facility are submitted to the National Radiology Data Registry (NRDR) Dose Index Registry (DIR) with the [employer] (A[employer]). RADIATION OPTIMIZATION: All CT scans at this facility use at least one of these dose optimization te chniques: automated exposure control; mA and/or kV adjustment per patient size (includes targeted exa ms where dose is matched to clinical indication); or iterative reconstruction.
--- NOTE | 2023-09-14 22:00 | RT.EKG_ITS ---
APPROVED REPORT Exam: Resting ECG Reason for Exam: altered Patient Location: E HR:96 bpm ECG Measurements Heart Rate 96 AXIS AK 136 P 56 QRSd 92 QRS -20 QT 357 T 33 QTc 450 Conclusion Sinus rhythm...normal P axis, V-rate 60- 99 Physician: no stemi
[2023-09-14] MEDS: Normal Saline 500 ML IV (22:09)
[2023-09-14 22:23] VITALS: BP 113/88; PULSE 93; RESP 17; TEMP 36.2
--- NOTE | 2023-09-14 22:27 | W.ED.GENAD ---
Discharge Plan Disposition Patient Disposition: Home Condition: Good Discharge Details Chief Complaint: GenMedical Clinical Impression: Alcohol intoxication Primary Care Provider: Unknown,Unknown ED Provider: Elliott Lieberman Home Meds and New Rx's Prescriptions: No Action cyclobenzaprine 10 mg Tablet 10 mg PO BID PRN (Reason: Muscle Spasm) ibuprofen 800 mg Tablet 800 mg PO TID PRN PRN (Reason: pain) mirtazapine 30 mg Tablet 60 mg PO HS metformin 1,000 mg Tablet 1,000 mg PO BID AC paroxetine HCl 40 mg Tablet 80 mg PO HS atorvastatin [Lipitor] 40 mg Tablet 40 mg PO QPM Qty: 30 0RF glipizide 5 mg Tablet 5 mg PO DAILY@0730 Qty: 30 0RF fenofibrate nanocrystallized [Tricor] 145 mg Tablet 145 mg PO DAILY Qty: 30 0RF thiamine mononitrate (vit B1) [Vitamin B-1 (mononitrate)] 100 mg Tablet 100 mg PO DAILY Qty: 0 0RF duloxetine 60 mg Capsule,Delayed Release(Dr/Ec) 60 mg PO QHS guanfacine 2 mg tablet 2 mg PO DAILY Discharge Instructions Instructions: Alcohol Intoxication (ED) Additional Instructions: At this time your workup is normal. There is no signs of stroke or other significant abnormalities. Tonight your symptoms appear to be consistent with a component of alcohol intake. If you notice any worsening of your symptoms, or any new symptoms such as vomiting, diarrhea, fever, chills, shortness of breath, chest pain, numbness, weakness, or fainting , please return immediately to the emergency department for reevaluation. Please follow up with your primary care provider as soon as possible for reassessment and reevaluation. As always, it was a pleasure participating in your medical care today. HPI General Date/Time Provider Initiated Documentation: 09/14/23 22:09. HPI Narrative: 62-year-old male with a past medical history of PTSD, alcohol abuse, coronary artery disease type 2 diabetes, high blood pressure, high cholesterol, and previous episodes of catatonia that have been in conjunction with alcohol use, who is a , presents today via [facility] for assessment. Patient was at the [facility] where after drinking what he was told was his fairly regular amount, he became somewhat catatonic. He did follow some commands, but was otherwise fairly unresponsive. Blood glucose was in the 200s, vital signs are otherwise stable. He was brought to the ER for further assessment. Currently here in the ER he refuses to speak or answer any questions to me, however to nursing staff he states that he feels fine, he has a little bit of mild back soreness which he states is normal, but denies any other complaints. Patient is not able to add anything else to history at this time. Related Data Home Medications Medication Instructions Recorded Confirmed cyclobenzaprine 10 mg tablet 10 mg PO BID PRN Muscle Spasm 01/30/20 02/09/23 ibuprofen 800 mg tablet 800 mg PO TID PRN PRN pain 01/30/20 02/09/23 metformin 1,000 mg tablet 1,000 mg PO BID AC 01/30/20 02/09/23 mirtazapine 30 mg tablet 60 mg PO HS 01/30/20 03/05/23 paroxetine HCl 40 mg tablet 80 mg PO HS 01/30/20 02/09/23 atorvastatin 40 mg tablet (Lipitor) 40 mg PO QPM #30 tabs 02/02/20 02/09/23 fenofibrate nanocrystallized 145 145 mg PO DAILY #30 tabs 02/02/20 02/09/23 mg tablet (Tricor) glipizide 5 mg tablet 5 mg PO DAILY@0730 #30 tabs 02/02/20 02/09/23 thiamine mononitrate (vit B1) 100 100 mg PO DAILY #0 tabs 02/02/20 02/09/23 mg tablet (Vitamin B-1 (mononitrate)) duloxetine 60 mg capsule,delayed 60 mg PO QHS 10/14/22 03/05/23 release guanfacine 2 mg tablet 2 mg PO DAILY 03/05/23 03/05/23 Previous Rx's Medication Instructions Recorded atorvastatin 40 mg tablet (Lipitor) 40 mg PO QPM #30 tabs 02/02/20 fenofibrate nanocrystallized 145 145 mg PO DAILY #30 tabs 02/02/20 mg tablet (Tricor) glipizide 5 mg tablet 5 mg PO DAILY@0730 #30 tabs 02/02/20 thiamine mononitrate (vit B1) 100 100 mg PO DAILY #0 tabs 02/02/20 mg tablet (Vitamin B-1 (mononitrate)) Allergies Allergy/AdvReac Type Severity Reaction Status Date / Time No Known Allergies Allergy Unverified 09/15/23 01:16 General BOB: 2 Review of Systems All systems reviewed & are unremarkable except as noted in HPI and below Exam Narrative Exam Narrative: 1.Const: Well-nourished, Well-developed, appearing stated age 2.Eyes: PERRL, no conjunctival injection, and symmetrical lids. Patient tracks me with his eyes. He squints as my hand comes close to his face. 3.ENT: Atraumatic external nose and ears. Moist MM. Neck: Symmetric, trachea midline, No thyromegaly. Patient demonstrates good movement of cervical neck. There is no nuchal rigidity, no nuchal tenderness. Patient is able to flex the neck without any difficulty or significant pain. Negative Kernig's and Brudzinski sign. 4.CVS: +S1/S2, No murmurs or gallops. Peripheral pulses 2+ and equal in all extremities. Brisk capillary refill in all extremities. 5.RESP: Unlabored respiratory effort. Clear to auscultation bilaterally. No wheezes rales or rhonchi 6.GI: Soft, Nontender/Nondistended, No hepatosplenomegaly. No guarding or rebound. 7.MSK: Normocephalic/Atraumatic, Extremities w/o deformity or ttp No cyanosis or clubbing, Normal movement of all extremities 8.Skin: Warm, Dry. No rashes or lesions. 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 Sensation grossly intact, no focal neurologic deficits. 10.Psych: Patient is somewhat catatonic. He will not allow his hand to drop and hit his face, he does not respond to any of my questions and for the most part stares blankly at the wall in front of him. However when nursing staff does interact with him he will answer their questions softly. He follows the commands including for obtaining a urinalysis. He was able to canister holding and urinated and it and follow the commands that were given. He otherwise does not interact with practitioners. Medical Decision Making 62-year-old male with a past medical history of PTSD, alcohol abuse, coronary artery disease type 2 diabetes, high blood pressure, high cholesterol, and previous episodes of catatonia that have been in conjunction with alcohol use, who is a , presents today via [facility] for assessment. Patient was at the [facility] where after drinking what he was told was his fairly regular amount, he became somewhat catatonic. He did follow some commands, but was otherwise fairly unresponsive. Blood glucose was in the 200s, vital signs are otherwise stable. He was brought to the ER for further assessment. Currently here in the ER he refuses to speak or answer any questions to me, however to nursing staff he states that he feels fine, he has a little bit of mild back soreness which he states is normal, but denies any other complaints. Patient is not able to add anything else to history at this time. Exam demonstrates relatively stable appearing male, vital signs stable, no signs of trauma, no nuchal rigidity. He will follow be around the room with his eyes, however he will not answer any my commands.Patient is somewhat catatonic. He will not allow his hand to drop and hit his face, he does not respond to any of my questions and for the most part stares blankly at the wall in front of him. However when nursing staff does interact with him he will answer their questions softly. He follows the commands including for obtaining a urinalysis. He was able to canister holding and urinated and it and follow the commands that were given. He otherwise does not interact with practitioners. During these episodes of movement he does not show any focal neurologic deficits. Suspect alcohol intoxication, conversion disorder, PTSD, or psychosis. Much less likely is stroke or electrolyte disturbance. Symptoms appear inconsistent with cerebellar stroke as he has no vertical horizontal or rotatory nystagmus. Symptoms appear inconsistent with meningitis with no fever or chills or nuchal rigidity or stiffness. We will evaluate for concerning etiologies, gently rehydrate with 500 cc bolus, get a CT scan of the head, monitor closely and reassess. 1:34 AM On reassessment the patient has completely returned to his normal state, there continues to be no focal neurologic deficits. He is talkative and interactive. He states that he does not have someone that can come pick him up, so we will keep watching him here for the remainder of the evening. No evidence of stroke, or other significant abnormality clinically. Vital signs stable, laboratory workup and imaging unremarkable. Patient appropriate for discharge however we will watch here until the morning over the next 5 hours. Symptoms appear consistent with alcohol intoxication which led to a bit of a catatonic episode. I have extensively reviewed the treatment plan and discharge instructions with the patient. I have addressed all patient concerns at this time. The patient was made aware of what symptoms to monitor for that would warrant a return to the emergency department. Discussed the plan with the patient, they demonstrate verbal understanding and agreement with our assessment and plan at this time. The documentation in this chart was dictated using [employer] dictation software. Please excuse any dictation errors. FINDINGS: Brain: No acute intracranial hemorrhage, mass-effect, midline shift, or extra-axial collection is seen. There is a small region of white matter hypoattenuation in the left frontal lobe, nonspecific but commonly seen as a chronic sequela of small vessel ischemic disease. The hudson white matter differentiation appears preserved. There is mild symmetric parenchymal volume loss. Cerebral ventricles: The ventricular system and basilar cisterns appear appropriate in size and configuration. Paranasal sinuses: The visualized paranasal sinuses appear well-aerated. Mastoid air cells: The mastoid air cells appear well-aerated. Auditory system: The middle ear cavities appear clear. Bones: The bony calvarium appears intact. No depressed skull fracture is seen. Soft tissues: No significant scalp lesion is seen. IMPRESSION: No acute intracranial abnormality seen. Thank you for allowing us to participate in the care of your patient. Dictated and Authenticated by: Eduin Bragg MD 09/14/2023 11:31 PM Eastern Time ([place] & [place]) Quality:SDOH Health Related Social Needs: No Data to Display PFSH All Active Problems (Updated 09/15/23 @ 01:38 by Elliott Lieberman DO) Alcohol intoxication (Acute) COVID (Acute) Hyponatremia (Acute) Mixed hyperlipidemia (Acute) ETOH abuse (Chronic) Non-insulin dependent type 2 diabetes mellitus (Chronic) CAD (coronary artery disease) (Chronic) On mechanically assisted ventilation (Acute) Hypertension (Chronic) Hyperlipidemia (Chronic) Aspiration pneumonia (Acute) Discharge planning issues (Acute) DVT prophylaxis (Acute) LOC (loss of consciousness) (Acute) Chest pain (Acute) Unresponsive (Acute) Alcohol intoxication (Acute) Encounter for intubation (Acute) Medical History Rosacea [facility] during his early 30s PTSD (post-traumatic stress disorder) Rectal bleeding Neck pain Late effects of self-inflicted injury Impulse control disorder Polysubstance abuse Sleep disturbance OCD (obsessive compulsive disorder) Major depressive disorder, recurrent, unspecified TBI (traumatic brain injury) Cervical radiculopathy due to degenerative joint disease of spine Migraines Internal thrombosed hemorrhoids Obstructive sleep apnea Alcohol dependence Surgical History Status post cervical discectomy Family History Other Family history unobtainable due to patient's condition Social History Smoking/Tobacco Use Status: Never Smoking risk assessment performed?: Yes Alcohol Intake: current Alcohol Intake frequency: a few times a month Alcohol type: beer Drug use: Never Substance use type: does not use Housing: house Do you feel safe at home: Yes Do you feel safe in your relationship?: Yes
[2023-09-14 22:28] LABS: Abs Immature Grans 0.02 10^3/uL (0.0-0.06); Absolute Basophil Count 0.07 10^3/uL (0.0-0.2); Absolute Eosinophil Count 0.22 10^3/uL (0.0-0.7); Absolute Lymphocyte Count 2.83 10^3/uL (1.2-3.4); Absolute Monocyte Count 0.56 10^3/uL (0.1-0.8); Absolute Neutrophil Count 2.76 10^3/uL (1.2-6.7); BE (Venous) -2 mmol/L (-2-3); Basophils % 1.1 %; Eosinophils % 3.4 %; HCO3 (Venous) 23 mmol/L (23-28); HCT 40.7 % (40.0-50.0); HGB 14.3 g/dL (13.5-17.5); Immature Grans % 0.3 %; Lymphocytes % 43.8 %; MCHC 35.1 % (32.0-36.0); MCV 83 fL (80-95); MPV 9.6 fL (8.0-11.0); Monocytes % 8.7 %; Neutrophils % 42.7 %; O2 Sat (Venous) 96 %; Platelet Count 215 10^3/uL (130-400); RBC 4.93 10^6/uL (4.36-5.78); RDW-SD 36.5 fL; TCO2 (Venous) 20 mmol/L (24-29); WBC 6.46 10^3/uL (4.4-10.8); pCO2 (Venous) 39 mmHg (41-51); pH (Venous) 7.38 (7.31-7.41); pO2 (Venous) 83 mmHg
[2023-09-14 22:50] LABS: ALT 27 U/L (16-63); Albumin 3.8 g/dL (3.4-5.0); Alkaline Phosphatase 83 U/L (46-116); Anion Gap 13.5 mmol/L (3-11); BUN 13 mg/dL (7-18); Bilirubin, Total 0.4 mg/dL (0.2-1.0); CO2 23.5 mmol/L (21.0-32.0); CREATININE 0.9 mg/dL (0.70-1.30); Calcium 8.6 mg/dL (8.5-10.1); Chloride 97 mmol/L (98-107); ETHANOL BLOOD 145.2 mg/dL (<10); Estimated GFR 97.78 (mL/min/1.73m2); Glucose 335 mg/dL (74-106); PTT Activated 33.7 sec (23.6-32.8); Potassium 3.7 mmol/L (3.5-5.1); Prothrombin Time 9.9 sec (9.1-11.1); Sodium 134 mmol/L (136-145); Total Protein 7.4 g/dL (6.4-8.2); Troponin I < 50 ng/L (< or =60)
[2023-09-14 22:52] LABS: Bilirubin Negative (Negative); Blood Negative (Negative); Clarity Clear (Clear); Glucose 500 mg/dL (Negative); Ketones Negative (Negative); Leukocyte Esterase Negative (Negative); Nitrite Negative (Negative); Specific Gravity <= 1.005 (1.005-1.025); Urobilinogen 0.2 mg/dL (Up to 0.2); pH 5.5 (5-8)
[2023-09-14 22:57] LABS: TSH (W/Ref FT4) 3.04 uIU/mL (0.36-3.74)
[2023-09-14 23:10] LABS: *AMPHETAMINES SCREEN URINE Negative (Negative); *BARBITURATES SCREEN URINE Negative (Negative); *BENZODIAZEPINES SCREEN URINE Negative (Negative); Cannabinoids THC Negative (Negative); Cocaine Screen,Urine Negative (Negative); METHADONE URINE SCREEN Negative (Negative); OPIATES URINE SCREEN Negative (Negative)
[2023-09-14 23:12] LABS: Tricyclic Antidepressants Negative (Negative)
[2023-09-14 23:26] LABS: AST 13 U/L (15-37)
--- NOTE | 2023-09-14 23:32 | DI.VRAD_ITS ---
PROCEDURE INFORMATION: Exam: CT Head Without Contrast Exam date and time: 09/14/2023 10:37 PM Age: 62 years old Clinical indication: Altered mental status/memory loss; Confusion or disorientation; Patient HX: Altered, catatonic TECHNIQUE: Imaging protocol: Computed tomography of the head without contrast. Radiation optimization: All CT scans at this facility use at least one of these dose optimization techniques: automated exposure control; mA and/or kV adjustment per patient size (includes targeted exams where dose is matched to clinical indication); or iterative reconstruction. COMPARISON: CT HEAD WO 02/09/2023 10:23 PM FINDINGS: Brain: No acute intracranial hemorrhage, mass-effect, midline shift, or extra-axial collection is seen. There is a small region of white matter hypoattenuation in the left frontal lobe, nonspecific but commonly seen as a chronic sequela of small vessel ischemic disease. The [place] white matter differentiation appears preserved. There is mild symmetric parenchymal volume loss. Cerebral ventricles: The ventricular system and basilar cisterns appear appropriate in size and configuration. Paranasal sinuses: The visualized paranasal sinuses appear well-aerated. Mastoid air cells: The mastoid air cells appear well-aerated. Auditory system: The middle ear cavities appear clear. Bones: The bony calvarium appears intact. No depressed skull fracture is seen. Soft tissues: No significant scalp lesion is seen. IMPRESSION: No acute intracranial abnormality seen. Dictated and Authenticated by: Eduin Bragg MD. Ordering:KIRK Gallagher MD
[2023-09-15 00:10] VITALS: BP 112/82; PULSE 98; RESP 12; RESP 14; TEMP 36.8; O2SAT 99
[2023-09-15 01:38] LABS: Troponin I < 50 ng/L (< or =60)
[2023-09-15 03:36] VITALS: BP 133/86; PULSE 92; RESP 14; O2SAT 98
[2023-09-15 05:42] VITALS: BP 141/86; PULSE 88; RESP 14; TEMP 36.5; O2SAT 98
== END 2023-09-15 05:42 | disposition home or self-care (01) ==
PROVIDERS: Emergency Provider Student in an Organized Health Care Education/Training Program
DX: R41.82 Altered mental status, unspecified; F10.120 Alcohol abuse with intoxication, uncomplicated; I25.10 Atherosclerotic heart disease of native coronary artery without angina pectoris; I25.2 Old myocardial infarction; I10 Essential (primary) hypertension; E78.5 Hyperlipidemia, unspecified; E11.9 Type 2 diabetes mellitus without complications; Z79.84 Long term (current) use of oral hypoglycemic drugs
CPT/HCPCS: 80053; 80307; 82805; 93005; 96360; 96361; 99285; 70450; 80320; 81003; 84443; 84484; 85025; 85610; 85730; 93010; 99284

== ENCOUNTER 2024-11-10 17:13 | Emergency (ER) | payer OTHER, SELFPAY ==
[2024-11-10] VITALS (20 sets, daily range): BP systolic 133–141; BP diastolic 70–99; PULSE 79–111; RESP 15–16; TEMP 37.1; O2SAT 96–97
--- NOTE | 2024-11-10 17:45 | RT.EKG_ITS ---
APPROVED REPORT Exam: Resting ECG Reason for Exam: Midepigastric pain, Nausea, hx MT Patient Location: E HR:106 bpm ECG Measurements Heart Rate 106 AXIS AK 130 P 67 QRSd 94 QRS 9 QT 343 T 52 QTc 455 Conclusion Sinus tachycardia...rate> 99 Sinus tachycardia normal axis normal intervals no acute ischemic changes
--- NOTE | 2024-11-10 17:53 | W.ED.GENAD ---
Discharge Plan Disposition Patient Disposition: Home Condition: Stable Discharge Details Clinical Impression: Colitis, Blood glucose elevated Primary Care Provider: Unknown,Unknown ED Provider: Fatemeh Ortiz Home Meds and New Rx's Prescriptions: New ondansetron 4 mg tablet,disintegrating 4 mg PO Q8H PRN (Reason: nausea and vomiting) 4 Days Qty: 9 0RF Rx Instructions: Take 1 tablet up to 3 times daily as needed for nausea and vomiting Continued mirtazapine 30 mg Tablet 60 mg PO DAILY guanfacine 2 mg tablet 2 mg PO DAILY fluoxetine 40 mg capsule 80 mg PO DAILY Rx Instructions: administer in the morning and at noon/midday hydroxyzine HCl 50 mg tablet 50 mg PO BID metformin 500 mg tablet 500 mg PO BID Discharge Instructions Instructions: Viral gastroenteritis in adults, High Blood Sugar, Adult ED Additional Instructions: At this time the CT shows that you have some bowel inflammation and some inflammation around your bladder, no evidence of urinary tract infection. I do suspect colitis or gastroenteritis. This can be caused by virus. Please take the nausea medication as directed up to 3 times daily as needed. Your blood sugar was elevated today at 238 and you are spilling some glucose in your urine please discuss this with your PCP. They may consider increasing your dose of metformin. Stay away from anything fried fatty spicy or dairy. Please follow-up closely with your PCP return to the ER for any worsening. Follow up with primary care provider in 3-5 days. Return to ED sooner if any worsening or concerns. Referrals: [facility] [Outside] - 1 week Referral Note: Follow-up with PCP, call for an appointment Discharge Data Discharge Date/Time-TO BE ENTERED AT DEPARTURE: 11/10/24 21:34 HPI General Mode of arrival: ambulatory. Date/Time Provider Initiated Documentation: 11/10/24 17:18. Limitations to Documentation: no limitations. Information obtained by: patient, RN notes reviewed and old records reviewed. HPI Narrative: 64 year old male presents to the ER with cc of mid abdominal pain for the last 2 weeks, associated with nausea vomiting and dizziness with any of activity. He also reports sweatiness. He denies any chest pain or shortness of breath. He is a diabetic does take metformin, does have a history of CAD, Type 2 DM, HTN, Hyperlipidemia, OCD, depressive disorder, traumatic brain injury, polysubstance abuse, alcohol dependence reports an alcoholic drink once a week. Related Data Home Medications ?Medication ?Instructions ?Recorded ?Confirmed mirtazapine 30 mg tablet 60 mg PO DAILY 01/30/20 11/10/24 guanfacine 2 mg tablet 2 mg PO DAILY 03/05/23 11/10/24 fluoxetine 40 mg capsule 80 mg PO DAILY 11/10/24 11/10/24 hydroxyzine HCl 50 mg tablet 50 mg PO BID 11/10/24 11/10/24 metformin 500 mg tablet 500 mg PO BID 11/10/24 11/10/24 ondansetron 4 mg disintegrating 4 mg PO Q8H PRN nausea and 11/10/24 tablet vomiting 4 days #9 tabs Previous Rx's ?Medication ?Instructions ?Recorded ondansetron 4 mg disintegrating 4 mg PO Q8H PRN nausea and 11/10/24 tablet vomiting 4 days #9 tabs Allergies Allergy/AdvReac Type Severity Reaction Status Date / Time No Known Allergies Allergy Unverified 11/10/24 17:17 General Stated Complaint: Nausea/Vomit/Diar BOB: 3 Review of Systems All systems reviewed & are unremarkable except as noted in HPI and below Constitutional Constitutional: Reports as per HPI, Reports excessive sweating, Denies headache(s), Reports lethargy and Reports poor appetite ENT Ears, Nose, Mouth, and Throat: Reports dizziness and Denies headache(s) Cardiovascular Cardiovascular: Denies chest pain, Reports diaphoresis, Denies leg edema, Reports dyspnea and Reports dyspnea on exertion Respiratory Respiratory: Denies cough, Reports dyspnea and Reports dyspnea on exertion Gastrointestinal Gastrointestinal: Reports as per HPI, Reports abdominal pain, Denies melena, Denies hematochezia, Denies coffee ground emesis, Reports constipation, Denies diarrhea, Reports nausea, Reports vomiting (Once a day) and Denies hematemesis Genitourinary Genitourinary: Denies difficulty urinating and Denies dysuria Neurologic Neurologic: Reports as per HPI, Denies confusion, Reports dizziness and Denies headache(s) Psychiatric Psychiatric: Denies confusion Endocrine Endocrine: Reports as per HPI and Reports excessive sweating Hematologic/Lymphatic Hematologic/Lymphatic: Denies easy bleeding Allergic/Immunologic Allergic/Immunologic: Reports system reviewed and no additional complaints, except as documented Exam Narrative Exam Narrative: Constitutional: Alert and oriented x3. Appears stated age. Normal body habitus. Head: Normocephalic, no trauma. Eyes: Pupils PERRL, Red reflex noted, EOM's intact. Eyelids symmetrical without lesions, discharge, or swelling. ENT: Bilateral TM's WNL, External ear normal to inspection, no mastoid TTP, swelling, or erythema, Nasal turbinates WNL, no nasal discharge. Normal dentition, Posterior pharynx WNL, no exudate. Chest: RRR, Normal S1, S2, distal pulses intact. Resp: Lungs clear to auscultation bilaterally, no wheezes, rales, or rhonchi. Abdomen: Soft, non-distended, Normoactive bowel sounds all 4 quads. Musculoskeletal: Normal gait, Moves all 4 extremities without difficulty. Skin: No suspicious rashes or lesions. Capillary refill less than 2 sec. Neurologic: Cranial nerves II-XII intact. Alert and oriented x 3. Motor: No deficits noted. Sensory: Intact bilaterally all 4 extremities. Hematologic/Lymphatic: No ecchymosis, no lymphadenopathy. Course Vital Signs Vital signs: Vital Signs Temperature 37.1 C 11/10/24 17:14 Pulse 111 H 11/10/24 17:14 Respiratory Rate 15 11/10/24 17:14 Blood Pressure 133/99 H 11/10/24 17:14 Pulse Oximetry 97 11/10/24 17:14 Temperature 37.1 C 11/10/24 17:17 Temperature Source Temporal Artery Scan 11/10/24 17:17 Pulse 111 H 11/10/24 17:17 Respiratory Rate 15 11/10/24 17:17 Blood Pressure 133/99 H 11/10/24 17:17 Blood Pressure Position Sitting 11/10/24 17:17 Pulse Oximetry 97 11/10/24 17:17 Oxygen Delivery Method Room Air 11/10/24 17:17 Oxygen Flow Rate 0 11/10/24 17:17 Pain Level 0 11/10/24 17:17 Medical Decision Making 64 year old male presents to the ER with cc of mid abdominal pain for the last 2 weeks, associated with nausea vomiting and dizziness with any of activity. He also reports sweatiness. He denies any chest pain or shortness of breath. He is a diabetic does take metformin, does have a history of CAD, Type 2 DM, HTN, Hyperlipidemia, OCD, depressive disorder, traumatic brain injury, polysubstance abuse, alcohol dependence reports an alcoholic drink once a week. EKG was reviewed by myself and Dr. Mary Lamb ER attending, no ST elevation or depression, sinus tachycardia, no ischemic changes. Please see official report. Labs were completed including CBC CMP lipase urinalysis no leukocytosis, anion gap 12.2 glucose 238, he is spilling glucose in his urine at 500 no evidence of UTI. CT images show evidence of possible colitis and some perivascular fat stranding, and bladder wall thickening. No evidence of UTI. Will have patient follow-up with PCP closely at the [facility]. Will send home with Fast Societyan 3 tablets ago he verbalized understanding. Discussed diet including stay away from anything fried fatty spicy or dairy. He verbalized understanding. This text was generated using [employer] dictation system, please disregard any oddities of phrase or misspellings. Medical Records Medical records reviewed: Yes I reviewed the patient's medical records. Imaging Data Radiologic Study: Imaging: CT Scan Radiologist's impression: IMPRESSION: 1. Mild bladder wall thickening and some perivesicular fat stranding. Findings may be associated with acute cystitis. Please correlate with urinalysis. 2. Segmental wall thickening of the left transverse colon with mild pericolonic fat stranding. Differential considerations include acute non perforated colitis. 3. Normal appendix. Thank you for allowing us to participate in the care of your patient. Dictated and Authenticated by: Trang Bonds MD Lab Data Lab results reviewed: Yes I reviewed the patient's lab results. Labs: Laboratory Tests Range/Units 11/10/24 11/10/24 18:35 20:36 WBC (4.4-10.8) 10^3/uL 9.15 RBC (4.36-5.78) 10^6/uL 5.81 H Hgb (13.5-17.5) g/dL 16.3 Hct (40.0-50.0) % 47.2 MCV (80-95) fL 81 MCH (27.0-33.0) pg 28.1 MCHC (32.0-36.0) % 34.5 RDW (11.8-14.1) % 12.5 Plt Count (130-400) 10^3/uL 261 MPV (8.0-11.0) fL 9.9 Immature Gran % % 0.4 Neutrophils % % 63.8 Lymphocytes % % 27.1 Monocytes % % 6.8 Eosinophils % % 1.2 Basophils % % 0.7 Nucleated RBC % (0.0-0.3) % 0.0 Absolute Neutrophils (1.2-6.7) 10^3/uL 5.84 Absolute Lymphocytes (1.2-3.4) 10^3/uL 2.48 Absolute Monocytes (0.1-0.8) 10^3/uL 0.62 Absolute Eosinophils (0.0-0.7) 10^3/uL 0.11 Absolute Basophils (0.0-0.2) 10^3/uL 0.06 Sodium (136-145) mmol/L 138 Potassium (3.5-5.1) mmol/L 4.0 Chloride (98-107) mmol/L 101 Carbon Dioxide (21.0-32.0) mmol/L 24.8 Anion Gap (3-11) mmol/L 12.2 H BUN (7-18) mg/dL 14 Creatinine (0.70-1.30) mg/dL 1.3 Est GFR (CKD-EPI 2020) (mL/min/1.73m2) 62.11 Glucose (74-106) mg/dL 238 H Calcium (8.5-10.1) mg/dL 9.2 Magnesium (1.8-2.4) mg/dL 2.2 Total Bilirubin (0.2-1.0) mg/dL 0.7 AST (15-37) U/L 21 ALT (16-63) U/L 34 Alkaline Phosphatase (46-116) U/L 83 Total Protein (6.4-8.2) g/dL 8.0 Albumin (3.4-5.0) g/dL 4.3 Lipase (<78) U/L 36 Urine Color (Yellow) Yellow Urine Clarity (Clear) Clear Urine pH (5-8) 5.5 Ur Specific [place] (1.005-1.025) 1.025 Urine Protein (Neg-Trace) mg/dL Trace Urine Ketones (Negative) mg/dL Negative Urine Blood (Negative) Negative Urine Nitrite (Negative) Negative Urine Bilirubin (Negative) Negative Urine Urobilinogen (Up to 0.2) mg/dL 0.2 Ur Leukocyte Esterase (Negative) Negative Urine Glucose (Negative) mg/dL 500 H PFSH All Active Problems (Updated 11/10/24 @ 21:21 by Fatemeh Ortiz NP) Blood glucose elevated (Acute) Colitis (Acute) COVID (Acute) Hyponatremia (Acute) Mixed hyperlipidemia (Acute) ETOH abuse (Chronic) Non-insulin dependent type 2 diabetes mellitus (Chronic) CAD (coronary artery disease) (Chronic) On mechanically assisted ventilation (Acute) Hypertension (Chronic) Hyperlipidemia (Chronic) Aspiration pneumonia (Acute) Discharge planning issues (Acute) DVT prophylaxis (Acute) LOC (loss of consciousness) (Acute) Chest pain (Acute) Unresponsive (Acute) Alcohol intoxication (Acute) Encounter for intubation (Acute) Medical History [place] Myocardial infarction per [facility] records, during his early 30s PTSD (post-traumatic stress disorder) Rectal bleeding Neck pain Late effects of self-inflicted injury Impulse control disorder Polysubstance abuse Sleep disturbance OCD (obsessive compulsive disorder) Major depressive disorder, recurrent, unspecified TBI (traumatic brain injury) Cervical radiculopathy due to degenerative joint disease of spine Migraines Internal thrombosed hemorrhoids Obstructive sleep apnea Alcohol dependence Surgical History Status post cervical discectomy Family History Other Family history unobtainable due to patient's condition Social History Smoking/Tobacco Use Status: Never Smoking risk assessment performed?: Yes Alcohol Intake: current Alcohol Intake frequency: a few times a month Alcohol type: beer Drug use: Never Substance use type: does not use Housing: house Do you feel safe at home: Yes Do you feel safe in your relationship?: Yes
[2024-11-10] MEDS: Ondansetron 4 MG/2 ML VIAL IVP (18:39)
[2024-11-10] MEDS: Normal Saline 1,000 ML 1000 ML IV (18:41)
[2024-11-10 18:47] LABS: Abs Immature Grans 0.04 10^3/uL (0.0-0.06); HCT 47.2 % (40.0-50.0); HGB 16.3 g/dL (13.5-17.5); Immature Grans % 0.4 %; MCH 28.1 pg (27.0-33.0); MCHC 34.5 % (32.0-36.0); MCV 81 fL (80-95); MPV 9.9 fL (8.0-11.0); Platelet Count 261 10^3/uL (130-400); RBC 5.81 10^6/uL (4.36-5.78); RDW 12.5 % (11.8-14.1); RDW-SD 37.0 fL; WBC 9.15 10^3/uL (4.4-10.8)
[2024-11-10 18:58] LABS: Lipase 36 U/L (<78)
[2024-11-10 19:04] LABS: ALT 34 U/L (16-63); AST 21 U/L (15-37); Albumin 4.3 g/dL (3.4-5.0); Alkaline Phosphatase 83 U/L (46-116); Anion Gap 12.2 mmol/L (3-11); BUN 14 mg/dL (7-18); Bilirubin, Total 0.7 mg/dL (0.2-1.0); CO2 24.8 mmol/L (21.0-32.0); Calcium 9.2 mg/dL (8.5-10.1); Chloride 101 mmol/L (98-107); Estimated GFR 62.11 (mL/min/1.73m2); Glucose 238 mg/dL (74-106); Magnesium 2.2 mg/dL (1.8-2.4); Potassium 4.0 mmol/L (3.5-5.1); Sodium 138 mmol/L (136-145); Total Protein 8.0 g/dL (6.4-8.2)
[2024-11-10] MEDS: Normal Saline - Diluent 50 ML VIAL IJ (20:18)
[2024-11-10] MEDS: Omnipaque 350 MG/ML 100 ML BTL IJ (20:18)
--- NOTE | 2024-11-10 20:19 | DI.CT_ITS ---
Exam(s) CT ABDOMEN PELVIS W EXAM: CT ABDOMEN PELVIS W CLINICAL HISTORY: Abdominal pain, N/V TECHNIQUE: Imaging Protocol: Axial computed tomography images with coronal and sagittal reformatted images were created and reviewed. CONTRAST MATERIAL: Intravenous: Omnipaque 350 Contrast volume:75 mL Oral: No COMPARISON: CT ABD PELVIS WITH CONTRAST from 07/14/[address] THORAX ABD/PEL CTA from 01/30/2020 FINDINGS: ABDOMEN: Lung Bases: No acute abnormality. Liver: Normal density. No measurable mass. Portal, Superior Mesenteric, and Splenic Veins: Unremarkable. Gallbladder and Biliary Tract: No radiodense calculus or dilation. Pancreas: Normal density, no abnormal calcifications or inflammatory process. Spleen: Normal. Adrenals: No masses seen. Kidneys: Normal size, contour and axis. No radiodense stones or obstructive uropathy. There are bilateral simple renal cysts. No follow-up is recommended. Abdominal Aorta: Abdominal portion non-dilated. Atherosclerotic calcification is present. Bowel: There is no evidence of bowel obstruction. The transverse colon is collapsed limiting evaluation. There is a question of pericolonic stranding around the transverse colon and arm colitis cannot be excluded. Please correlate clinically. Appendix is unremarkable. Peritoneal Cavity: No ascites, collection or mesenteric inflammatory response. No free air. Lymph Nodes: Within normal limits. Bones: Within normal limits for the patient's age. Soft Tissues: Unremarkable. PELVIS: Bladder: The urinary bladder is incompletely distended. This may account for the mild thickening of the wall of the urinary bladder. Cystitis cannot be excluded. Reproductive Organs: Unremarkable as visualized. Lymph Nodes: Within normal limits. Bones: Within normal limits for the patient's age. IMPRESSION: 1. No definite acute abdominal or pelvic process. 2. Incompletely distended transverse colon. This limits evaluation. Mild colitis cannot be excluded. Please correlate clinically. 3. Mild wall thickening seen in the urinary bladder. This may be due to underdistention. Cystitis cannot be excluded. 4. Bilateral simple renal cysts. No follow-up is recommended. 5. The preliminary [facility] report was reviewed. RADIATION DOSE DELIVERED: 576.74mGy.cm Total DLP DATA REPOSITORY: All CT scans at this facility are submitted to the National Radiology Data Registry (NRDR) Dose Index Registry (DIR) with the [employer] (ACR). RADIATION OPTIMIZATION: All CT scans at this facility use at least one of these dose optimization techniques: automated exposure control; mA and/or kV adjustment per patient size (includes targeted exams where dose is matched to clinical indication); or iterative reconstruction.
[2024-11-10 20:43] LABS: Glucose 500 mg/dL (Negative)
--- NOTE | 2024-11-10 20:44 | DI.VRAD_ITS ---
PROCEDURE INFORMATION: Exam: CT Abdomen And Pelvis With Contrast Exam date and time: 11/10/2024 8:08 PM Age: 64 years old Clinical indication: Nausea and vomiting; Abdominal pain; Generalized; Abd pain, n/v TECHNIQUE: Imaging protocol: Computed tomography of the abdomen and pelvis with contrast. Radiation optimization: All CT scans at this facility use at least one of these dose optimization techniques: automated exposure control; mA and/or kV adjustment per patient size (includes targeted exams where dose is matched to clinical indication); or iterative reconstruction. Contrast material: [id number]; Contrast volume: 75 ml; Contrast route: INTRAVENOUS (IV); COMPARISON: CT THORAX ABD/PEL CTA 01/30/2020 8:04 PM FINDINGS: Lungs: Mild atelectasis is present at the dependent lung bases. Liver: The liver has a normal appearance. Gallbladder and biliary ducts: The gallbladder is unremarkable. No biliary ductal dilatation. Pancreas: The pancreas demonstrates normal size. No pancreatic ductal dilatation. Spleen: Normal. No splenomegaly. Adrenal glands: The adrenal glands have a normal appearance. Kidneys and ureters: The kidneys are normal in size. Low-density cortical cystic lesions are present bilaterally within the kidneys. No nephrolithiasis or hydronephrosis. No hydroureter or ureterolithiasis. Stomach and bowel: The bowel demonstrates overall normal caliber and wall thickness. There is segmental wall thickening within the left aspect of the transverse colon. No pericolonic free fluid. There is trace pericolonic fat stranding. Appendix: The appendix is thin walled. Intraperitoneal space: Unremarkable. No free air. No significant fluid collection. Vasculature: There are scattered atheromatous calcifications throughout the aorta and iliac arteries. Lymph nodes: No enlarged lymph nodes. Urinary bladder: There is mild circumferential wall thickening of the bladder and trace perivesicular fat stranding. Reproductive: Unremarkable as visualized. Bones/joints: Bones have a normal appearance. No acute fracture or suspicious bone lesion. Soft tissues: Unremarkable. IMPRESSION: 1. Mild bladder wall thickening and some perivesicular fat stranding. Findings may be associated with acute cystitis. Please correlate with urinalysis. 2. Segmental wall thickening of the left transverse colon with mild pericolonic fat stranding. Differential considerations include acute non perforated colitis. 3. Normal appendix. Dictated and Authenticated by: Trang Bonds MD. Orderin Diana Weldon MD
[2024-11-10] MEDS: Ondansetron O.D.T. 4 MG TABEF, 3 TABS/BTL PO (21:33)
== END 2024-11-10 21:34 | disposition home or self-care (01) ==
PROVIDERS: Emergency Provider Registered Nurse Emergency
DX: R73.9 Hyperglycemia, unspecified; K52.9 Noninfective gastroenteritis and colitis, unspecified; R11.2 Nausea with vomiting, unspecified; R42 Dizziness and giddiness; Z79.4 Long term (current) use of insulin; E11.9 Type 2 diabetes mellitus without complications
CPT/HCPCS: 80053; 83690; 93005; 96361; 99285; 74177; 81003; 83735; 85025; 93010; 99284; J2405; J3490